=== PATIENT | female | born 1955 | race Caucasian/White ===

== ENCOUNTER → 2016-10-31 | Outpatient (CLI) | payer MEDICAID ==
--- NOTE | 2016-10-31 09:35 | FL ---
EXAMINATION TYPE: FL barium swallow DATE OF EXAM: 10/31/2016 9:25 AM COMPARISON: NONE HISTORY: Heartburn TECHNIQUE: Double contrast GI is performed. 8 seconds of fluoroscopic time utilized. FINDINGS: Barium and air was swallowed without difficulty and passed and the esophagus without delay. Esophageal peristalsis and motility was normal. There was no evidence of a hiatal hernia. There was mild gastroesophageal reflux. Incidental note made of surgical clips near the gallbladder fossa. IMPRESSION: 1. Mild gastroesophageal reflux.
== END | disposition home or self-care (01) ==
LOC: RADFLWHC 08:50
PROVIDERS: ATTEND Family Medicine
DX: K21.9 Gastro-esophageal reflux disease without esophagitis (principal)
CPT/HCPCS: 74220

== ENCOUNTER 2017-04-16 22:35 | Observation (INO) | payer MEDICAID ==
[2017-04-16] MEDS ORDERED: NITROGLYCERIN OINT 1 INCH/GM PACKET TOPICAL STA (23:03)
[2017-04-16] MEDS ORDERED: ASPIRIN 81 MG PO STA (23:03)
[2017-04-16 23:19] LABS: Basophils # (A) 0.1 k/uL (0-0.2); Basophils % (A) 1 %; CHCM 34.6; Eosinophils # (A) 0.1 k/uL (0-0.7); Eosinophils % (A) 2 %; HDW 2.41; HGB 14.1 gm/dL (11.4-16.0); Luc # (Auto) 0.15; Luc % (Auto) 2; Lymphocytes # (A) 2.2 k/uL (1.0-4.8); Lymphocytes % (A) 24 %; MCH 31.1 pg (25.0-35.0); MCHC 33.5 g/dL (31.0-37.0); MCV 92.8 fL (80.0-100.0); Mean Platelet Volume 8.2; Monocytes # (A) 0.5 k/uL (0-1.0); Monocytes % (A) 5 %; Neutrophils # (A) 5.9 k/uL (1.3-7.7); Neutrophils % (A) 67 %; RBC 4.53 m/uL (3.80-5.40); RDW 13.4 % (11.5-15.5); WBC 8.9 k/uL (3.8-10.6); WBC (Perox) 8.57
[2017-04-16 23:26] LABS: ALT 45 U/L (9-52); AST 28 U/L (14-36); Alkaline Phosphatase 82 U/L (38-126); Anion Gap 12 mmol/L; Blood Urea Nitrogen 16 mg/dL (7-17); Calcium 9.9 mg/dL (8.4-10.2); Carbon Dioxide 25 mmol/L (22-30); Chloride 102 mmol/L (98-107); Glucose 132 mg/dL (74-99); Magnesium 1.5 mg/dL (1.6-2.3); Non-African American GFR(MDRD) >60 (>60 ml/min/1.73 sqM); Potassium 3.8 mmol/L (3.5-5.1); Sodium 139 mmol/L (137-145); Total Bilirubin 0.3 mg/dL (0.2-1.3); Total Protein 7.4 g/dL (6.3-8.2)
[2017-04-16 23:31] LABS: Partial Thromboplastin Time 22.7 sec (22.0-30.0); Prothrombin Time 10.3 sec (9.0-12.0)
[2017-04-16 23:37] LABS: Creatine Kinase 49 U/L (30-135)
--- NOTE | 2017-04-16 23:46 | XR ---
EXAM: XR Chest, 2 Views CLINICAL HISTORY: Reason: Chest Pain TECHNIQUE: Frontal and lateral views of the chest. COMPARISON: CXR 11/09/14 FINDINGS: Lungs: Unremarkable. No consolidation. Pleural space: Unremarkable. No pneumothorax. Heart: Unremarkable. No cardiomegaly. Mediastinum: Unremarkable. Bones/joints: Multilevel degenerative changes of the spine. IMPRESSION: No acute findings.
[2017-04-16 23:52] LABS: Creatine Kinase MB 0.5 ng/mL (0.0-2.4); Troponin I <0.012 ng/mL (0.000-0.034)
--- NOTE | 2017-04-17 00:39 | ED ---
Chest Pain HPI - General Chief Complaint: Chest Pain Stated Complaint: Chest pains Time Seen by Provider: 04/16/17 22:58 Source: patient Mode of arrival: wheelchair Limitations: no limitations - History of Present Illness Initial Comments: This 61-year-old white female presents with with a complaint of some chest pain and palpitations which started around 9:00 this evening. She states that it felt like her heart was beating very fast. She had some mild left- sided chest pain at that time as well. It is hard for described the exact sensation. She had some mild shortness of breath as well. She denies any previous similar incidents. She just had a stress test several months ago which was negative. She had a heart catheterization in the last year or so ago which was apparently negative. She denies any leg pain or swelling. She denies any history of DVT or PE. His been no cough or fever. She states that there is a family history of cardiac disease as well. No other complaints or modifying factors. - Related Data Home Medications Medication Instructions Recorded Confirmed Aspirin EC [Ecotrin] 81 mg PO DAILY 05/10/14 04/16/17 Metoprolol Tartrate [Lopressor] 50 mg PO BID 05/10/14 04/16/17 Omeprazole [PriLOSEC] 20 mg PO DAILY 05/10/14 04/16/17 metFORMIN HCL [Glucophage] 500 mg PO DAILY 05/10/14 04/16/17 Ibuprofen [Motrin] 600 mg PO ONCE PRN 04/16/17 04/16/17 glipiZIDE [Glucotrol] 5 mg PO DAILY 04/16/17 04/16/17 sitaGLIPtin PHOSPHATE [Januvia] 100 mg PO DAILY 04/16/17 04/16/17 Allergies Allergy/AdvReac Type Severity Reaction Status Date / Time Penicillins Allergy Unknown Rash/Hives Verified 04/16/17 23:08 Review of Systems ROS Statement: Those systems with pertinent positive or pertinent negative responses have been documented in the HPI. ROS Other: All systems not noted in ROS Statement are negative. 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 History of Any Multi-Drug Resistant Organisms: None Reported Past Surgical History: Appendectomy, Cholecystectomy, Hysterectomy Additional Past Surgical History / Comment(s): ISABELL CARPAL TUNNEL. Past Anesthesia/Blood Transfusion Reactions: No Reported Reaction Past Psychological History: No Psychological Hx Reported Smoking Status: Never smoker Past Alcohol Use History: None Reported Past Drug Use History: None Reported - Past Family History Mother Family Medical History: Hypertension Father Family Medical History: Diabetes Mellitus, Hypertension Additional Family Medical History / Comment(s): heart problems General Exam - General Exam Comments Initial Comments: GENERAL: The patient is well nourished and well hydrated. VITAL SIGNS: Heart rate, blood pressure, respiratory rate reviewed as recorded in nurse's notes. EYES: Pupils are round and reactive. Extraocular movements are intact. No conjunctival / lid redness or swelling. ENT: No external evidence of injury, swelling, or ecchymosis. Airway is patent. Throat is clear. NECK: Nontender. No swelling or evidence of injury. No subcutaneous emphysema. Trachea is midline. No thyroid mass. HEART: Regular rate and rhythm. Good peripheral pulses. LUNGS/CHEST: Breath sounds clear and equal bilaterally. No rales, rhonchi, or wheezes. No ecchymosis, subcutaneous emphysema, or tenderness. ABDOMEN: Abdomen soft without tenderness. No palpable masses or organomegaly. No peritoneal signs. No abdominal wall swelling or ecchymosis. EXTREMITIES: No extremity tenderness. Normal muscle tone and function. No thoracolumbar tenderness. NEUROLOGIC: Sensation is grossly intact. Cranial nerve exam reveals face is symmetrical, tongue is midline, speech is clear. SKIN: No abrasions or ecchymosis is noted. No induration or masses noted. PSYCHIATRIC: Alert and oriented. Appropriate behavior and judgment. Limitations: no limitations Course Vital Signs 04/16/17 04/16/17 04/17/17 22:37 23:07 00:06 Temperature 98.2 F Pulse Rate 78 77 64 Respiratory 20 18 18 Rate Blood Pressure 194/87 189/79 145/67 O2 Sat by Pulse 97 98 96 Oximetry Chest Pain MDM - MDM The patient was seen and examined. All diagnostics were reviewed. The EKG shows a normal sinus rhythm at a rate of 73. There is no acute ST-T wave changes identified. The SC interval is 170, the QRS duration is 84, and the QTc interval is 438. The patient's cardiac profile labs and d-dimer are all negative. The chest x-ray does not show any acute process. The exact cause of her symptoms is not definitively determined. The possibility of acute coronary syndrome is possible. The possibility of a cardiac arrhythmia is possible as well. It is felt as though she would benefit from admission to the hospital. The case will be discussed with internal medicine in the near future and she will be admitted with cardiology to consult. Disposition Clinical Impression: Dyspnea, Chest pain, Palpitations Disposition: ADMITTED IP TO THIS [facility] Condition: Good Time of Disposition: 00:39 Decision Date: 04/17/17 Decision Time: 00:39
[2017-04-17] MEDS ORDERED: NITROGLYCERIN SL TABS 0.4 MG TAB SUBLINGUAL PRN (00:40)
[2017-04-17] MEDS ORDERED: IBUPROFEN 200 MG TAB PO PRN (00:43)
[2017-04-17] MEDS ORDERED: ACETAMINOPHEN TAB 500 MG TAB PO STA (00:44)
[2017-04-17 01:27] VITALS: BMI 42.3
[2017-04-17] MEDS: ACETAMINOPHEN TAB 325 MG TAB PO PRN ×2 (03:48→12:46)
[2017-04-17 05:42] LABS: Creatine Kinase 39 U/L (30-135)
[2017-04-17 05:55] LABS: Creatine Kinase MB 0.5 ng/mL (0.0-2.4); Troponin I <0.012 ng/mL (0.000-0.034)
[2017-04-17] MEDS ORDERED: NITROGLYCERIN OINT 1 INCH/GM PACKET TOPICAL SCH (06:00)
[2017-04-17 06:50] LABS: Glucose,Whole Blood 121 mg/dL (75-99)
[2017-04-17 08:07] VITALS: RESP 18
[2017-04-17] MEDS ORDERED: LINAGLIPTIN 5 MG TABLET PO SCH (09:00)
[2017-04-17] MEDS ORDERED: glipiZIDE 5 MG TAB PO SCH (09:00)
[2017-04-17] MEDS ORDERED: METOPROLOL TARTRATE 50 MG TAB PO SCH (09:00)
[2017-04-17] MEDS ORDERED: PANTOPRAZOLE 40 MG TABLET PO SCH (09:00)
[2017-04-17] MEDS ORDERED: metFORMIN 500 MG TAB PO SCH (09:00)
[2017-04-17] MEDS ORDERED: ENOXAPARIN 40 MG/0.4 ML SYRINGE SQ SCH (09:00)
--- NOTE | 2017-04-17 09:44 | P.CRDCN ---
History of Present Illness Consult date: 04/17/17 History of present illness: This is a 61 year old female. She has past medical history significant for HTN, DM, dyslipidemia, morbid obesity and family history of CAD. She presented to the hospital with complaints of pounding in her chest lasting approximately one hour. She states over the previous week she has noticed some right shoulder and midsternal achiness that she did not correlate with her heart until these palpitations began. At that time she decided she should come to the emergency department for evaluation and see if the tumor possibly related. She complains of associated shortness of breath and dizziness as well. Palpitations subsided on their own after approximately one hour but the achiness in the right shoulder and midsternal region has remained. She states she's never felt these palpitation type symptoms before. She recently had a full cardiac workup as an outpatient with Dr. GODINEZ per week including stress test and echocardiogram. Her Barb scan was negative for any ischemia and her echocardiogram revealed normal LV function with an ejection fraction of 55%. EKG on admission indicates a normal sinus mechanism with no T-wave abnormality or ST changes. Chest x-ray is negative for any acute cardiopulmonary process. Troponins are negative 2. D-dimer is negative. Magnesium 1.5. Blood pressure this morning 155/65 with a heart rate of 54. Maintained on metoprolol 50 mg twice a day. Review of Systems REVIEW OF SYSTEMS: Patient denies any chest discomfort. No shortness of breath. No diaphoresis. Denies headache, dizziness, blurred vision, double vision. No dyspnea on exertion. Patient denies any stomach discomfort. No nausea, vomiting. No hematochezia. No hematemesis. Denies any black stools or blood in his stools. No syncope. No palpitations. No cough. No recent fever or chills. No muscle weakness or numbness. 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 History of Any Multi-Drug Resistant Organisms: None Reported Past Surgical History: Appendectomy, Cholecystectomy, Heart Catheterization, Hysterectomy Additional Past Surgical History / Comment(s): ISABELL CARPAL TUNNEL. Past Anesthesia/Blood Transfusion Reactions: No Reported Reaction Past Psychological History: No Psychological Hx Reported Smoking Status: Never smoker Past Alcohol Use History: None Reported Past Drug Use History: None Reported - Past Family History Mother Family Medical History: Hypertension Father Family Medical History: Diabetes Mellitus, Hypertension Additional Family Medical History / Comment(s): heart problems Medications and Allergies Home Medications Medication Instructions Recorded Confirmed Type Aspirin EC [Ecotrin] 81 mg PO DAILY 05/10/14 04/16/17 History Metoprolol Tartrate [Lopressor] 50 mg PO BID 05/10/14 04/16/17 History Omeprazole [PriLOSEC] 20 mg PO DAILY 05/10/14 04/16/17 History metFORMIN HCL [Glucophage] 500 mg PO DAILY 05/10/14 04/16/17 History Ibuprofen [Motrin] 600 mg PO ONCE PRN 04/16/17 04/16/17 History glipiZIDE [Glucotrol] 5 mg PO DAILY 04/16/17 04/16/17 History sitaGLIPtin PHOSPHATE [Januvia] 100 mg PO DAILY 04/16/17 04/16/17 History Allergies Allergy/AdvReac Type Severity Reaction Status Date / Time Penicillins Allergy Unknown Rash/Hives Verified 04/16/17 23:08 Physical Exam Vitals: Vital Signs Temp Pulse Pulse Resp BP BP Pulse Ox 04/17/17 04:00 52 L 16 04/17/17 03:55 98.0 F 54 L 16 155/65 97 04/17/17 01:19 97.8 F 62 16 151/66 96 04/17/17 01:05 97.5 F L 63 18 133/60 98 04/17/17 00:06 64 18 145/67 96 04/16/17 23:07 77 18 189/79 98 04/16/17 22:37 98.2 F 78 20 194/87 97 Intake and Output 04/16/17 04/17/17 04/17/17 22:59 06:59 14:59 Other: Voiding Method Toilet # Voids 3 Weight 99.79 kg 105 kg GENERAL: This is a 61-year-old female in no apparent distress at the time of my examination. Obese. HEENT: Head is atraumatic, normocephalic. Pupils are equal, round. Sclerae anicteric. Conjunctivae are clear. Mucous membranes of the mouth are moist. Neck is supple. There is no jugular venous distention. No carotid bruit is heard. LUNGS: Clear to auscultation no wheezes, rales or rhonchi. No chest wall tenderness is noted on palpation or with deep breathing. HEART: Regular rate and rhythm without murmurs, rubs or gallops. S1 and S2 heard. ABDOMEN: Soft, nontender. Bowel sounds are heard. No organomegaly noted. EXTREMITIES: 2+ peripheral pulses with no evidence of peripheral edema and no calf tenderness noted. NEUROLOGIC: Patient is awake, alert and oriented x3. Results 04/16/17 23:00 04/16/17 23:00 Cardiac Enzymes 04/16/17 04/16/17 04/17/17 Range/Units 23:00 23:00 04:52 AST 28 (14-36) U/L CK-MB (CK-2) 0.5 0.5 (0.0-2.4) ng/mL Troponin I <0.012 <0.012 (0.000-0.034) ng/mL Coagulation 04/16/17 Range/Units 23:00 PT 10.3 (9.0-12.0) sec APTT 22.7 (22.0-30.0) sec CBC 04/16/17 Range/Units 23:00 WBC 8.9 (3.8-10.6) k/uL RBC 4.53 (3.80-5.40) m/uL Hgb 14.1 (11.4-16.0) gm/dL Hct 42.0 (34.0-46.0) % Plt Count 216 (150-450) k/uL Comprehensive Metabolic Panel 04/16/17 Range/Units 23:00 Sodium 139 (137-145) mmol/L Potassium 3.8 (3.5-5.1) mmol/L Chloride 102 (98-107) mmol/L Carbon Dioxide 25 (22-30) mmol/L BUN 16 (7-17) mg/dL Creatinine 0.90 (0.52-1.04) mg/dL Glucose 132 H (74-99) mg/dL Calcium 9.9 (8.4-10.2) mg/dL AST 28 (14-36) U/L ALT 45 (9-52) U/L Alkaline Phosphatase 82 (38-126) U/L Total Protein 7.4 (6.3-8.2) g/dL Albumin 4.1 (3.5-5.0) g/dL Current Medications Generic Name Dose Route Start Last Admin Trade Name Freq PRN Reason Stop Dose Admin Acetaminophen 650 mg 04/17/17 00:44 04/17/17 03:48 Tylenol Tab PO 650 mg Q6H PRN Administration Headache Aspirin 325 mg 04/18/17 09:00 Aspirin PO DAILY [facility] Enoxaparin Sodium 40 mg 04/17/17 09:00 Lovenox SQ DAILY AKIN Glipizide 5 mg 04/17/17 09:00 Glucotrol PO DAILY AKIN Ibuprofen 600 mg 04/17/17 00:43 Advil PO ONCE PRN Pain Linagliptin 5 mg 04/17/17 09:00 Tradjenta PO DAILY [facility] Metformin HCl 500 mg 04/17/17 09:00 Glucophage PO DAILY [facility] Metoprolol Tartrate 50 mg 04/17/17 09:00 Lopressor PO BID [facility] Nitroglycerin 1 inch 04/17/17 06:00 04/17/17 05:49 Nitro-Bid Oint TOPICAL Not Given Q6HR [facility] Nitroglycerin 0.4 mg 04/17/17 00:40 Nitrostat SUBLINGUAL Q5M PRN Chest Pain Pantoprazole Sodium 40 mg 04/17/17 09:00 Protonix PO DAILY AKIN Intake and Output 04/16/17 04/17/17 04/17/17 22:59 06:59 14:59 Other: Voiding Method Toilet # Voids 3 Weight 99.79 kg 105 kg 04/16/17 23:00 04/16/17 23:00 EKG Interpretations (text) EKG indicates a normal sinus mechanism with no ST or T wave abnormalities noted. Assessment and Plan Plan: ASSESSMENT 1. Palpitations 2. Chest pain, atypical 3. Essential hypertension 4. Diabetes mellitus type 2 5. Hypomagnesemia PLAN Replace magnesium per protocol. Apply 30 day event monitor. Results to go to Dr. VC Srivastava. The patient is stable for discharge home from a cardiac standpoint. She can follow-up with Dr. Srivastava in 2 weeks. Nurse Practitioner note has been reviewed, I agree with a documented findings and plan of care. Patient was seen and examined.
[2017-04-17] MEDS ORDERED: Magnesium Replacement Protocol 1 EACH MISC MISCELLANE PRN ×2 (09:45→11:45)
[2017-04-17] MEDS: MAGNESIUM SULFATE-D5W PMX 1 GM in DEXTROSE/WATER 1 100ML.BAG IVPB SCH ×2 (10:25→11:29)
[2017-04-17 11:39] LABS: Creatine Kinase 42 U/L (30-135)
[2017-04-17 11:52] LABS: Creatine Kinase MB 0.4 ng/mL (0.0-2.4); Troponin I <0.012 ng/mL (0.000-0.034)
[2017-04-17 12:04] VITALS: BP 161/67; PULSE 60; TEMP 97.5
[2017-04-17 13:23] LABS: Cholesterol 194 mg/dL (<200); HDL Cholesterol 46 mg/dL (40-60)
[2017-04-17 14:07] LABS: Glucose,Whole Blood 200 mg/dL (75-99)
[2017-04-17 14:40] LABS: Glucose,Whole Blood 157 mg/dL (75-99)
--- NOTE | 2017-04-17 15:13 | P.HPIM ---
History of Present Illness This is a 61 year old female. She has past medical history significant for HTN, DM, dyslipidemia, morbid obesity and family history of CAD. She presented to the hospital with complaints of pounding in her chest lasting approximately one hour. She states over the previous week she has noticed some right shoulder and midsternal achiness that she did not correlate with her heart until these palpitations began. She complains of associated shortness of breath and dizziness as well. Palpitations subsided on their own after approximately one hour but the achiness in the right shoulder and midsternal region has remained. She states she's never felt these palpitation type symptoms before. She recently had a full cardiac workup as an outpatient including stress test and echocardiogram. Her Barb scan was negative for any ischemia and her echocardiogram revealed normal LV function with an ejection fraction of 55%. Patient was ruled out acute coronary syndromes here and all the workup is negative and patient is being discharged on event monitor. EKG on admission indicates a normal sinus mechanism with no T-wave abnormality or ST changes. Review of Systems REVIEW OF SYSTEMS: CONSTITUTIONAL: No fever, no malaise, no fatigue. HEENT: No recent visual problems or hearing problems. Denied any sore throat. CARDIOVASCULAR: As mentioned in HPI PULMONARY: No shortness of breath, no cough, no hemoptysis. GASTROINTESTINAL: No diarrhea, no nausea, no vomiting, no abdominal pain. Normoactive bowel sounds. NEUROLOGICAL: No headaches, no weakness, no numbness. HEMATOLOGICAL: Denies any bleeding or petechiae. GENITOURINARY: Denies any burning micturition, frequency, or urgency. MUSCULOSKELETAL/RHEUMATOLOGICAL: Denies any joint pain, swelling, or any muscle pain. ENDOCRINE: Denies any polyuria or polydipsia. The rest of the 14-point review of systems is negative. 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 History of Any Multi-Drug Resistant Organisms: None Reported Past Surgical History: Appendectomy, Cholecystectomy, Heart Catheterization, Hysterectomy Additional Past Surgical History / Comment(s): ISABELL CARPAL TUNNEL. Past Anesthesia/Blood Transfusion Reactions: No Reported Reaction Past Psychological History: No Psychological Hx Reported Smoking Status: Never smoker Past Alcohol Use History: None Reported Past Drug Use History: None Reported - Past Family History Mother Family Medical History: Hypertension Father Family Medical History: Diabetes Mellitus, Hypertension Additional Family Medical History / Comment(s): heart problems Medications and Allergies Home Medications Medication Instructions Recorded Confirmed Type Aspirin EC [Ecotrin Low Dose] 81 mg PO DAILY 05/10/14 04/16/17 History Metoprolol Tartrate [Lopressor] 50 mg PO BID 05/10/14 04/16/17 History Omeprazole [PriLOSEC] 20 mg PO DAILY 05/10/14 04/16/17 History metFORMIN HCL [Glucophage] 500 mg PO DAILY 05/10/14 04/16/17 History glipiZIDE [Glucotrol] 5 mg PO DAILY 04/16/17 04/16/17 History sitaGLIPtin PHOSPHATE [Januvia] 100 mg PO DAILY 04/16/17 04/16/17 History Allergies Allergy/AdvReac Type Severity Reaction Status Date / Time Penicillins Allergy Unknown Rash/Hives Verified 04/16/17 23:08 Physical Exam Vitals: Vital Signs Temp Pulse Pulse Resp BP BP Pulse Ox 04/17/17 12:00 97.5 F L 60 18 161/67 94 L 04/17/17 08:00 98.1 F 63 18 150/69 97 04/17/17 04:00 52 L 16 04/17/17 03:55 98.0 F 54 L 16 155/65 97 04/17/17 01:19 97.8 F 62 16 151/66 96 04/17/17 01:05 97.5 F L 63 18 133/60 98 04/17/17 00:06 64 18 145/67 96 04/16/17 23:07 77 18 189/79 98 04/16/17 22:37 98.2 F 78 20 194/87 97 Intake and Output 04/17/17 04/17/17 04/17/17 06:59 14:59 22:59 Intake Total 240 Balance 240 Intake: Oral 240 Other: Voiding Method Toilet Toilet # Voids 3 Weight 105 kg PHYSICAL EXAMINATION: GENERAL: The patient is alert and oriented x3, not in any acute distress. Well developed, well nourished. HEENT: Pupils are round and equally reacting to light. EOMI. No scleral icterus. No conjunctival pallor. Normocephalic, atraumatic. No pharyngeal erythema. No thyromegaly. CARDIOVASCULAR: S1 and S2 present. No murmurs, rubs, or gallops. PULMONARY: Chest is clear to auscultation, no wheezing or crackles. ABDOMEN: Soft, nontender, nondistended, normoactive bowel sounds. No palpable organomegaly. MUSCULOSKELETAL: No joint swelling or deformity. EXTREMITIES: No cyanosis, clubbing, or pedal edema. NEUROLOGICAL: Gross neurological examination did not reveal any focal deficits. SKIN: No rashes. Results CBC & Chem 7: 04/16/17 23:00 04/16/17 23:00 Labs: Abnormal Lab Results - Last 24 Hours (Table) 04/16/17 04/17/17 04/17/17 Range/Units 23:00 06:48 10:45 Glucose 132 H (74-99) mg/dL POC Glucose (mg/dL) 121 H (75-99) mg/dL Magnesium 1.5 L (1.6-2.3) mg/dL LDL Cholesterol, Calc 119 H (0-99) mg/dL 04/17/17 04/17/17 Range/Units 11:55 14:36 Glucose (74-99) mg/dL POC Glucose (mg/dL) 200 H 157 H (75-99) mg/dL Magnesium (1.6-2.3) mg/dL LDL Cholesterol, Calc (0-99) mg/dL Thrombosis Risk Factor Assmnt - Choose All That Apply Each Factor Represents 1 point: Acute CA, Obesity (BMI >25) Thrombosis Risk Factor Assessment Total Risk Factor Score: 2 Thrombosis Risk Factor Assessment Level: Low Risk Assessment and Plan Plan: #1 chest pain: Rule out acute coronary syndromes and patient is a recent stress test which was negative patient chest pain is atypical in nature probably related to palpitations. Patient is cleared for discharge. #2 palpitations: Rhythm is unknown at this point of time patient is being discharged on event monitor. #3 essential hypertension next and #4 type 2 diabetes mellitus #5 hypomagnesemia which was corrected. #6 gastroesophageal infectious disease
--- NOTE | 2017-04-17 15:13 | P.DS ---
Providers Date of admission: 04/17/17 00:40 Attending physician: Rahul White Consults: 04/17/17 00:40 Consult Physician Urgent Consulting Provider: Michelle Velasco Consult Reason/Comments: cp, palpitations Do you want consulting provider notified?: Yes [facility] Course: Please refer to HPI Patient Condition at Discharge: Good Plan - Discharge Summary New Discharge Prescriptions: Continue Omeprazole [PriLOSEC] 20 mg PO DAILY metFORMIN HCL [Glucophage] 500 mg PO DAILY Metoprolol Tartrate [Lopressor] 50 mg PO BID Aspirin EC [Ecotrin Low Dose] 81 mg PO DAILY sitaGLIPtin PHOSPHATE [Januvia] 100 mg PO DAILY glipiZIDE [Glucotrol] 5 mg PO DAILY Discontinued Ibuprofen [Motrin] 600 mg PO ONCE PRN PRN Reason: Pain Discharge Medication List Aspirin EC [Ecotrin Low Dose] 81 mg PO DAILY 05/10/14 [History] Metoprolol Tartrate [Lopressor] 50 mg PO BID 05/10/14 [History] Omeprazole [PriLOSEC] 20 mg PO DAILY 05/10/14 [History] metFORMIN HCL [Glucophage] 500 mg PO DAILY 05/10/14 [History] glipiZIDE [Glucotrol] 5 mg PO DAILY 04/16/17 [History] sitaGLIPtin PHOSPHATE [Januvia] 100 mg PO DAILY 04/16/17 [History] Follow up Appointment(s)/Referral(s): Theo Fairbanks DO [Primary Care Provider] - 3 Days Dalton Srivastava MD [STAFF PHYSICIAN] - 2 Weeks Ambulatory/Diagnostic Orders: Complete Blood Count w/diff [LAB.AMB] Time Frame: 3 Days, Location: Determined By Patient Patient Instructions/Handouts: Chest Pain (GEN), Palpitations (GEN) Activity/Diet/Wound Care/Special Instructions: Diet: Cardiac, low cholesterol; states unable to take statins, event monitor Activity: Limited until follow up Discharge Disposition: HOME SELF-CARE
[2017-04-17] MEDS ORDERED: INSULIN LISPRO (humaLOG) 300 UNIT/3 ML VIAL SQ SCH (17:30)
[2017-04-17 20:45] LABS: Hemoglobin A1C 7.2 % (4.2-6.1)
[2017-04-18] MEDS ORDERED: ASPIRIN 325 MG TAB PO SCH (09:00)
== END 2017-04-17 15:04 | disposition home or self-care (01) ==
LOC: EC 22:35 → 3OBS 04-17 00:40
PROVIDERS: ADMIT Internal Medicine; ATTEND Internal Medicine
DX: R07.89 Other chest pain (principal); R42 Dizziness and giddiness; R06.02 Shortness of breath; R00.2 Palpitations; E83.42 Hypomagnesemia; E66.01 Morbid (severe) obesity due to excess calories; Z68.41 Body mass index [BMI] 40.0-44.9, adult; E11.9 Type 2 diabetes mellitus without complications; K21.9 Gastro-esophageal reflux disease without esophagitis; I10 Essential (primary) hypertension; E78.5 Hyperlipidemia, unspecified; Z79.82 Long term (current) use of aspirin; Z79.899 Other long term (current) drug therapy; Z79.84 Long term (current) use of oral hypoglycemic drugs; Z88.0 Allergy status to penicillin; Z82.49 Family history of ischemic heart disease and other diseases of the circulatory system; Z83.3 Family history of diabetes mellitus
CPT/HCPCS: 99285 ×2; 96365; 96366; 36415; 93005; 93270; 93271; 85379; 83880; 80061; 80053; 83036; 82550 ×2; 82553 ×2; 83735 ×2; 84484 ×2; 85025; 85610; 85730; 71020; G0378; J3475

== ENCOUNTER → 2017-07-09 | Outpatient (CLI) | payer MEDICAID ==
--- NOTE | 2017-07-09 20:40 | CONS ---
CONSULTATION REASON FOR CONSULTATION: Sleep apnea PRIMARY CARE PHYSICIAN: Dr. 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 The patient is coming in due to concerns of sleep apnea as the patient has been feeling more tired and sleepy and fatigued during the day. She snores. At times she has been told to quit breathing at nighttime by family members. She goes to bed around 9 p.m., wakes up 4:30 am in the morning. Average around 5-6 hours of sleep. She has occasional nighttime heartburn. No restlessness in lower extremities. She wakes up tired during the day. She is feeling sleepy. She is obese and she has gained considerable amount of weight in the order of 80 pounds over the past 10 years. Webster score is 11. Does not fall asleep while driving in the car. No history of any motor vehicle accidents because of feeling sleepy or tired. No history of sleep paralysis, cataplexy, hallucinations or nightmares. PAST MEDICAL HISTORY: Obesity, diabetes mellitus, hypertension, acid reflux. SURGICAL HISTORY: Includes appendectomy, hysterectomy, carpal tunnel release. ALLERGIES: PENICILLIN. OUTPATIENT MEDICATION LIST: Includes omeprazole 20 daily, metoprolol 50 daily, losartan 25 daily, Erik aspirin 1 tablet a day, metformin 5 mg p.o. daily, magnesium 4 mg p.o. daily. SOCIAL HISTORY: The patient is a nonsmoker. No history of alcohol. No history of IV drugs. FAMILY HISTORY: Sister and father with obstructive sleep apnea. REVIEW OF SYSTEMS: 12-point review of system was done. Positive findings are mentioned above in history of present illness. No history of insomnia. No history of gasping sensation. No history of nocturia. No sleepwalking or sleep talking. No nightmares. No anxiety. No panic attacks. No palpitations. No sleepwalking. No claustrophobia. No depression. PHYSICAL EXAMINATION: BP is 165/72, pulse 61, respirations 16, temperature 97.2, saturation 98% on room air. Neck size 15-1/2 inches, weight is 239. Height is 5 feet 3 inches, BMI is 42.3. GENERAL APPEARANCE: Calm, comfortable. HEAD: Atraumatic, normocephalic. NECK: No JVD. No goiter or neck masses. LUNGS: Clear to auscultation. HEART: Sounds regular rhythm. Normal S1, S2. No S3. No murmurs. ABDOMEN: Soft, nontender. No organomegaly. EXTREMITIES: No edema. No cyanosis or clubbing. NEUROLOGIC: A and O x3. There is no focal neurological deficit. PSYCH: Negative for anxiety or depression. SKIN: Negative for any wounds or ulceration. IMPRESSION: 1. Obstructive sleep apnea clinically suspected currently under investigation. 2. Obesity with a BMI of 42.3. 3. Hypersomnia. Webster score of 11. 4. Diabetes. 5. Hypertension. 6. Acid reflux. PLAN: 1. Weight loss. 2. Implement good sleep hygiene measures. 3. Proceed with a screening polysomnogram looking for any significant obstructive sleep apnea and treat accordingly. MMSPIKEL / IJN: [id number] /
== END | disposition home or self-care (01) ==
LOC: SLEEP 15:35
PROVIDERS: ATTEND Internal Medicine Critical Care Medicine
DX: G47.10 Hypersomnia, unspecified (principal); E11.9 Type 2 diabetes mellitus without complications; I10 Essential (primary) hypertension; K21.9 Gastro-esophageal reflux disease without esophagitis; E66.9 Obesity, unspecified; Z68.41 Body mass index [BMI] 40.0-44.9, adult; Z88.0 Allergy status to penicillin; Z79.82 Long term (current) use of aspirin; Z79.899 Other long term (current) drug therapy
CPT/HCPCS: 99211

== ENCOUNTER → 2017-10-24 | Outpatient (CLI) | payer MEDICAID ==
--- NOTE | 2017-10-24 09:14 | XR ---
EXAMINATION TYPE: XR knee complete bilateral DATE OF EXAM: 10/24/2017 COMPARISON: NONE HISTORY: Pain TECHNIQUE: 3 views of each knee are submitted. FINDINGS: There is minimal hypertrophic change along the medial compartment of the knee bilaterally. Joint spac es appear to be fairly well preserved with minimal narrowing noted along the medial compartment. No e rosive changes. Mild diffuse osteopenia. Osseous structures are intact. No acute fracture seen. IMPRESSION: 1. No acute fracture or dislocation. 2. Minimal arthritic changes bilaterally. If symptoms persist consider MRI.
== END | disposition home or self-care (01) ==
LOC: RADXRYALE 08:39
PROVIDERS: ATTEND Physician Assistant Medical
DX: M17.0 Bilateral primary osteoarthritis of knee (principal)

== ENCOUNTER → 2018-06-18 | Outpatient (CLI) | payer MEDICAID ==
--- NOTE | 2018-06-19 11:29 | MM ---
Reason for exam: screening (asymptomatic). Last mammogram was performed 1 year ago. History: Patient is postmenopausal. Physical Findings: A clinical breast exam by your physician is recommended on an annual basis and results should be correlated with mammographic findings. MG 3D Screening Mammo W/Cad Bilateral CC and MLO view(s) were taken. Prior study comparison: June 17, 2017, bilateral MG 3d screening mammo w/cad. December 12, 2015, bilateral MG screening mammo w CAD. There are scattered fibroglandular densities. There is no discrete abnormality. No significant changes when compared with prior studies. ASSESSMENT: Negative, BI-RAD 1 RECOMMENDATION: Routine screening mammogram of both breasts in 1 year.
== END | disposition home or self-care (01) ==
LOC: RADMAMWWP 06:58
PROVIDERS: ATTEND Family Medicine
DX: Z12.31 Encounter for screening mammogram for malignant neoplasm of breast (principal)
CPT/HCPCS: 77063; 77067

== ENCOUNTER → 2018-06-24 | Outpatient (CLI) | payer MEDICAID ==
--- NOTE | 2018-06-24 19:54 | PN ---
PROGRESS NOTE 62-year-old female patient, who is coming in for a compliancy check regarding her obstructive sleep apnea treatment. She was diagnosed having symptomatic obstructive sleep apnea with an AHI of 8 and the patient was given CPAP therapy at a pressure of 6 cm of water. She reports improvement in sleep quality and she is waking up much more refreshed and alert and her chronic fatigue is also improved. On today's evaluation, her Cherryville score is down to 2. Nevertheless on this compliancy data, as the patient is still having obstructive respiratory events and AHI while on treatment is still elevated at 12.6. Based on the compliance data the patient has been averaging around 5.9 hours of CPAP use per night. Her CPAP use for more than 4 hours which is above 90%. No central apneas noted. Leak factor is only 5 L/minute nasal cannula. She is using the air touch small size full-face mask. I noted that the temperature of the heated tubing that she has is at 84 degrees Fahrenheit. REVIEW OF SYSTEMS: 12-point review of system was done. Positive findings are mentioned above history of present illness. In general she is improving. She is less fatigued and tired and sleepy. No nausea or vomiting. No diarrhea. No chest pain. No palpitation. No heartburn, no reflux. PHYSICAL EXAMINATION: BP is 155/83, pulse 68, respirations 16. Cherryville score is at 2, saturation 98% on room air. Temperature 97.6, weight is 244. GENERAL APPEARANCE: Calm, comfortable. Head is atraumatic, normocephalic. NECK: Supple. There is no JVD. No goiter or neck masses. LUNGS: Diminished otherwise clear. HEART: Sounds regular rhythm. Normal S1, S2. No S3. No murmurs. ABDOMEN: Soft, nontender. No organomegaly. EXTREMITIES: No edema. No cyanosis or clubbing. IMPRESSION: 1. Symptomatic obstructive sleep apnea with an AHI of 8. Despite her clinical response, the patient still having residual obstructive respiratory events on a CPAP pressure of 6 cm of water. I would like to make further adjustments to fix this problem. 2. Chronic fatigue improved. 3. Hypersomnia improved, Cherryville score is down from 11 down to 2. 4. Diabetes. 5. Hypertension. 6. Acid reflux. PLAN: 1. Change the patient to an APAP mode with a minimum pressure of 4, maximum pressure of 10. 2. Encourage weight loss. 3. Switch this patient to an AirFit F20 medium-sized full-face mask. 4. Drop the temperature of the heated tubing down to 72 degrees Fahrenheit. 5. See me back in 3 months' time for re-evaluation. I am hoping to bring her AHI less than 5 with these measures and interventions. MMSPIKEL / IJN: [id number] /
== END | disposition home or self-care (01) ==
LOC: SLEEP 15:23
PROVIDERS: ATTEND Internal Medicine Critical Care Medicine
DX: G47.33 Obstructive sleep apnea (adult) (pediatric) (principal); E11.9 Type 2 diabetes mellitus without complications; I10 Essential (primary) hypertension; K21.9 Gastro-esophageal reflux disease without esophagitis; Z99.89 Dependence on other enabling machines and devices

== ENCOUNTER → 2018-09-09 | Outpatient (CLI) | payer MEDICAID ==
--- NOTE | 2018-09-09 17:30 | PN ---
PROGRESS NOTE This is a 62-year-old female patient with known history of obstructive sleep apnea. The patient's disease is mild with an AHI of 8. During her last visit, the patient reported poor sleep quality, increased tiredness and sleepiness while being on a CPAP pressure of 6 cm of water. On her compliance data, the patient had no significant central apneas. However, the patient was still having elevated AHI of 12.6 while being on treatment. Based on all this, I switched this patient to an APAP mode with a minimum pressure of 4, maximum pressure of 10 and asked the patient to come back for a followup in 3 months' time. On today's evaluation, the patient is feeling better. The patient is less sleepy and tired and sleep quality is improved. She is not waking up at all in the middle of the night. She is feeling much more refreshed and alert during the day. Based on the compliancy data over the past 1 month, the patient has been averaging around 5.7 hours of CPAP use at night. Her average pressure utilized at 9.9 cm which tells me that the patient is using maximum pressure of 10 cm of water most of the time. Her AHI while on treatment is down to 3.3, her leak factor is 6 L per minute. The patient has no specific complaints. She is trying to lose weight and her temperature tubing has been dropped down to 71 degrees Fahrenheit. REVIEW OF SYSTEMS: 12-point review of system was done. Weight has been stable. She is trying to lose weight. No heartburn shortness of breath chest pain, or altered mentation. No sleep apnea. No cessation of cataplexy. No nightmares. No hypersomnia or sleepiness during the day and her symptoms have improved. Combes score is down to 2 from baseline of 16. PHYSICAL EXAMINATION: Temperature is 97.8, a pulse 63, respirations 16, temp 98.1, saturation 98% on room air. GENERAL APPEARANCE: Weight is 235, height is 5 feet 3 inches, BMI 40.9, Combes score at 2. General appearance: Calm, comfortable. Head is atraumatic, normocephalic. NECK: Supple. No JVD. No goiter. No neck mass. LUNGS: Clear to auscultation. HEART: Sounds regular rate and rhythm. Normal S1, S2. No S3. No murmurs. ABDOMEN: Soft, nontender. No organomegaly. EXTREMITIES: No edema. No cyanosis or clubbing. NEUROLOGIC: The patient is alert and oriented x3. No focal neurological deficits. PSYCHIATRIC: Negative for anxiety or depression. SKIN: Negative for any wounds or ulcerations or skin lesions. IMPRESSION: 1. Symptomatic obstructive sleep apnea, AHI of 8. The patient is currently on APAP, minimum pressure of 4, maximum pressure of 10. Compliance data was checked. Clinical response is improved with his current APAP setting. 2. Hypersomnia, improved. 3. Diabetes mellitus. 4. Hypertension. 5. Acid reflux. 6. Chronic fatigue, improved. PLAN: I am going to make further adjustments. My recommendation is to change APAP settings to a minimum of 6 and a maximum of 12 cm of water. This will allow the patient to utilize higher pressure if needed. I noted that the average pressure is at 9.9 on her CPAP unit and as such, I think that at times the patient may require higher pressure and I allowed the CPAP machine to offer the higher pressure if needed. Keep the same mask interface and the patient is on an AirFit small size full-face mask and the the mask will be renewed. Encourage weight loss. Continue CPAP unit treatment and see me back in a year's time in followup. This is a satisfactory response on this patient's behalf. MMODL / IJN: [id number] /
== END | disposition home or self-care (01) ==
LOC: SLEEP 15:20
PROVIDERS: ATTEND Internal Medicine Critical Care Medicine
DX: G47.33 Obstructive sleep apnea (adult) (pediatric) (principal); E11.9 Type 2 diabetes mellitus without complications; I10 Essential (primary) hypertension; K21.9 Gastro-esophageal reflux disease without esophagitis; Z99.89 Dependence on other enabling machines and devices

== ENCOUNTER → 2018-12-04 | Outpatient (CLI) | payer MEDICAID ==
--- NOTE | 2018-12-04 14:50 | XR ---
EXAMINATION TYPE: XR wrist complete LT DATE OF EXAM: 12/04/2018 COMPARISON: NONE HISTORY: Pain TECHNIQUE: Four views submitted. FINDINGS: The osseous structures are intact. The joint spaces are preserved and there is no acute fracture or dislocation. IMPRESSION: 1. No definite acute fracture or dislocation if symptoms persist, follow-up study in 7 to 10 days wo uld be suggested
== END ==
LOC: RADXRYALE 13:45
PROVIDERS: ATTEND Physician Assistant Medical
DX: M25.532 Pain in left wrist (principal)

== ENCOUNTER → 2019-05-25 | Outpatient (CLI) | payer MEDICAID ==
--- NOTE | 2019-05-25 12:37 | XR ---
Left knee HISTORY: Left knee pain 3 views the left knee correlated to previous exam 10/24/2017 Bone mineralization, joint spaces and alignment are maintained. No fracture or dislocation. IMPRESSION: No significant abnormality. Consider knee MRI.
== END ==
LOC: RADXRYALE 09:59
PROVIDERS: ATTEND Physician Assistant Medical
DX: M25.562 Pain in left knee (principal)

== ENCOUNTER → 2019-07-06 | Outpatient (CLI) | payer MEDICAID ==
--- NOTE | 2019-07-06 12:47 | MR ---
EXAMINATION TYPE: MR knee LT wo con DATE OF EXAM: 07/06/2019 COMPARISON: Plain film 06/16/2019 HISTORY: Left knee pain TECHNIQUE: Multiplanar, multisequence imaging of the left knee is performed without IV contrast. FINDINGS: MEDIAL MENISCUS: Anterior and posterior horns are intact without tear. LATERAL MENISCUS: At the inferior margin of the posterior horn of the lateral meniscus there is abnor mal linear increased signal suspicious for tear extending into the root. CRUCIATE LIGAMENTS: The anterior and posterior cruciate ligaments are intact and unremarkable. COLLATERAL LIGAMENTS: The medial collateral ligament and lateral collateral ligament complex are inta ct and unremarkable. EXTENSOR MECHANISM: Visualized quadriceps and patellar tendons are intact. EFFUSION: Minimal joint effusion. POPLITEAL CYST: Minimal semimembranosus gastrocnemius cyst. TRICOMPARTMENT SPACES: Maintained CARTILAGE: Grade 2 to grade III chondromalacia posterior patella. BONE MARROW SIGNAL: No focal abnormal marrow signal is appreciated. OTHER: The origin of the gastrocnemius tendon medial belly shows abnormal increased signal at its or igin. IMPRESSION: Tear of the posterior horn of the lateral meniscus. Suspect tear or strain of the origin of the media l belly gastrocnemius tendon.
== END | disposition home or self-care (01) ==
LOC: RADMRIMAIN 09:54
PROVIDERS: ATTEND Orthopaedic Surgery
DX: S83.282A Other tear of lateral meniscus, current injury, left knee, initial encounter (principal)

== ENCOUNTER → 2019-08-27 | Outpatient (CLI) | payer MEDICAID ==
[2019-08-27 10:34] LABS: Potassium 4.6 mmol/L (3.5-5.1)
[2019-08-27 10:42] LABS: Basophils # (A) 0.1 k/uL (0-0.2); Basophils % (A) 1 %; Eosinophils # (A) 0.1 k/uL (0-0.7); Eosinophils % (A) 1 %; HCT 46.4 % (34.0-46.0); HGB 15.1 gm/dL (11.4-16.0); Hypochromasia Slight; Lymphocytes # (A) 2.5 k/uL (1.0-4.8); Lymphocytes % (A) 21 %; MCH 31.2 pg (25.0-35.0); MCHC 32.5 g/dL (31.0-37.0); MCV 95.9 fL (80.0-100.0); Monocytes # (A) 0.9 k/uL (0-1.0); Monocytes % (A) 7 %; Neutrophils # (A) 8.3 k/uL (1.3-7.7); Neutrophils % (A) 68 %; Platelet Count 303 k/uL (150-450); RBC 4.83 m/uL (3.80-5.40); RDW 12.7 % (11.5-15.5); WBC 12.2 k/uL (3.8-10.6)
== END | disposition home or self-care (01) ==
LOC: LABPAT 09:13
PROVIDERS: ATTEND Orthopaedic Surgery
DX: Z01.812 Encounter for preprocedural laboratory examination (principal); M23.92 Unspecified internal derangement of left knee
CPT/HCPCS: 80051; 85025; 93005

== ENCOUNTER 2019-09-02 17:19 | Inpatient (IN) | payer MEDICAID ==
[2019-09-02] MEDS ORDERED: NITROGLYCERIN OINT 1 INCH/GM PACKET TOPICAL STA (17:31)
[2019-09-02] MEDS ORDERED: ASPIRIN 81 MG PO STA (17:31)
--- NOTE | 2019-09-02 17:34 | ED ---
General Adult HPI - General Stated complaint: Chest Pain Time Seen by Provider: 09/02/19 17:25 Source: patient, RN notes reviewed Mode of arrival: EMS Limitations: no limitations - History of Present Illness Initial comments: Patient is a pleasant 63-year-old female presenting to the emergency Department with complaints of chest discomfort. Onset of symptoms was less than 2 hours ago. Patient did witness an accident and following that her some pressure in her chest. Discomfort started to become severe rated 10/10. Discomfort described as pressure. Patient did have associated dyspnea and diaphoresis. No nausea. EMS provided 2 nitroglycerin with improvement of symptoms. Discomfort is currently rated 2/10. No radiation of discomfort. Patient does have history of similar symptoms 4-5 years ago and had a heart catheterization but no stenting. - Related Data Home Medications Medication Instructions Recorded Confirmed Aspirin EC [Ecotrin Low Dose] 81 mg PO DAILY 05/10/14 08/28/19 Metoprolol Tartrate [Lopressor] 50 mg PO BID 05/10/14 08/28/19 Omeprazole [PriLOSEC] 20 mg PO DAILY 05/10/14 08/28/19 metFORMIN HCL [Glucophage] 500 mg PO DAILY 05/10/14 08/28/19 glipiZIDE [Glucotrol] 5 mg PO DAILY 04/16/17 08/28/19 Dulaglutide [Trulicity] 0.5 mg SQ Q7D 08/28/19 08/28/19 Ergocalciferol [Vitamin D2] 50,000 unit PO Q14D 08/28/19 08/28/19 Allergies Allergy/AdvReac Type Severity Reaction Status Date / Time Penicillins Allergy Unknown Rash/Hives Verified 09/02/19 17:33 Review of Systems ROS Statement: Those systems with pertinent positive or pertinent negative responses have been documented in the HPI. ROS Other: All systems not noted in ROS Statement are negative. Constitutional: Denies: fever Eyes: Denies: eye pain ENT: Denies: ear pain Respiratory: Reports: as per HPI. 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 History of Any Multi-Drug Resistant Organisms: None Reported Past Surgical History: Appendectomy, Cholecystectomy, Heart Catheterization, Hysterectomy Additional Past Surgical History / Comment(s): ISABELL CARPAL TUNNEL. Past Anesthesia/Blood Transfusion Reactions: No Reported Reaction Smoking Status: Never smoker - Past Family History Mother Family Medical History: Hypertension Additional Family Medical History / Comment(s): HEART PROBLEMS Father Family Medical History: Diabetes Mellitus, Hypertension Additional Family Medical History / Comment(s): heart problems General Exam Limitations: no limitations General appearance: alert, in no apparent distress Head exam: Present: normocephalic Eye exam: Present: normal appearance Neck exam: Present: normal inspection Respiratory exam: Present: normal lung sounds bilaterally. Absent: chest wall tenderness Cardiovascular Exam: Present: regular rate, normal rhythm Expanded Peripheral pulses: 2+: Radial (R), Radial (L), Posterior Tibialis (R), Posterior Tibialis (L), Dorsalis Pedis (R), Dorsalis Pedis (L) GI/Abdominal exam: Present: soft. Absent: tenderness Extremities exam: Present: normal inspection. Absent: pedal edema, calf tenderness Neurological exam: Present: alert Psychiatric exam: Present: normal affect, normal mood Skin exam: Present: normal color Course Vital Signs 09/02/19 09/02/19 17:26 18:53 Temperature 97.6 F Pulse Rate 61 64 Respiratory 18 18 Rate Blood Pressure 185/89 162/69 O2 Sat by Pulse 99 98 Oximetry EKG Findings - EKG Comments: EKG Findings:: Normal sinus rhythm, rate of 62. VT 150. QRS 90. QT 412. QTC 418. Normal axis. Septal Q waves. No acute ST change. Medical Decision Making - Medical Decision Making Patient reevaluated and resting comfortably in bed. Patient remains symptom f ree at this time. Patient and family updated on results and plan. Case was discussed in detail with Dr. cramer, who will admit covering for Dr. Myra Stratton. - Lab Data Result diagrams: 09/02/19 17:50 09/02/19 17:50 Lab Results 09/02/19 09/02/19 09/02/19 Range/Units 17:50 17:50 17:50 WBC 10.8 H (3.8-10.6) k/uL RBC 4.77 (3.80-5.40) m/uL Hgb 14.3 (11.4-16.0) gm/dL Hct 43.2 (34.0-46.0) % MCV 90.7 D (80.0-100.0) fL MCH 30.1 (25.0-35.0) pg MCHC 33.2 (31.0-37.0) g/dL RDW 12.7 (11.5-15.5) % Plt Count 255 (150-450) k/uL Neutrophils % 79 % Lymphocytes % 15 % Monocytes % 4 % Eosinophils % 1 % Basophils % 1 % Neutrophils # 8.4 H (1.3-7.7) k/uL Lymphocytes # 1.6 (1.0-4.8) k/uL Monocytes # 0.4 (0-1.0) k/uL Eosinophils # 0.1 (0-0.7) k/uL Basophils # 0.1 (0-0.2) k/uL PT (9.0-12.0) sec INR (<1.2) APTT (22.0-30.0) sec D-Dimer (<0.60) mg/L FEU Sodium 135 L (137-145) mmol/L Potassium 5.0 (3.5-5.1) mmol/L Chloride 104 (98-107) mmol/L Carbon Dioxide 23 (22-30) mmol/L Anion Gap 8 mmol/L BUN 14 (7-17) mg/dL Creatinine 0.73 (0.52-1.04) mg/dL Est GFR (CKD-EPI)AfAm >90 (>60 ml/min/1.73 sqM) Est GFR (CKD-EPI)NonAf 89 (>60 ml/min/1.73 sqM) Glucose 200 H (74-99) mg/dL Calcium 9.5 (8.4-10.2) mg/dL Magnesium 1.6 (1.6-2.3) mg/dL Total Bilirubin 1.5 H (0.2-1.3) mg/dL AST 62 H (14-36) U/L ALT 32 (4-34) U/L Alkaline Phosphatase 61 (38-126) U/L Troponin I 2.550 H* (0.000-0.034) ng/mL Total Protein 8.0 (6.3-8.2) g/dL Albumin 4.2 (3.5-5.0) g/dL 09/02/19 Range/Units 17:50 WBC (3.8-10.6) k/uL RBC (3.80-5.40) m/uL Hgb (11.4-16.0) gm/dL Hct (34.0-46.0) % MCV (80.0-100.0) fL MCH (25.0-35.0) pg MCHC (31.0-37.0) g/dL RDW (11.5-15.5) % Plt Count (150-450) k/uL Neutrophils % % Lymphocytes % % Monocytes % % Eosinophils % % Basophils % % Neutrophils # (1.3-7.7) k/uL Lymphocytes # (1.0-4.8) k/uL Monocytes # (0-1.0) k/uL Eosinophils # (0-0.7) k/uL Basophils # (0-0.2) k/uL PT 9.8 (9.0-12.0) sec INR 0.9 (<1.2) APTT 22.3 (22.0-30.0) sec D-Dimer 0.44 (<0.60) mg/L FEU Sodium (137-145) mmol/L Potassium (3.5-5.1) mmol/L Chloride (98-107) mmol/L Carbon Dioxide (22-30) mmol/L Anion Gap mmol/L BUN (7-17) mg/dL Creatinine (0.52-1.04) mg/dL Est GFR (CKD-EPI)AfAm (>60 ml/min/1.73 sqM) Est GFR (CKD-EPI)NonAf (>60 ml/min/1.73 sqM) Glucose (74-99) mg/dL Calcium (8.4-10.2) mg/dL Magnesium (1.6-2.3) mg/dL Total Bilirubin (0.2-1.3) mg/dL AST (14-36) U/L ALT (4-34) U/L Alkaline Phosphatase (38-126) U/L Troponin I (0.000-0.034) ng/mL Total Protein (6.3-8.2) g/dL Albumin (3.5-5.0) g/dL - Radiology Data Radiology results: image reviewed ( x-ray shows no acute process) Critical Care Time Critical Care Time: Yes Total Critical Care Time: 33 Disposition Clinical Impression: Acute non-ST elevation myocardial infarction (NSTEMI) Disposition: ADMITTED IP TO THIS HOSP Is patient prescribed a controlled substance at d/c from ED?: No Referrals: Theo Fairbanks DO [Primary Care Provider] - 1-2 days Decision Time: 19:08
[2019-09-02 18:13] LABS: Basophils # (A) 0.1 k/uL (0-0.2); Basophils % (A) 1 %; Eosinophils # (A) 0.1 k/uL (0-0.7); Eosinophils % (A) 1 %; HCT 43.2 % (34.0-46.0); HGB 14.3 gm/dL (11.4-16.0); Lymphocytes # (A) 1.6 k/uL (1.0-4.8); Lymphocytes % (A) 15 %; MCH 30.1 pg (25.0-35.0); MCHC 33.2 g/dL (31.0-37.0); Monocytes # (A) 0.4 k/uL (0-1.0); Monocytes % (A) 4 %; Neutrophils # (A) 8.4 k/uL (1.3-7.7); Neutrophils % (A) 79 %; Platelet Count 255 k/uL (150-450); RBC 4.77 m/uL (3.80-5.40); RDW 12.7 % (11.5-15.5); WBC 10.8 k/uL (3.8-10.6)
[2019-09-02 18:23] LABS: ALT 32 U/L (4-34); AST 62 U/L (14-36); African American GFR (CKD) >90 (>60 ml/min/1.73 sqM); Albumin 4.2 g/dL (3.5-5.0); Alkaline Phosphatase 61 U/L (38-126); Anion Gap 8 mmol/L; Blood Urea Nitrogen 14 mg/dL (7-17); Calcium 9.5 mg/dL (8.4-10.2); Carbon Dioxide 23 mmol/L (22-30); Chloride 104 mmol/L (98-107); Glucose 200 mg/dL (74-99); Magnesium 1.6 mg/dL (1.6-2.3); Non-African American GFR(CKD) 89 (>60 ml/min/1.73 sqM); Sodium 135 mmol/L (137-145); Total Bilirubin 1.5 mg/dL (0.2-1.3)
[2019-09-02 18:24] LABS: D-Dimer 0.44 mg/L FEU (<0.60); INR 0.9 (<1.2); Partial Thromboplastin Time 22.3 sec (22.0-30.0); Prothrombin Time 9.8 sec (9.0-12.0)
[2019-09-02 18:36] LABS: MCV 90.7 fL (80.0-100.0)
--- NOTE | 2019-09-02 18:47 | XR ---
EXAMINATION TYPE: XR chest 2V DATE OF EXAM: 09/02/2019 COMPARISON: 04/16/2017 HISTORY: Short of breath TECHNIQUE: 2 views FINDINGS: Heart and mediastinum are normal. Lungs are clear. Diaphragm is normal. Bony thorax is inta ct. There are chest leads. IMPRESSION: Normal chest. No change.
[2019-09-02] MEDS ORDERED: NITROGLYCERIN SL TABS 0.4 MG TAB SUBLINGUAL PRN (19:10)
[2019-09-02] MEDS ORDERED: HEPARIN SODIUM,PORCINE 5,000 UNIT/ML 1 ML VIAL IV PRN (19:10)
[2019-09-02] MEDS ORDERED: HEPARIN SODIUM,PORCINE 5,000 UNIT/ML 1 ML VIAL IV ONE (19:10)
[2019-09-02] MEDS ORDERED: HEPARIN SOD,PORK IN 0.45% NACL 25,000 UNIT in 0.45% NACL 1 250ML.BAG IV SCH (19:15)
[2019-09-02] MEDS ORDERED: HYDROcodone/APAP 5-325MG 1 EACH TAB PO PRN (21:40)
[2019-09-02] MEDS: METOPROLOL TARTRATE 50 MG TAB PO SCH (22:05)
[2019-09-02] MEDS: ACETAMINOPHEN TAB 325 MG TAB PO PRN (22:06)
[2019-09-02 22:11] LABS: Glucose,Whole Blood 111 mg/dL (75-99)
[2019-09-02] MEDS: NITROGLYCERIN OINT 1 INCH/GM PACKET TOPICAL SCH (23:03)
[2019-09-02] MEDS ORDERED: hydrALAZINE HCL 25 MG TAB PO PRN (23:22)
[2019-09-02] MEDS: amLODIPine 5 MG TAB PO SCH (23:29)
[2019-09-03 06:25] LABS: Glucose,Whole Blood 135 mg/dL (75-99)
[2019-09-03] MEDS: ACETAMINOPHEN TAB 325 MG TAB PO PRN ×2 (06:25→15:26)
[2019-09-03] MEDS: NITROGLYCERIN OINT 1 INCH/GM PACKET TOPICAL SCH (06:25)
[2019-09-03] MEDS: INSULIN ASPART (NovoLOG) 100 UNIT/ML VIAL SQ SCH ×4 (06:26→22:16)
[2019-09-03 06:48] LABS: Mean Platelet Volume 8.1; Platelet Count 268 k/uL (150-450)
[2019-09-03 07:18] LABS: Cholesterol 204 mg/dL (<200); HDL Cholesterol 50 mg/dL (40-60); LDL Cholesterol,Calculated 116 mg/dL (0-99); Triglycerides 189 mg/dL (<150)
[2019-09-03] MEDS: METOPROLOL TARTRATE 50 MG TAB PO SCH ×2 (08:43→20:06)
[2019-09-03] MEDS: ASPIRIN 81 MG PO SCH (08:43)
[2019-09-03] MEDS: amLODIPine 5 MG TAB PO SCH (08:44)
[2019-09-03] MEDS ORDERED: ATORVASTATIN 80 MG TAB PO STA (08:46)
[2019-09-03] MEDS ORDERED: ALPRAZolam 0.5 MG TAB PO PRN (08:46)
[2019-09-03] MEDS ORDERED: ASPIRIN 325 MG TAB PO STA (08:46)
[2019-09-03] MEDS ORDERED: NITROGLYCERIN SL TABS 0.4 MG TAB SUBLINGUAL PRN ×2 (08:46→11:23)
[2019-09-03] MEDS ORDERED: ALPRAZolam 0.25 MG TAB PO PRN (08:46)
[2019-09-03] MEDS ORDERED: SODIUM CHLORIDE 0.9% 1,000 ML in EMPTY BAG 1 BAG IV ONE (08:46)
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
[2019-09-03] MEDS ORDERED: ASPIRIN 325 MG TAB PO SCH (09:00)
[2019-09-03] MEDS ORDERED: MIDAZOLAM 2 MG/2 ML VIAL IV ONE (10:22)
[2019-09-03] MEDS ORDERED: LIDOCAINE 1% INJ 10MG/ML (20 ML MDV) SQ ONE (10:26)
[2019-09-03] MEDS ORDERED: IV FLUID CONTINUATION 1,000 ML IV ONE (10:27)
[2019-09-03] MEDS: VERAPAMIL SYRINGE (5 MG/10 ML) INTRAARTER ONE ×2 (10:29→11:14)
[2019-09-03] MEDS ORDERED: IOPAMIDOL-370 100ML BTL INJ ONE (11:01)
[2019-09-03] MEDS ORDERED: HYDROmorphone 1 MG/ML 1 ML SYRINGE IVP ONE (11:06)
[2019-09-03] MEDS ORDERED: NITROGLYCERIN 1000MCG/10ML SYRINGE INTRACORON ONE (11:08)
[2019-09-03] MEDS ORDERED: TICAGRELOR 90 MG TAB PO ONE (11:14)
[2019-09-03] MEDS ORDERED: IOPAMIDOL-300 100ML BTL INJ ONE (11:14)
[2019-09-03] MEDS ORDERED: ATROPINE SULFATE 0.1 MG/ML 10ML SYRINGE IV PRN (11:23)
[2019-09-03] MEDS ORDERED: RX INFO: IV CONTRAST WAS GIVEN 1 EACH MISC MISCELLANE PRN (11:23)
[2019-09-03] MEDS ORDERED: MAG HYDROX/AL HYDROX/SIMETH 30 ML CUP PO PRN (11:23)
[2019-09-03] MEDS ORDERED: ZOLPIDEM 5 MG TAB PO PRN (11:23)
[2019-09-03 11:44] LABS: Glucose,Whole Blood 122 mg/dL (75-99)
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
--- NOTE | 2019-09-03 12:24 | ECHOF ---
Referral Reason:nstemi MEASUREMENTS -------- HEIGHT: 157.5 cm WEIGHT: 94.3 kg BP: RVIDd: 2.8 cm (< 3.3) IVSd: 1.3 cm (0.6 - 1.1) LVIDd: 3.6 cm (3.9 - 5.3) LVPWd: 1.5 cm (0.6 - 1.1) IVSs: 1.6 cm LVIDs: 2.7 cm LVPWs: 1.7 cm LAESV Index (A-L): 24.08 ml/m Ao Diam: 2.9 cm (2.0 - 3.7) AV Cusp: 1.9 cm (1.5 - 2.6) LA Diam: 3.6 cm (2.7 - 3.8) MV EXCURSION: 20.130 mm (> 18.000) MV EF SLOPE: 62 mm/s (70 - 150) EPSS: 0.3 cm MV E Radhames: 0.49 m/s MV DecT: 172 ms MV A Radhames: 0.87 m/s MV E/A Ratio: 0.57 RAP: 5.00 mmHg RVSP: 13.09 mmHg FINDINGS -------- Sinus rhythm. This was a technically good study. The left ventricular size is normal. There is moderate concentric left ventricular hypertrophy. O verall left ventricular systolic function is normal with, an EF between 55 - 60 %. The diastolic fi lling pattern is normal for the age of the patient 10.82. The right ventricle is normal in size. The left atrial size is normal. Normal LA size by volume 22+/-6 ml/m2. The right atrial size is normal. The aortic valve is trileaflet and appears structurally normal. The mitral valve is normal. The mitral valve leaflets are mildly thickened. There is trace mitral regurgitation. The tricuspid valve appears structurally normal. Trace tricuspid regurgitation present. The right ventricular systolic pressure, as measured by Doppler, is 13.09mmHg. There is no pulmonic regurgitation present. The aortic root size is normal. Normal inferior vena cava with normal inspiratory collapse consistent with estimated right atrial pre ssure of 5 mmHg. There is no pericardial effusion. CONCLUSIONS -------- 1. Sinus rhythm. 2. This was a technically good study. 3. The left ventricular size is normal. 4. There is moderate concentric left ventricular hypertrophy. 5. Overall left ventricular systolic function is normal with, an EF between 55 - 60 %. 6. The diastolic filling pattern is normal for the age of the patient 10.82 7. The right ventricle is normal in size. 8. The left atrial size is normal. 9. Normal LA size by volume 22+/-6 ml/m2. 10. The right atrial size is normal. 11. The aortic valve is trileaflet and appears structurally normal. 12. The mitral valve is normal. 13. The mitral valve leaflets are mildly thickened. 14. There is trace mitral regurgitation. 15. The tricuspid valve appears structurally normal. 16. Trace tricuspid regurgitation present. 17. The right ventricular systolic pressure, as measured by Doppler, is 13.09mmHg. 18. There is no pulmonic regurgitation present. 19. The aortic root size is normal. 20. Normal inferior vena cava with normal inspiratory collapse consistent with estimated right atrial pressure of 5 mmHg. 21. There is no pericardial effusion. MANAGER INSTRUMENTATION: Eloisa Renteria RDCS
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
[2019-09-03 14:00] VITALS: BMI 37.6
[2019-09-03 16:07] LABS: Hemoglobin A1C 6.4 % (4.0-6.0)
[2019-09-03 16:49] LABS: Glucose,Whole Blood 121 mg/dL (75-99)
[2019-09-03] MEDS: LOSARTAN 50 MG TAB PO SCH (20:05)
[2019-09-03 20:58] LABS: Glucose,Whole Blood 142 mg/dL (75-99)
[2019-09-03] MEDS: SODIUM CHLORIDE 0.9% 1,000 ML IV SCH (21:22)
[2019-09-04] MEDS: SODIUM CHLORIDE 0.9% 1,000 ML IV SCH (03:33)
[2019-09-04] MEDS: ACETAMINOPHEN TAB 325 MG TAB PO PRN (06:26)
[2019-09-04 06:28] LABS: Basophils % (A) 0 %; Eosinophils # (A) 0.1 k/uL (0-0.7); Eosinophils % (A) 1 %; HCT 44.3 % (34.0-46.0); HGB 14.8 gm/dL (11.4-16.0); Lymphocytes # (A) 2.2 k/uL (1.0-4.8); Lymphocytes % (A) 21 %; MCH 30.3 pg (25.0-35.0); MCHC 33.4 g/dL (31.0-37.0); MCV 90.9 fL (80.0-100.0); Mean Platelet Volume 7.9; Monocytes # (A) 0.5 k/uL (0-1.0); Monocytes % (A) 5 %; Neutrophils # (A) 7.4 k/uL (1.3-7.7); Neutrophils % (A) 71 %; Platelet Count 281 k/uL (150-450); RBC 4.88 m/uL (3.80-5.40); RDW 12.9 % (11.5-15.5); WBC 10.3 k/uL (3.8-10.6)
[2019-09-04 06:40] LABS: African American GFR (CKD) >90 (>60 ml/min/1.73 sqM); Anion Gap 11 mmol/L; Blood Urea Nitrogen 10 mg/dL (7-17); Calcium 9.9 mg/dL (8.4-10.2); Carbon Dioxide 23 mmol/L (22-30); Chloride 104 mmol/L (98-107); Glucose 129 mg/dL (74-99); Non-African American GFR(CKD) >90 (>60 ml/min/1.73 sqM); Potassium 4.4 mmol/L (3.5-5.1); Sodium 138 mmol/L (137-145)
[2019-09-04 06:55] LABS: Glucose,Whole Blood 136 mg/dL (75-99)
[2019-09-04] MEDS: INSULIN ASPART (NovoLOG) 100 UNIT/ML VIAL SQ SCH ×2 (07:02→11:51)
[2019-09-04 07:10] VITALS: RESP 18
[2019-09-04] MEDS: LOSARTAN 50 MG TAB PO SCH (08:09)
[2019-09-04] MEDS: ASPIRIN 81 MG PO SCH (08:09)
[2019-09-04] MEDS: METOPROLOL TARTRATE 50 MG TAB PO SCH (08:09)
[2019-09-04] MEDS ORDERED: TICAGRELOR 90 MG TAB PO SCH (09:00)
[2019-09-04 11:41] LABS: Glucose,Whole Blood 123 mg/dL (75-99)
[2019-09-04 12:21] VITALS: BP 158/78; PULSE 70; TEMP 97.3
--- NOTE | 2019-09-04 12:53 | PN ---
PROGRESS NOTE Mrs. Rodriguez is status post non-ST elevation ME involving the LAD distribution. She underwent stenting of mid LAD with a drug-eluting stent. This was performed from right radial approach. She is doing very well. Vitals are stable. No JVD. S1, S2 heard normally. Lungs are clear. Abdomen and lower extremity exam unchanged. Right radial cath site is clean and dry with a good pulse. I am going to increase activity and discharge her this afternoon. Advised not to do any strenuous activity. We will see her in the office next week. I gave her discharge instructions regarding activity, diet, medications, and spoke to the patient and . She can be discharged today. MMODL / IJN: [id number] /
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
[2019-09-04] MEDS ORDERED: ATORVASTATIN 80 MG TAB PO SCH (21:00)
[2019-09-05] MEDS ORDERED: metFORMIN 500 MG TAB PO SCH (12:30)
[2019-09-07] MEDS ORDERED: ERGOCALCIFEROL 50,000 UNIT CAP PO SCH (09:00)
[2019-09-07] MEDS ORDERED: NON FORMULARY DRUG (Dulaglutide [Trulicity] 0.75 MG) SQ SCH (09:00)
== END 2019-09-04 14:00 | disposition home or self-care (01) | DRG 247 ==
LOC: EC 17:19 → 3SCARD 19:10
PROVIDERS: ADMIT Internal Medicine; ATTEND Internal Medicine
PROC: 027034Z Dilation of Coronary Artery, One Artery with Drug-eluting Intraluminal Device, Percutaneous Approach (ICD-10-PCS; principal; 2019-09-03 09:20)
PROC: B2111ZZ Fluoroscopy of Multiple Coronary Arteries using Low Osmolar Contrast (ICD-10-PCS; principal; 2019-09-03 09:20)
PROC: 4A023N7 Measurement of Cardiac Sampling and Pressure, Left Heart, Percutaneous Approach (ICD-10-PCS; principal; 2019-09-03 09:20)
DX: I21.4 Non-ST elevation (NSTEMI) myocardial infarction (principal); E11.9 Type 2 diabetes mellitus without complications; E78.5 Hyperlipidemia, unspecified; F41.9 Anxiety disorder, unspecified; I10 Essential (primary) hypertension; K21.9 Gastro-esophageal reflux disease without esophagitis; Z79.4 Long term (current) use of insulin; Z79.82 Long term (current) use of aspirin; Z79.899 Other long term (current) drug therapy; Z82.49 Family history of ischemic heart disease and other diseases of the circulatory system; Z83.3 Family history of diabetes mellitus; Z90.710 Acquired absence of both cervix and uterus
CPT/HCPCS: 36415; 71046; 80048; 80053; 80061; 83036; 83735; 84484; 85025; 85049; 85347; 85379; 85610; 85730; 93005; 93306; 93458; 93571; 96365; 96376; 99291; C1874

== ENCOUNTER 2019-11-06 09:34 | Day surgery (SDC) | payer MEDICAID ==
[2019-11-06] MEDS ORDERED: LIDOCAINE 1% INJ 10MG/ML (20 ML MDV) ONE (09:40)
[2019-11-06] MEDS ORDERED: VERAPAMIL 2.5 MG/ML 2 ML AMP ONE (09:40)
[2019-11-06] MEDS ORDERED: SODIUM CHLORIDE 0.9% 1,000 ML IV ONE (09:45)
[2019-11-06] MEDS ORDERED: ASPIRIN 81 MG ONE (09:47)
[2019-11-06 09:49] LABS: Glucose,Whole Blood 127 mg/dL (75-99)
[2019-11-06] MEDS ORDERED: NITROGLYCERIN SL TABS 0.4 MG TAB SUBLINGUAL PRN (09:57)
[2019-11-06] MEDS ORDERED: ALPRAZolam 0.25 MG TAB PO PRN (09:57)
[2019-11-06] MEDS ORDERED: ASPIRIN 325 MG TAB PO STA (09:57)
[2019-11-06] MEDS ORDERED: SODIUM CHLORIDE 0.9% 1,000 ML in EMPTY BAG 1 BAG IV ONE (09:57)
[2019-11-06] MEDS ORDERED: ALPRAZolam 0.5 MG TAB PO PRN (09:57)
[2019-11-06 10:05] LABS: Basophils # (A) 0.1 k/uL (0-0.2); Basophils % (A) 1 %; Eosinophils # (A) 0.1 k/uL (0-0.7); Eosinophils % (A) 1 %; HCT 46.1 % (34.0-46.0); HGB 15.2 gm/dL (11.4-16.0); Lymphocytes # (A) 2.5 k/uL (1.0-4.8); Lymphocytes % (A) 26 %; MCH 30.4 pg (25.0-35.0); MCHC 33.1 g/dL (31.0-37.0); MCV 91.8 fL (80.0-100.0); Mean Platelet Volume 8.3; Monocytes # (A) 0.6 k/uL (0-1.0); Monocytes % (A) 6 %; Neutrophils # (A) 6.2 k/uL (1.3-7.7); Neutrophils % (A) 65 %; Platelet Count 324 k/uL (150-450); RBC 5.02 m/uL (3.80-5.40); RDW 13.2 % (11.5-15.5); WBC 9.6 k/uL (3.8-10.6)
[2019-11-06] MEDS ORDERED: LIDOCAINE 1% INJ 10MG/ML (20 ML MDV) SQ ONE (10:21)
[2019-11-06] MEDS: MIDAZOLAM 2 MG/2 ML VIAL IV ONE ×2 (10:21→10:26)
[2019-11-06 10:23] LABS: African American GFR (CKD) >90 (>60 ml/min/1.73 sqM); Anion Gap 8 mmol/L; Blood Urea Nitrogen 16 mg/dL (7-17); Calcium 10.1 mg/dL (8.4-10.2); Carbon Dioxide 27 mmol/L (22-30); Chloride 102 mmol/L (98-107); Glucose 131 mg/dL (74-99); Non-African American GFR(CKD) >90 (>60 ml/min/1.73 sqM); Potassium 4.5 mmol/L (3.5-5.1); Sodium 137 mmol/L (137-145)
[2019-11-06] MEDS ORDERED: HEPARIN SODIUM 1,000 UN/ML (10ML VL) ONE (10:24)
[2019-11-06] MEDS: VERAPAMIL SYRINGE (5 MG/10 ML) INTRAARTER ONE ×2 (10:26→10:35)
[2019-11-06] MEDS ORDERED: HEPARIN SODIUM 1,000 UN/ML (10ML VL) IV ONE (10:26)
[2019-11-06] MEDS ORDERED: SODIUM CHLORIDE 0.9% 1,000 ML IV SCH (10:45)
[2019-11-06] MEDS ORDERED: IOPAMIDOL-370 100ML BTL INJ ONE (10:50)
--- NOTE | 2019-11-06 11:33 | CC ---
CARDIAC CATHETERIZATION REPORT DATE OF SERVICE: 11/06/2019 PROCEDURE: Left heart catheterization and coronary angiography. PERFORMED BY: Dr. Moraima Yoo. Moderate conscious sedation time was 17 minutes. CLINICAL INFORMATION: Mr. 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 On September 03 because of non-ST elevation IA, she underwent a cardiac cath and PCI of mid LAD with a drug-eluting stent. She came into the office after making an appointment yesterday because of symptoms strongly suggestive of unstable angina with exertional chest pressure radiating to the left upper extremity. Her EKG did not reveal acute changes. She was advised coronary angiography after due discussion regarding risks, benefits, and options. PROCEDURE NOTE: Under local anesthesia and strict aseptic precautions, a 6-Tamazight introducer was placed in the right radial artery. Using a JL3.5 and JR4 catheters I performed coronary angiography and the same right [place] catheter was used to check LV pressures. LV gram was not performed. The sheath was taken out and TR band applied as per protocol. Saturation in the fingers of the right hand was 95%. Patient tolerated the procedure well without complication. Results were discussed with her. She has no significant disease. We will continue medical therapy and she will be discharged later on today. There was no family members available. She will talk to her and advise that I did not need to call him. CARDIAC CATHETERIZATION FINDINGS: Left ventricular end-diastolic pressure was 3 to 4 mmHg without any gradient across aortic valve. CORONARY ANGIOGRAPHY FINDINGS: RIGHT CORONARY ARTERY: Large dominant disease-free vessel that bifurcates into a large PDA and PLV. This vessel has minor irregularities. No significant disease. LEFT MAIN CORONARY ARTERY: This is a short patent disease-free vessel that bifurcates into LAD and circumflex. No significant disease in the left main. LEFT ANTERIOR DESCENDING CORONARY ARTERY: This is a good caliber vessel, which was stented in the midportion about 2 months ago. The LAD is widely patent and the stented segment looks widely patent without any significant disease. The vessel runs all the way to the apex, supplies a sizable amount of myocardium. No significant disease in LAD and the mid segment that was stented is widely patent. LEFT POSTERIOR CIRCUMFLEX CORONARY ARTERY: Nondominant vessel gives off a single obtuse marginal that runs laterally and then in the AV groove has minor irregularities. No significant disease. FINAL IMPRESSION: This patient has widely patent mid left anterior descending artery at the site of stenting. She has a right dominant system. No significant disease in the RCA or circumflex. Left ventricular filling pressures are low. No gradient across the aortic valve. RECOMMENDATIONS: Findings were discussed with the patient. She will be discharged later on today. We will continue medical therapy and she will follow up with me on Saturday. Advised not to return to work until I see her in the office. MMODL / IJN: [id number] /
[2019-11-06 12:50] VITALS: RESP 16
[2019-11-06 15:30] VITALS: BP 141/73; PULSE 61
== END 2019-11-06 17:05 | disposition home or self-care (01) ==
LOC: CATHCVL 09:34
PROVIDERS: ATTEND Internal Medicine Interventional Cardiology
DX: I25.110 Atherosclerotic heart disease of native coronary artery with unstable angina pectoris (principal); I25.2 Old myocardial infarction; I10 Essential (primary) hypertension; E11.9 Type 2 diabetes mellitus without complications; E78.2 Mixed hyperlipidemia; Z95.5 Presence of coronary angioplasty implant and graft; Z79.82 Long term (current) use of aspirin; Z79.84 Long term (current) use of oral hypoglycemic drugs; Z79.02 Long term (current) use of antithrombotics/antiplatelets; Z79.899 Other long term (current) drug therapy; Z88.0 Allergy status to penicillin; Z82.49 Family history of ischemic heart disease and other diseases of the circulatory system
CPT/HCPCS: 93458; 80048; 85025; C1769; C1894; J2250; J2001; J1644; Q9967

== ENCOUNTER → 2019-12-14 | Outpatient (CLI) | payer MEDICAID ==
[2019-12-14 15:45] LABS: African American GFR (CKD) 91.6 (60.0-200.0); Albumin 4.4 g/dL (3.80-4.90); Albumin/Globulin Ratio 1.63 (1.60-3.17); Anion Gap 11.7 mmol/L (4.00-12.00); Carbon Dioxide 28.3 mmol/L (21.6-31.8); Globulin 2.7 g/dL (1.6-3.3); Magnesium 1.8 mg/dL (1.5-2.4); Potassium 4.2 mmol/L (3.5-5.5); Total Bilirubin 0.6 mg/dL (0.3-1.2); Total Protein 7.1 g/dL (6.2-8.2)
== END | disposition home or self-care (01) ==
LOC: LABWHC1 09:55
PROVIDERS: ATTEND Nurse Practitioner
DX: I10 Essential (primary) hypertension (principal)
CPT/HCPCS: 36415; 80053; 83735

== ENCOUNTER → 2020-02-05 | Outpatient (CLI) | payer MEDICAID ==
[~2020-02-05] MED LIST: REGADENOSON 0.4 MG/5 ML SYRINGE IV ONE
--- NOTE | 2020-02-05 12:17 | NM ---
"EXAMINATION TYPE: NM stress lexiscan cardiolite DATE OF EXAM: 02/05/2020 COMPARISON: NONE HISTORY: Chest pain TECHNIQUE: After the intravenous administration of 9.9 mCi Tc 99m Sestamibi - Cardiolite resting SPE CT images acquired 75 minutes post injection. The patient received 0.4mg Lexiscan, 25.7 mCi Tc 99m Sestamibi - Stress images obtained [address] injection FINDINGS: Review of stress and rest SPECT images demonstrates decreased radio pharmaceutical uptake along the a nterior wall left ventricle towards the apex extending to the septum on stress as compared to rest im ages. Gated analysis shows normal wall motion with an estimated left ventricular ejection fraction o f 56 %. IMPRESSION: Pharmacologically induced left ventricular myocardial ischemia. A Yellow level critical message alert has been initiated for Kendrick Higgins MD via the [employer] 0 | Critical Results System on 02/05/2020 12:14 PM. This message alert has been sent to Kendrick Higgins MD via the preferences provided by the clinician for the receipt of Radiology Critical Findings. Dc ssage ID [id number]. A Yellow level critical message alert has been initiated for Michelle Velasco MD via the [employer] 360 | Critical Results System on 02/05/2020 12:14 PM. This message alert has been sent to Michelle dodson MD via the preferences provided by the clinician for the receipt of Radiology Critical Fi ndings. Message ID [id number]."
--- NOTE | 2020-02-05 13:23 | P.STRESS ---
- Stress Test Note Stress Test Results/Findings: Exam Performed: NM stress lexiscan cardiolite Exam Date: 02/05/20 Reason for Exam: CP Height: 5 ft 2 in Weight: 95 kg Protocol: LEXISCAN CARDIOLITE Stage: NA Duration of Exercise: NA Resting Heart Rate: 58 Resting Blood Pressure: 148/80 Maximum Achieved Heart Rate: 80 Maximum Achieved Blood Pressure: 148/80 85% PMHR: 133 100% PMHR: 157 METS: NA Technologist Comment: Stress Test Results/Findings: This is a 64-year-old female with history of hypertension, diabetes, family history of ischemic heart disease being evaluated for symptoms of chest pain and shortness of breath. Stress data: Baseline EKG showed sinus bradycardia. Blood pressure at rest is 148/80. Pulse rate of 58. A standard dose of Lexiscan was infused EKGs taken during the infusion did not reveal any changes of ischemia. Final impression: #1. Negative Lexiscan stress test #2. Report on the nuclear images to be given by the radiologist.
--- NOTE | 2020-02-12 12:15 | ECHOF ---
Referral Reason:i25.10 Chest pain MEASUREMENTS -------- HEIGHT: 157.5 cm WEIGHT: 94.8 kg BP: RVIDd: 3.0 cm (< 3.3) IVSd: 1.2 cm (0.6 - 1.1) LVIDd: 3.6 cm (3.9 - 5.3) LVPWd: 1.5 cm (0.6 - 1.1) IVSs: 1.8 cm LVIDs: 2.3 cm LVPWs: 2.4 cm LAESV Index (A-L): 25.78 ml/m IVSd: 0.9 cm (0.6 - 1.1) LVIDd: 5.1 cm (3.9 - 5.3) LVPWd: 1.1 cm (0.6 - 1.1) IVSs: 1.4 cm LVIDs: 2.9 cm LVPWs: 1.9 cm EDV(Teich): 126 ml ESV(Teich): 32 ml EF(Teich): 75 % %FS: 44 % SV(Teich): 94 ml Ao Diam: 2.6 cm (2.0 - 3.7) AV Cusp: 1.7 cm (1.5 - 2.6) LA Diam: 2.8 cm (2.7 - 3.8) MV EXCURSION: 11.800 mm (> 18.000) MV EF SLOPE: 103 mm/s (70 - 150) EPSS: 1.1 cm MV E Radhames: 0.78 m/s MV DecT: 337 ms MV A Radhames: 0.71 m/s MV E/A Ratio: 1.11 RAP: 5.00 mmHg RVSP: 15.10 mmHg FINDINGS -------- Sinus rhythm. This was a technically good study. The left ventricular size is normal. There is mild concentric left ventricular hypertrophy. Overa ll left ventricular systolic function is low-normal with, an EF between 50 - 55 %. The diastolic fi lling pattern is normal for the age of the patient 13.27. The right ventricle is normal in size. The left atrial size is normal. Normal LA size by volume 22+/-6 ml/m2. The right atrial size is normal. The aortic valve is trileaflet and appears structurally normal. The mitral valve is normal. Moderate mitral regurgitation is present. The tricuspid valve appears structurally normal. Mild tricuspid regurgitation present. Right vent ricular systolic pressure is normal at < 35 mmHg. There is no pulmonic regurgitation present. The aortic root size is normal. Normal inferior vena cava with normal inspiratory collapse consistent with estimated right atrial pre ssure of 5 mmHg. There is no pericardial effusion. CONCLUSIONS -------- 1. Sinus rhythm. 2. This was a technically good study. 3. The left ventricular size is normal. 4. There is mild concentric left ventricular hypertrophy. 5. Overall left ventricular systolic function is low-normal with, an EF between 50 - 55 %. 6. The diastolic filling pattern is normal for the age of the patient 13.27 7. The right ventricle is normal in size. 8. The left atrial size is normal. 9. Normal LA size by volume 22+/-6 ml/m2. 10. The right atrial size is normal. 11. The aortic valve is trileaflet and appears structurally normal. 12. The mitral valve is normal. 13. Moderate mitral regurgitation is present. 14. The tricuspid valve appears structurally normal. 15. Mild tricuspid regurgitation present. 16. Right ventricular systolic pressure is normal at < 35 mmHg. 17. There is no pulmonic regurgitation present. 18. The aortic root size is normal. 19. Normal inferior vena cava with normal inspiratory collapse consistent with estimated right atrial pressure of 5 mmHg. 20. There is no pericardial effusion. RN VASCULAR: Eloisa Renteria RDCS
== END | disposition home or self-care (01) ==
LOC: RADNMMAIN 07:39
PROVIDERS: ATTEND Internal Medicine Interventional Cardiology
DX: I25.9 Chronic ischemic heart disease, unspecified (principal); I25.10 Atherosclerotic heart disease of native coronary artery without angina pectoris
CPT/HCPCS: 93017; 93306; 78452; A9500; J2785

== ENCOUNTER → 2020-02-09 | Outpatient (CLI) | payer MEDICAID ==
[2020-02-09 11:49] LABS: HGB 13.5 gm/dL (11.4-16.0); MCH 32.3 pg (25.0-35.0); MCHC 33.8 g/dL (31.0-37.0); MCV 95.5 fL (80.0-100.0); Mean Platelet Volume 8.3; Platelet Count 239 k/uL (150-450); RBC 4.19 m/uL (3.80-5.40); RDW 12.4 % (11.5-15.5)
[2020-02-09 11:59] LABS: African American GFR (CKD) >90 (>60 ml/min/1.73 sqM); Anion Gap 10 mmol/L; Blood Urea Nitrogen 16 mg/dL (7-17); Carbon Dioxide 25 mmol/L (22-30); Chloride 101 mmol/L (98-107); Glucose 185 mg/dL (74-99); Non-African American GFR(CKD) >90 (>60 ml/min/1.73 sqM); Sodium 136 mmol/L (137-145)
== END | disposition home or self-care (01) ==
LOC: LABPAT 10:48
PROVIDERS: ATTEND Internal Medicine Interventional Cardiology
DX: Z01.818 Encounter for other preprocedural examination (principal); R07.9 Chest pain, unspecified; R06.02 Shortness of breath
CPT/HCPCS: 36415; 80051; 82565; 82947; 84520; 85027

== ENCOUNTER 2020-02-12 08:32 | Day surgery (SDC) | payer MEDICAID ==
[2020-02-10 15:56] VITALS: BMI 37.8
[~2020-02-12 08:32] MED LIST changes: +ALPRAZolam 0.25 MG TAB PO PRN; +ALPRAZolam 0.5 MG TAB PO PRN; +ASPIRIN 325 MG TAB PO ONE; +ATORVASTATIN 80 MG TAB PO ONE; +NITROGLYCERIN SL TABS 0.4 MG TAB SUBLINGUAL PRN; -REGADENOSON 0.4 MG/5 ML SYRINGE IV ONE; +SODIUM CHLORIDE 0.9% 1,000 ML in EMPTY BAG 1 BAG IV ONE
[2020-02-12 09:39] LABS: Glucose,Whole Blood 126 mg/dL (75-99)
[2020-02-12 09:43] VITALS: RESP 16; TEMP 97.8
[2020-02-12] MEDS ORDERED: SODIUM CHLORIDE 0.9% 1,000 ML IV ONE (09:51)
[2020-02-12] MEDS ORDERED: HEPARIN SODIUM 1,000 UN/ML (10ML VL) ONE (10:46)
[2020-02-12] MEDS ORDERED: VERAPAMIL 2.5 MG/ML 2 ML AMP ONE (10:46)
[2020-02-12] MEDS: MIDAZOLAM 2 MG/2 ML VIAL IVP ONE ×2 (11:03→11:12)
[2020-02-12] MEDS ORDERED: LIDOCAINE 1% INJ 10MG/ML (20 ML MDV) SQ ONE (11:08)
[2020-02-12] MEDS: VERAPAMIL SYRINGE (5 MG/10 ML) INTRAARTER ONE ×2 (11:10→11:41)
[2020-02-12] MEDS ORDERED: HEPARIN SODIUM 1,000 UN/ML (10ML VL) IV ONE (11:12)
[2020-02-12] MEDS ORDERED: BIVALIRUDIN BOLUS 250 MG/50 ML IV ONE (11:25)
[2020-02-12] MEDS ORDERED: BIVALIRUDIN 250 MG in SODIUM CHLORIDE 0.9% 50 ML IV ONE (11:26)
[2020-02-12] MEDS ORDERED: NITROGLYCERIN 1000MCG/10ML SYRINGE INTRACORON ONE (11:37)
[2020-02-12] MEDS ORDERED: CLOPIDOGREL 75 MG TAB ONE (11:38)
[2020-02-12] MEDS ORDERED: CLOPIDOGREL 75 MG TAB PO ONE (11:41)
[2020-02-12] MEDS ORDERED: IOPAMIDOL-370 100ML BTL INJ ONE (11:42)
[2020-02-12] MEDS ORDERED: SODIUM CHLORIDE 0.9% 1,000 ML IV SCH (11:56)
--- NOTE | 2020-02-12 17:22 | CC ---
CARDIAC CATHETERIZATION REPORT CARDIAC CATHETERIZATION AND PCI OF A RESTENOTIC LESION IN MID LAD: PERFORMED BY: Dr. Moraima Yoo. Moderate conscious sedation time was 34 minutes. Patient was administered Versed. Oxygen saturation, hemodynamics and EKG were monitored closely. CLINICAL INFORMATION: Mrs. Katie Rodriguez is a 64-year-old lady with a history of type 2 diabetes, obesity, hypertension, hyperlipidemia and CAD. In August of this year she had a plaque rupture in mid LAD and underwent stenting of this vessel with a 3.25 caliber 12 mm drug- eluting Xience stent. She did very well, but in October she had chest pain. A repeat cardiac cath revealed that the stent was widely patent. For the last 3 weeks she has been having symptoms of angina and a positive stress test. She was therefore advised coronary angiography after due discussion regarding the risks, benefits and options. Possibility of restenosis was discussed. PROCEDURE NOTE: Under local anesthesia and strict aseptic precautions, a 6-Pashto introducer was placed in the right radial artery. Using JL3.5 and JR4 diagnostic catheters, I performed coronary angiography and I used the same right catheter to check LV pressures. LV gram was not performed. Subsequently I noted that there was a significant stenosis involving the mid LAD just proximal to the previous stent of about 95% and also some of the narrowing involved the proximal one third of the previously placed stent. She was advised restenosis and need for PCI that was performed expeditiously in the same setting. Following the procedure, the sheath was taken out, TR band applied as per protocol. The saturation in the fingers of the right hand was 98%. CARDIAC CATHETERIZATION FINDINGS: The left ventricular end-diastolic pressure was about 6 mmHg without any gradient across the aortic valve. CORONARY ANGIOGRAPHY FINDINGS: RIGHT CORONARY ARTERY: The right coronary artery is a large dominant vessel. No significant disease. Distally it bifurcates into PDA and PLV, both of which supply a sizable amount of myocardium. No significant disease in the dominant RCA. LEFT MAIN CORONARY ARTERY: Short, patent, disease-free vessel that bifurcates into LAD and circumflex. LEFT ANTERIOR DESCENDING CORONARY ARTERY: This is a good-caliber vessel that gives off a high diagonal branch proximally. After the diagonal branch there is a 95% stenosis just before the previously placed stent and the stenosis also involves the proximal one third of the stent. From the stented segment comes off a septal branch. Beyond this the caliber is good. Vessel runs all the way to the apex, supplying a sizable amount of myocardium. There is therefore a de Truong stenosis of about 95% before the stent and also involves the proximal portion of the stent. This is probably the culprit lesion. The first diagonal before the stent is widely patent and the septal branch has brisk flow and rest of LAD has minor irregularities. LEFT POSTERIOR CIRCUMFLEX CORONARY ARTERY: Technically a nondominant vessel, gives off a single obtuse marginal that runs laterally, has 2 branches, and also an AV groove branch. No significant disease. LEFT VENTRICULOGRAM: Not performed. FINAL IMPRESSION: This patient has a restenotic lesion in the mid LAD of about 95%. The dominant RCA and circumflex are free of significant disease. Filling pressures are normal. No gradient across the aortic valve. RECOMMENDATIONS: I recommended PCI of restenotic LAD lesion and proceeded to perform this in the same setting. PCI PROCEDURE DETAILS: The patient was already on Plavix. I gave her an Angiomax bolus and drip as per protocol. She received additional 300 mg of Plavix. I used a run-through wire to cross the lesion. A 2.5, 12 NC Trek balloon was used to pre-dilate the lesion. I then deployed a 3.25 caliber 12 mm long Xience stent and telescoped one third of this stent into the previous stent and the rest was kept proximally. The patient had chest pain and anterior ST elevation. Excellent angiographic result was achieved without complication. The sheath was then taken out and TR band applied as per protocol. Excellent angiographic result without complication was achieved. Results were discussed with the patient as well as her . I expect she will be discharged later on today if she remains stable. I will see her in the office on Saturday at 3:30 p.m. She will be on the same medications. Advised to call if she has a question, concern or problem. MMODL / IJN: [id number] / STACY
[2020-02-12 18:13] VITALS: BP 130/62; PULSE 58
== END 2020-02-12 18:27 | disposition home or self-care (01) ==
LOC: CATHCVL 08:32
PROVIDERS: ATTEND Internal Medicine Interventional Cardiology
DX: I25.110 Atherosclerotic heart disease of native coronary artery with unstable angina pectoris (principal); T82.855A Stenosis of coronary artery stent, initial encounter; I10 Essential (primary) hypertension; E11.9 Type 2 diabetes mellitus without complications; E78.2 Mixed hyperlipidemia; E66.9 Obesity, unspecified; Z95.5 Presence of coronary angioplasty implant and graft; Z88.0 Allergy status to penicillin; Z82.49 Family history of ischemic heart disease and other diseases of the circulatory system; Z79.82 Long term (current) use of aspirin; Z79.899 Other long term (current) drug therapy; Z79.02 Long term (current) use of antithrombotics/antiplatelets; Z68.38 Body mass index [BMI] 38.0-38.9, adult
CPT/HCPCS: 93458; C9600; C1887; C1725; C1769 ×2; C1874; C1894; J2250; J2001; J1644; J0583; Q9967

== ENCOUNTER → 2020-05-13 | Outpatient (CLI) | payer OTHER ==
--- NOTE | 2020-05-13 14:47 | XR ---
EXAMINATION TYPE: XR chest 2V, XR ribs LT DATE OF EXAM: 05/13/2020 CLINICAL HISTORY: Pain from fall 2 weeks ago TECHNIQUE: Frontal and lateral views of the chest are obtained. 4 views of the left ribs are obtaine d. COMPARISON: None FINDINGS: The cardiomediastinal silhouette is within normal limits for size. Pulmonary vasculature i s normal. There is no focal air space opacity, pleural effusion, or pneumothorax seen. Degenerative c hanges of the spine. No displaced rib fractures seen. IMPRESSION: No acute cardiopulmonary process. No displaced rib fractures seen.
== END | disposition home or self-care (01) ==
LOC: RADXRMAIN 13:27
PROVIDERS: ATTEND Emergency Medicine
DX: S22.32XA Fracture of one rib, left side, initial encounter for closed fracture (principal)
CPT/HCPCS: 71046

== ENCOUNTER → 2020-09-07 | Outpatient (CLI) | payer MEDICAID ==
[~2020-09-07] MED LIST changes: -ALPRAZolam 0.25 MG TAB PO PRN; -ALPRAZolam 0.5 MG TAB PO PRN; -ASPIRIN 325 MG TAB PO ONE; -ATORVASTATIN 80 MG TAB PO ONE; -NITROGLYCERIN SL TABS 0.4 MG TAB SUBLINGUAL PRN; +REGADENOSON 0.4 MG/5 ML SYRINGE IV PRN; -SODIUM CHLORIDE 0.9% 1,000 ML in EMPTY BAG 1 BAG IV ONE
--- NOTE | 2020-09-07 10:46 | EST ---
EXERCISE STRESS AGE: 64 SEX: Female HT: 62" WT: 213 pounds PROTOCOL: Lexiscan Cardiolite STAGE: DURATION OF EXERCISE: HEART RATE REST: 60 BLOOD PRESSURE REST: 144/75 MAXIMUM HEART RATE ACHIEVED: 81 MAXIMUM BLOOD PRESSURE: 149/70 85% MPHR: 133 100% MPHR: 157 METS: INDICATIONS: CLINICAL INFORMATION: Baseline rhythm is a sinus mechanism, rate of 60, normal axis and intervals, normal electrocardiogram. Baseline blood pressure 144/75 mmHg. Patient received injection of Lexiscan. Electrocardiograph monitoring revealed no evidence of diagnostic ischemic ST deviation. Cardiolite was injected per protocol. CONCLUSION: 1. Nondiagnostic electrocardiograph stress testing. 2. Nuclear images will be reported separately. MMODL / IJN: [id number] /
--- NOTE | 2020-09-07 13:36 | NM ---
EXAMINATION TYPE: NM stress lexiscan cardiolite DATE OF EXAM: 09/07/2020 COMPARISON: Prior myocardial SPECT 02/05/2020 HISTORY: I 25.10, coronary artery disease TECHNIQUE: After the intravenous administration of 9.79 mCi Tc 99m Sestamibi - Cardiolite resting SP ECT images acquired 45 minutes post injection. The patient received 0.4mg Lexiscan, 25.3 mCi Tc 99m Sestamibi - Stress images obtained [address] injection FINDINGS: Review of stress and rest SPECT images demonstrates no distinct perfusion abnormality. Gated analysi s shows normal wall motion with an estimated left ventricular ejection fraction of 61 %. IMPRESSION: No scintigraphic evidence for reversible ischemia.
== END | disposition home or self-care (01) ==
LOC: RADNMMAIN 07:18
PROVIDERS: ATTEND Internal Medicine Interventional Cardiology
DX: I25.10 Atherosclerotic heart disease of native coronary artery without angina pectoris (principal)
CPT/HCPCS: 93017; 78452; A9500; J2785

== ENCOUNTER → 2021-09-15 | Outpatient (CLI) | payer MEDICAID ==
--- NOTE | 2021-09-18 11:01 | MM ---
Reason for exam: screening (asymptomatic). Last mammogram was performed 3 years and 3 months ago. History: Patient is postmenopausal. Physical Findings: A clinical breast exam by your physician is recommended on an annual basis and results should be correlated with mammographic findings. MG 3D Screening Mammo W/Cad Bilateral CC and MLO view(s) were taken. Prior study comparison: June 18, 2018, bilateral MG 3d screening mammo w/cad. June 17, 2017, bilateral MG 3d screening mammo w/cad. There are scattered fibroglandular densities. There is chronic nodularity in the left breast. No significant changes when compared with prior studies. ASSESSMENT: Benign, BI-RAD 2 RECOMMENDATION: Routine screening mammogram of both breasts in 1 year.
== END | disposition home or self-care (01) ==
LOC: RADMAMWWP 15:35
PROVIDERS: ATTEND Family Medicine
DX: Z12.31 Encounter for screening mammogram for malignant neoplasm of breast (principal); Z78.0 Asymptomatic menopausal state
CPT/HCPCS: 77063; 77067

== ENCOUNTER → 2021-10-18 | Outpatient (CLI) | payer MEDICAID ==
[~2021-10-18] MED LIST changes: +DOBUTamine DRIP for NUC MED 500 MG in DEXTROSE/WATER 1 250ML.BAG IV PRN; -REGADENOSON 0.4 MG/5 ML SYRINGE IV PRN
--- NOTE | 2021-10-18 10:45 | P.STRESS ---
- Stress Test Note Stress Test Results/Findings: Exam Performed: dobutamine stress echo with con Exam Date: 10/18/21 Reason for Exam: CP Height: 5 ft 2 in Weight: 215 kg Protocol: Stage: 40 MCG Duration of Exercise: Resting Heart Rate: 69 Resting Blood Pressure: 157/82 Maximum Achieved Heart Rate: 136 Maximum Achieved Blood Pressure: 135/62 85% PMHR: 133 100% PMHR: 157 METS: Technologist Comment: Stress Test Results/Findings: This is a 65-year-old female with history of hypertension, diabetes, hypercholesterolemia and previous stent placement being evaluated for cardiac status. Because of symptoms of chest pain and shortness of breath. Stress data Baseline EKG showed sinus rhythm . Blood pressure at rest is 157/82 with a pulse rate of 69. A standard dose of dobutamine was initiated at 10 mics and was increased to 40 mics, achieving a maximum heart rate of 136 with a blood pressure 129/79. EKGs during and after the dobutamine infusion did not reveal any significant changes to suggest ischemia. Occasional PVCs with couplets and a few triplets were noted during the infusion which gradually subsided in the post excess.. Echo data: Baseline echo images show normal wall motion and thickening. The images taken at low-dose and high-dose dobutamine showed augmentation of wall motion and thickening in all segments. Final impression: #1. Negative dobutamine stress test. #2. Negative dobutamine stress echo. #3. Occasional PVCs and triplets during dobutamine infusion.
== END | disposition home or self-care (01) ==
LOC: RADNMMAIN 08:39
PROVIDERS: ATTEND Internal Medicine Interventional Cardiology
DX: I49.3 Ventricular premature depolarization (principal)
CPT/HCPCS: 93351; Q9950

== ENCOUNTER → 2022-02-21 | Outpatient (CLI) | payer MEDICAID ==
--- NOTE | 2022-02-22 04:01 | MR ---
EXAMINATION TYPE: MR knee RT wo con DATE OF EXAM: 02/21/2022 COMPARISON: None HISTORY: Knee pain Multiplanar multi echo imaging of the right knee with no contrast. There is a small knee joint effusion. The anterior and posterior cruciate ligaments are intact. There is some mild increased signal in the posterior horn of the medial meniscus consistent with a partial tear. This is seen near the free margin. This is best seen on proton density sagittal image 12. Ther e is 4 x 1 cm popliteal cyst. There is subcutaneous edema anterior to the patella. The patella is int act. No fracture seen. The collateral ligaments appear intact. There is some mild osteoarthritic narr owing of the medial joint space. IMPRESSION: There is small tears of the posterior horn of the medial meniscus. No evidence of ligamentous tear. M ild osteoarthritis in the medial joint space. There is some cartilage loss on the articular surface o f the medial femoral condyle. Knee joint effusion and popliteal cyst.
== END | disposition home or self-care (01) ==
LOC: RADMRIMAIN 18:27
PROVIDERS: ATTEND Orthopaedic Surgery
DX: M23.321 Other meniscus derangements, posterior horn of medial meniscus, right knee (principal); M25.461 Effusion, right knee; M71.21 Synovial cyst of popliteal space [Baker], right knee

== ENCOUNTER → 2022-03-01 | Outpatient (CLI) | payer MEDICAID ==
[2022-03-01 18:20] LABS: Basophils # (A) 0.04 X 10*3/uL (0.00-0.10); Basophils % (A) 0.7 %; Eosinophils % (A) 1.9 %; HCT 38.2 % (37.2-46.3); HGB 12.9 g/dL (12.0-15.0); Immature Grans, Automated 0.4 %; Lymphocytes # (A) 1.76 X 10*3/uL (0.90-5.00); MCH 30.4 pg (27.0-32.0); MCHC 33.8 g/dL (32.0-37.0); MCV 90.1 fL (80.0-97.0); Mean Platelet Volume 11.5 fL (9.5-12.2); Monocytes # (A) 0.47 X 10*3/uL (0.20-1.00); Monocytes % (A) 8.8 %; NRBC Per 100 WBC 0 /100 WBCS (0.0-0.0); Neutrophils # (A) 2.95 X 10*3/uL (1.80-7.70); Neutrophils % (A) 55.2 %; Platelet Count 251 X 10*3/uL (140-440); RBC 4.24 X 10*6/uL (4.10-5.20); RDW 12.8 % (11.5-14.5); WBC 5.34 X 10*3/uL (4.50-10.00)
== END | disposition home or self-care (01) ==
LOC: LABPAT 10:07
PROVIDERS: ATTEND Orthopaedic Surgery
DX: Z01.812 Encounter for preprocedural laboratory examination (principal); M23.91 Unspecified internal derangement of right knee
CPT/HCPCS: 36415; 85025

== ENCOUNTER 2022-03-29 10:44 | Day surgery (SDC) | payer MEDICAID ==
[2022-03-26 11:27] VITALS: BMI 39.3
--- NOTE | 2022-03-29 08:40 | HP ---
HISTORY AND PHYSICAL DATE OF SURGERY: 03/29/2022. HISTORY OF PRESENT ILLNESS: Katie Rodriguez is a 66-year-old patient seen with progressive right knee pain. We discussed options for treatment. She elected to proceed with right knee arthroscopy. Consent was obtained. PAST MEDICAL HISTORY: Rui-aawkwqt-dtaitilvc diabetes, hypertension, gastroesophageal reflux disease. PAST SURGICAL HISTORY: Appendectomy, carpal tunnel surgery, hysterectomy, cholecystectomy. MEDICATIONS: Omeprazole, Trulicity, Plavix, hydrochlorothiazide, losartan, metoprolol. ALLERGIES: Penicillin. SOCIAL HISTORY: She denies tobacco use. PHYSICAL EVALUATION OF THE RIGHT KNEE: Range of motion 0 to 130. Mild effusion. Tenderness, medial and lateral joint line. Positive medial Zainab's. Ligaments stable. Hip rotation without pain. Distal neurovascular exam is intact. RADIOGRAPHS: Right knee radiographs revealed moderate osteoarthritic changes. MRI of right knee revealed medial meniscal tear and popliteal cyst. IMPRESSION: 1. Internal derangement of right knee with medial meniscal tear. 2. Hypertension. 3. Hyperlipidemia. PLAN: Right knee arthroscopy with partial medial meniscectomy and debridement. MMODL / IJN: [id number] /
[~2022-03-29 10:44] MED LIST changes: +DEXAMETHASONE SOD PHOSPHATE 4 MG/ML 1 ML VIAL IV ONE; -DOBUTamine DRIP for NUC MED 500 MG in DEXTROSE/WATER 1 250ML.BAG IV PRN; +HYDROmorphone 0.5 MG/0.5 ML SYRINGE IVP PRN; +LACTATED RINGERS 1,000 ML IV SCH; +LIDOCAINE 1% (10MG/ML) FOR IV START INTRADERMA PRN; +ONDANSETRON 4 MG/2 ML VIAL IVP PRN
[2022-03-29 12:24] LABS: Glucose,Whole Blood 117 mg/dL (70-110)
[2022-03-29] MEDS ORDERED: LIDOCAINE 2% INJ 20 MG/ML (2 ML VIAL) ONE (13:08)
[2022-03-29] MEDS ORDERED: PROPOFOL 10 MG/ML 20 ML VIAL IV ONE (13:08)
[2022-03-29] MEDS ORDERED: MIDAZOLAM 2 MG/2 ML VIAL ONE (13:08)
[2022-03-29] MEDS ORDERED: fentaNYL (PF) 50 MCG/ML 2 ML AMP ONE (13:08)
[2022-03-29] MEDS ORDERED: KETOROLAC 15 MG/ML 1 ML VIAL ONE (13:08)
[2022-03-29] MEDS ORDERED: BUPIVACAIN-EPI 0.25%-1:200,000 30 ML VIAL INTRAARTIC ONE (13:13)
--- NOTE | 2022-03-29 13:58 | P.OP ---
Date of Procedure: 03/29/22 Preoperative Diagnosis: Internal derangement right knee Postoperative Diagnosis: 1. Tear medial and lateral meniscus right knee 2. Grade 2 chondromalacia medial femoral condyle right knee 3. Reactive synovitis medial, lateral and suprapatellar compartments right knee Procedure(s) Performed: 1. Arthroscopic partial medial and lateral meniscectomy right knee 2. Arthroscopic chondroplasty medial femoral condyle right knee 3. Arthroscopic partial synovectomy medial, lateral and suprapatellar compartments right knee Anesthesia: MASOUDA, local Surgeon: Melquiades Williamson Estimated Blood Loss (ml): 7 Pathology: none sent Condition: stable Disposition: PACU Indications for Procedure: 66-year-old patient seen with progressive right knee pain. After treatment options were discussed, she elected to proceed with arthroscopy. Operative Findings: see description of procedure Description of Procedure: Patient was taken to the operative suite. Patient underwent a general anesthetic by the department of anesthesia. Patient was given preoperative antibiotics. The right lower extremity was placed in a well-padded arthroscopic leg pike. The right leg was prepped and draped in the normal sterile orthopedic fashion. A lateral parapatellar and suprapatellar incision was made. Trochars were inserted. Arthroscopy was initiated. Suprapatellar pouch revealed diffuse thick reactive synovitis. The patellofemoral joint appeared to articulate congruently. There was grade 1 chondromalacia of the patella with no significant osteochondral tears present. The scope was guided into the medial gutter. No loose bodies or plica was identified. The scope was then guided into the medial compartment. A medial parapatellar incision was made. Trocar inserted followed by probe. There was a complex tear involving the posterior horn of the medial meniscus. There were grade 2 chondromalacia changes of the medial femoral condyle with some osteochondral flap tears present. There was some thick reactive synovitis anteriorly. I performed a partial medial meniscectomy getting down to stable meniscal tissue. I performed a chondroplasty of the medial femoral condyle getting down to stable osteochondral tissue. I performed a partial synovectomy decompressing the thick reactive synovitis anteriorly. The residual meniscus was probed and was found to be stable. The residual osteochondral surface of the medial femoral condyle was stable. There was good decompression of the synovitis. Scope and probe were then guided into the intercondylar notch. Cruciates were identified, probed and found to be stable. The scope and probe were then guided into lateral compartment. There was a radial tear mid body lateral meniscus. There were grade 1 chondromalacia changes of lateral compartment. There was some reactive synovitis anteriorly. I performed a partial lateral meniscectomy getting down to stable meniscal tissue. I performed a partial synovectomy decompressing that reactive synovitis. The residual meniscus was probed and was found to be stable. There was good decompression of the synovitis. The scope was in guided back into the suprapatellar compartment. I introduced a motorized shaver into the suprapatellar compartment. I debrided some piecemeal fragments of meniscus that I encountered. I performed a partial synovectomy. The shaver was now removed. There was good decompression of the synovitis. I now took one more look around the entire knee, no residual debris. Instruments were now removed from the joint. The joint was infiltrated with .25% Marcaine. Steri-Strips were applied to the portal sites. Sterile dressings were applied. The patient was placed into a AB hose. No tourniquet was utilized. The patient was awakened, transferred to a bed and taken to recovery stable satisfactory condition.
[2022-03-29] MEDS ORDERED: HYDROcodone/APAP 5-325MG 1 EACH TAB ONE (14:39)
[2022-03-29] MEDS ORDERED: HYDROcodone/APAP 5-325MG 1 EACH TAB PO ONE (14:41)
[2022-03-29 15:08] VITALS: BP 144/72; PULSE 66; RESP 15
== END 2022-03-29 15:15 | disposition home or self-care (01) ==
LOC: OR 10:44
PROVIDERS: ATTEND Orthopaedic Surgery
DX: S83.231A Complex tear of medial meniscus, current injury, right knee, initial encounter (principal); S83.281A Other tear of lateral meniscus, current injury, right knee, initial encounter; M94.261 Chondromalacia, right knee; M65.861 Other synovitis and tenosynovitis, right lower leg; E11.69 Type 2 diabetes mellitus with other specified complication; E78.5 Hyperlipidemia, unspecified; K21.9 Gastro-esophageal reflux disease without esophagitis; I10 Essential (primary) hypertension; I25.2 Old myocardial infarction; Z95.5 Presence of coronary angioplasty implant and graft; Z88.0 Allergy status to penicillin; Z79.82 Long term (current) use of aspirin; Z79.899 Other long term (current) drug therapy; Z79.84 Long term (current) use of oral hypoglycemic drugs; Z79.01 Long term (current) use of anticoagulants; Z80.9 Family history of malignant neoplasm, unspecified; Z82.49 Family history of ischemic heart disease and other diseases of the circulatory system; X58.XXXA Exposure to other specified factors, initial encounter
CPT/HCPCS: 29880; 29876; J2250; J1100; J0690; J2405; J3010; J1885; J2704; J2001

== ENCOUNTER → 2022-07-07 | Outpatient (CLI) | payer MEDICAID ==
[2022-07-07 12:44] LABS: Basophils # (A) 0.05 X 10*3/uL (0.00-0.10); Basophils % (A) 0.6 %; Eosinophils # (A) 0.12 X 10*3/uL (0.04-0.35); Eosinophils % (A) 1.5 %; HCT 40.5 % (37.2-46.3); HGB 13.3 g/dL (12.0-15.0); Immature Grans, Automated 0.4 %; Lymphocytes # (A) 2.37 X 10*3/uL (0.90-5.00); Lymphocytes % (A) 28.8 %; MCH 29.6 pg (27.0-32.0); MCHC 32.8 g/dL (32.0-37.0); Mean Platelet Volume 11.2 fL (9.5-12.2); Monocytes # (A) 0.77 X 10*3/uL (0.20-1.00); Monocytes % (A) 9.4 %; NRBC Per 100 WBC 0 /100 WBCS (0.0-0.0); Neutrophils # (A) 4.88 X 10*3/uL (1.80-7.70); Neutrophils % (A) 59.3 %; Platelet Count 261 X 10*3/uL (140-440); RDW 12.9 % (11.5-14.5); WBC 8.22 X 10*3/uL (4.50-10.00)
== END | disposition home or self-care (01) ==
LOC: LABPAT 08:11
PROVIDERS: ATTEND Orthopaedic Surgery
DX: Z01.812 Encounter for preprocedural laboratory examination (principal); M23.92 Unspecified internal derangement of left knee
CPT/HCPCS: 80051; 85025

== ENCOUNTER 2022-07-26 10:06 | Day surgery (SDC) | payer MEDICAID ==
[2022-07-24 16:41] VITALS: BMI 38.4
--- NOTE | 2022-07-25 19:48 | HP ---
HISTORY AND PHYSICAL DATE OF SURGERY: 07/26/2022. HISTORY OF PRESENT ILLNESS: Katie Rodriguez is a 66-year-old patient, seen with progressive left knee pain. We discussed options for treatment. She elected to proceed with left knee arthroscopy. Consent was obtained. PAST MEDICAL HISTORY: Gct-aolcyri-ztymesyqh diabetes, gastroesophageal reflux disease, and hypertension. PAST SURGICAL HISTORY: Appendectomy, cholecystectomy, carpal tunnel surgery, and hysterectomy. DAILY MEDICATIONS: 1. Omeprazole. 2. Trulicity. 3. Plavix. 4. Hydrochlorothiazide. 5. Losartan. ALLERGIES: Penicillin. SOCIAL HISTORY: She denies tobacco use. PHYSICAL EVALUATION OF THE LEFT KNEE: Her range of motion is +2 to 130 degrees. She has a mild effusion. She is tender along the medial joint line. She has a positive medial Zainab's. Ligaments are stable. Hip rotation is without pain. Distal neurovascular exam is intact. She is tender along the lateral joint line and has a positive lateral Zainab's. She does have an antalgic gait. IMAGING STUDIES: Radiographs of the left knee revealed mild osteoarthritic changes. MRI of the left knee revealed lateral meniscal tear. IMPRESSION: 1. Internal derangement of left knee with lateral meniscal tear. 2. Reh-dkccods-lcryewsxu diabetes. 3. Hypertension. PLAN: Left knee arthroscopy with partial lateral meniscectomy and debridement. MMODL / IJN: [id number] /
[~2022-07-26 10:06] MED LIST changes: -HYDROmorphone 0.5 MG/0.5 ML SYRINGE IVP PRN; -LIDOCAINE 1% (10MG/ML) FOR IV START INTRADERMA PRN; +ONDANSETRON 4 MG/2 ML VIAL IVP ONE; -ONDANSETRON 4 MG/2 ML VIAL IVP PRN
[2022-07-26 11:16] LABS: Glucose,Whole Blood 114 mg/dL (70-110)
[2022-07-26] MEDS ORDERED: LIDOCAINE 2% INJ 20 MG/ML (2 ML VIAL) ONE (11:59)
[2022-07-26] MEDS ORDERED: PROPOFOL 10 MG/ML 20 ML VIAL IV ONE (11:59)
[2022-07-26] MEDS ORDERED: SUCCINYLCHOLINE CHLORIDE 200 MG/10 ML VIAL IV ONE (11:59)
[2022-07-26] MEDS ORDERED: MIDAZOLAM 2 MG/2 ML VIAL ONE (11:59)
[2022-07-26] MEDS ORDERED: fentaNYL (PF) 50 MCG/ML 2 ML AMP ONE (11:59)
[2022-07-26] MEDS ORDERED: BUPIVACAINE (PF) 0.25% 30 ML VIAL INTRAARTIC ONE (12:24)
--- NOTE | 2022-07-26 12:48 | P.OP ---
Date of Procedure: 07/26/22 Preoperative Diagnosis: Internal derangement left knee Postoperative Diagnosis: 1. Tear medial and lateral meniscus left knee 2. Reactive synovitis medial, lateral and suprapatellar compartments left knee Procedure(s) Performed: 1. Arthroscopic partial medial and lateral meniscectomy left knee 2. Arthroscopic partial synovectomy medial, lateral and suprapatellar compartments left knee Anesthesia: GETA, local Surgeon: Melquiades Williamson Estimated Blood Loss (ml): 5 Pathology: none sent Condition: stable Disposition: PACU Indications for Procedure: 66-year-old patient seen with progressive left knee pain. After treatment options were discussed, she elected to proceed with arthroscopy. Operative Findings: See description of procedure Description of Procedure: Patient was taken to the operative suite. Patient underwent a general anesthetic by the department of anesthesia. Patient was given preoperative antibiotics. The left lower extremity was placed in a well-padded arthroscopic leg pike. The left leg was prepped and draped in the normal sterile orthopedic fashion. A lateral parapatellar and suprapatellar incision was made. Trochars were inserted. Arthroscopy was initiated. Suprapatellar pouch re vealed diffuse thick reactive synovitis. The patellofemoral joint appeared articulate congruently. There was grade 1 chondromalacia of the patella with no significant osteochondral tears present.. The scope was guided into the medial gutter. No loose bodies or plica were identified. The scope was then guided into the medial compartment. A medial parapatellar incision was made. Trocar inserted followed by probe. There was a radial tear posterior horn medial meniscus. There were some grade 1 chondromalacia changes of the medial femoral condyle. There was some thick reactive synovitis anteriorly. I performed a partial medial meniscectomy. I performed a partial synovectomy. The residual meniscus was probed and was found to be stable. There was good decompression of synovitis. Scope and probe were then guided into the intercondylar notch. Cruciates were identified, probed and found to be stable. The scope and probe were then guided into lateral compartment. There was a radial tear posterior horn lateral meniscus. There were grade 1, changes lateral compartment with no tears present. There was some thick reactive synovitis anteriorly. I performed a partial lateral meniscectomy getting down to stable meniscal tissue. I performed a partial synovectomy decompressing the reactive synovitis. The residual meniscus was probed and was found to be stable. There was good decompression of the synovitis. The scope was in guided back into the suprapatellar compartment. I introduced a motorized shaver into the suprapatellar compartment. I performed a partial synovectomy. Shaver was now removed. There was good decompression of synovitis. I took one more look around the entire knee, no residual debris. Instruments were now removed from the joint. The joint was infiltrated with .25% Marcaine. Steri-Strips were applied to the portal sites. Sterile dressings were applied. The patient was placed into a AB hose. No tourniquet was utilized. The patient was awakened, transferred to a bed and taken to recovery stable satisfactory condition.
[2022-07-26 12:52] VITALS: RESP 16; TEMP 97
[2022-07-26] MEDS ORDERED: HYDROmorphone 0.5 MG/0.5 ML SYRINGE IVP ONE (13:07)
[2022-07-26] MEDS ORDERED: HYDROcodone/APAP 5-325MG 1 EACH TAB ONE (13:54)
[2022-07-26] MEDS ORDERED: HYDROcodone/APAP 5-325MG 1 EACH TAB PO ONE (13:55)
[2022-07-26 14:16] VITALS: BP 146/63; PULSE 62
== END 2022-07-26 14:33 | disposition home or self-care (01) ==
LOC: OR 10:06
PROVIDERS: ATTEND Orthopaedic Surgery
DX: S83.282A Other tear of lateral meniscus, current injury, left knee, initial encounter (principal); S83.242A Other tear of medial meniscus, current injury, left knee, initial encounter; M65.9 Synovitis and tenosynovitis, unspecified; E11.9 Type 2 diabetes mellitus without complications; I10 Essential (primary) hypertension; K21.9 Gastro-esophageal reflux disease without esophagitis; Z88.0 Allergy status to penicillin; Z90.49 Acquired absence of other specified parts of digestive tract; Z90.710 Acquired absence of both cervix and uterus; I25.10 Atherosclerotic heart disease of native coronary artery without angina pectoris; I25.2 Old myocardial infarction; Z95.5 Presence of coronary angioplasty implant and graft; Z79.82 Long term (current) use of aspirin; Z79.899 Other long term (current) drug therapy; X58.XXXA Exposure to other specified factors, initial encounter; Z79.84 Long term (current) use of oral hypoglycemic drugs
CPT/HCPCS: 29880; J2250; J0330; J1100; J0690; J2405; J3010; J2704; J1170; J2001

== ENCOUNTER 2022-10-27 11:28 | Observation (INO) | payer MEDICAID ==
[2022-10-27] MEDS ORDERED: IPRATROPIUM-ALBUTEROL 3 ML NEB INHALATION STA (11:43)
--- NOTE | 2022-10-27 11:43 | ED ---
General Adult HPI - General Chief complaint: Shortness of Breath Stated complaint: pneumonia-worsening symptoms Time Seen by Provider: 10/27/22 11:30 Source: patient, RN notes reviewed, old records reviewed Mode of arrival: ambulatory Limitations: no limitations - History of Present Illness Initial comments: This is a 66-year-old female presents emergency Department stating that she was diagnosed with pneumonia on Saturday and was given antibiotics. Patient states she takes Zithromax every day since. Patient states the coughing and shortness of breath are getting worse. Patient states she does have some anterior chest pain but that is only when she coughs. Patient states she has had history of heart attack in 2 stents placed a few years ago. Patient denies any fever chills. Patient denies any lightheadedness or dizziness. Patient denies any palpation. Patient denies any abdominal pain patient denies nausea vomiting diarrhea. - Related Data Home Medications Medication Instructions Recorded Confirmed Aspirin EC [Ecotrin Low Dose] 81 mg PO DAILY 05/10/14 07/26/22 Metoprolol Tartrate [Lopressor] 50 mg PO BID 05/10/14 07/26/22 Omeprazole [PriLOSEC] 20 mg PO DAILY 05/10/14 07/26/22 Ergocalciferol [Vitamin D2 50,000 unit PO Q14D 08/28/19 07/26/22 (DRISDOL)] Acetaminophen [Tylenol] 650 mg PO Q12HR PRN 11/06/19 07/26/22 Clopidogrel [Plavix] 75 mg PO DAILY 02/10/20 07/26/22 hydroCHLOROthiazide [Hydrodiuril] 25 mg PO DAILY 02/10/20 07/26/22 Atorvastatin [Lipitor] 40 mg PO HS 03/26/22 07/26/22 Dulaglutide [Trulicity] 1.5 mg SQ MO 03/26/22 07/26/22 Ibuprofen [Motrin] 800 mg PO Q8H PRN 07/24/22 07/26/22 Chester-3/Dha/Epa/Fish Oil [Fish Oil 1 each PO DAILY 07/24/22 07/26/22 1,000 mg Softgel] Previous Rx's Medication Instructions Recorded Losartan [Cozaar] 100 mg PO DAILY #30 tab 09/03/19 Nitroglycerin Sl Tabs [Nitrostat] 0.4 mg SUBLINGUAL Q5M PRN #25 tab 09/03/19 HYDROcodone/APAP 5-325MG [Latty 1 tab PO Q6HR PRN #12 tab 03/29/22 5-325] HYDROcodone/APAP 5-325MG [Latty 1 tab PO Q6HR PRN 7 Days #28 tab 07/26/22 5-325] Allergies Allergy/AdvReac Type Severity Reaction Status Date / Time Penicillins Allergy Unknown Swelling Verified 07/26/22 10:57 Review of Systems ROS Statement: Those systems with pertinent positive or pertinent negative responses have been documented in the HPI. ROS Other: All systems not noted in ROS Statement are negative. 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 pneumonia Past Anesthesia/Blood Transfusion Reactions: No Reported Reaction Past Psychological History: No Psychological Hx Reported Past Alcohol Use History: None Reported - Past Family History Mother Family Medical History: Hypertension Additional Family Medical History / Comment(s): HEART PROBLEMS Father Family Medical History: Cancer Additional Family Medical History / Comment(s): heart problems General Exam - General Exam Comments Initial Comments: GENERAL: Patient is well-developed and well-nourished. Patient is nontoxic and well- hydrated and is in mild distress. ENT: Neck is soft and supple. No significant lymphadenopathy is noted. Oropharynx is clear. Moist mucous membranes. Neck has full range of motion without eliciting any pain. EYES: The sclera were anicteric and conjunctiva were pink and moist. Extraocular movements were intact and pupils were equal round and reactive to light. Eyelids were unremarkable. PULMONARY: There is subtle crackles in the right base CARDIOVASCULAR: There is a regular rate and rhythm without any murmurs gallops or rubs. ABDOMEN: Soft and nontender with normal bowel sounds. SKIN: Skin is clear with no lesions or rashes and otherwise unremarkable. NEUROLOGIC: Patient is alert and oriented x3. Cranial nerves II through XII are grossly intact. Motor and sensory are also intact. Normal speech, volume and content. Symmetrical smile. MUSCULOSKELETAL: Normal extremities with adequate strength and full range of motion. No lower extremity swelling or edema. No calf tenderness. LYMPHATICS: No significant lymphadenopathy is noted PSYCHIATRIC: Normal psychiatric evaluation. Limitations: no limitations Course Vital Signs 10/27/22 10/27/22 10/27/22 11:29 13:21 13:29 Temperature 97.8 F Pulse Rate 68 60 72 Respiratory 16 Rate Blood Pressure 171/79 O2 Sat by Pulse 94 L Oximetry Medical Decision Making - Medical Decision Making EKG was interpreted by myself. EKG shows a sinus rhythm at 65 bpm MS interval 158 QRS is 93 QT interval is 470 QTC is 419. Patient's EKG shows no ST segment elevation or depression. Was pt. sent in by a medical professional or institution (, PA, BIBLIOGRAPHIC SERVICES SPECIALIST, urgent care, hospital, or usp...) When possible be specific @ -No Did you speak to anyone other than the patient for history (EMS, parent, family, police, friend...)? What history was obtained from this source @ -No Did you review nursing and triage notes (agree or disagree)? Why? @ -I reviewed and agree with nursing and triage notes Were old charts reviewed (outside hosp., previous admission, EMS record, old EKG, old radiological studies, urgent care reports/EKG's, usp records)? Report findings @ -I reviewed prior laboratory studies radiological studies on this patient. Differential Diagnosis (chest pain, altered mental status, abdominal pain women, abdominal pain men, vaginal bleeding, weakness, fever, dyspnea, syncope, headache, dizziness, GI bleed, back pain, seizure, CVA, palpatations, mental health, musculoskeletal)? @ -Differential Dyspnea: Coronary syndrome, arrhythmia, tamponade, asthma, COPD, pulmonary embolism, pneumonia, pneumothorax, pulmonary effusion, anaphylaxis, diabetic ketoacidosis, flailed chest, pulmonary contusion, diaphragmatic rupture, anemia, neuromuscular, this is not meant to be an all-inclusive list. EKG interpreted by me (3pts min.). @ -As above X-rays interpreted by me (1pt min.). @ -Chest x-ray is interpreted by myself. Shows a right lower lobe infiltrate CT interpreted by me (1pt min.). @ -Patient's d-dimer is elevated so I CAT scan the patient. CT of the chest was interpreted by myself that shows no pulmonary embolism however there is dried lobe infiltrate particularly on the right side most consistent with COVID U/S interpreted by me (1pt. min.). @ -None done What testing was considered but not performed or refused? (CT, X-rays, U/S, labs)? Why? @ -None What meds were considered but not given or refused? Why? @ -None Did you discuss the management of the patient with other professionals (professionals i.e. Dr., PA, BIBLIOGRAPHIC SERVICES SPECIALIST, lab, RT, psych nurse, social service agency director, returned goods repairer, teacher, seismology technical officer, bilingual case manager)? Give summary @ -[facility] physician's agreed to admit the patient to the patient wrote admitting orders. Was smoking cessation discussed for >3mins.? @ -No Was critical care preformed (if so, how long)? @ -No Were there social determinants of health that impacted care today? How? (Homelessness, low income, unemployed, alcoholism, drug addiction, transportation, low edu. Level, literacy, decrease access to med. care, usp, rehab)? @ -No Was there de-escalation of care discussed even if they declined (Discuss DNR or withdrawal of care, Hospice)? DNR status @ -No What co-morbidities impacted this encounter? (DM, HTN, Smoking, COPD, CAD, Cancer, CVA, ARF, Chemo, Hep., AIDS, mental health diagnosis, sleep apnea, morbid obesity)? @ -None Was patient admitted / discharged? Hospital course, mention meds given and route, prescriptions, significant lab abnormalities, going to OR and other pertinent info. @ -Patient was seen in the hospital and interviewed by myself. Patient was oxygenating at about 94% side gave her breathing treatment did make her feel better. Patient's x-ray showed infiltrate but a d-dimer was elevated so I CAT scan showed trilobar pneumonia. Patient had no white count patient had no shift even though her initial COVID test was negative I was suspicious for COVID/started on some steroids I did however continue to give antibiotics because of the pneumonia and negative COVID test. COVID test will be repeated. I spoke with some physician's agreed to admit the patient admitted the patient wrote admitting orders I consulted pulmonary Undiagnosed new problem with uncertain prognosis? @ -No Drug Therapy requiring intensive monitoring for toxicity (Heparin, Nitro, Insulin, Cardizem)? @ -No Were any procedures done? @ -No Diagnosis/symptom? @ -Bony a multilobar Acute, or Chronic, or Acute on Chronic? @ -Acute Uncomplicated (without systemic symptoms) or Complicated (systemic symptoms)? @ -Complicated Side effects of treatment? @ -No Exacerbation, Progression, or Severe Exacerbation? @ -No Poses a threat to life or bodily function? How? (Chest pain, [place], [place], pneumonia, PE, COPD, DKA, ARF, appy, cholecystitis, CVA, Diverticulitis, Homicidal, Suicidal, threat to staff... and all critical care pts) @ -Yes this could lead to hypoxia which lead to end organ dysfunction - Lab Data Result diagrams: 10/27/22 11:46 10/27/22 11:46 Lab Results 10/27/22 10/27/22 10/27/22 Range/Units 11:46 11:46 11:46 WBC 8.1 (3.8-10.6) k/uL RBC 4.45 (3.80-5.40) m/uL Hgb 13.6 (11.4-16.0) gm/dL Hct 40.5 (34.0-46.0) % MCV 90.9 (80.0-100.0) fL MCH 30.6 (25.0-35.0) pg MCHC 33.7 (31.0-37.0) g/dL RDW 13.0 (11.5-15.5) % Plt Count 202 (150-450) k/uL MPV 8.4 Neutrophils % 75 % Lymphocytes % 17 % Monocytes % 5 % Eosinophils % 2 % Basophils % 0 % Neutrophils # 6.1 (1.3-7.7) k/uL Lymphocytes # 1.4 (1.0-4.8) k/uL Monocytes # 0.4 (0-1.0) k/uL Eosinophils # 0.1 (0-0.7) k/uL Basophils # 0.0 (0-0.2) k/uL PT 10.3 (9.0-12.0) sec INR 1.0 (<1.2) APTT 22.9 (22.0-30.0) sec D-Dimer 1.13 H (<0.60) mg/L FEU Sodium 137 (137-145) mmol/L Potassium 3.7 (3.5-5.1) mmol/L Chloride 101 (98-107) mmol/L Carbon Dioxide 25 (22-30) mmol/L Anion Gap 11 mmol/L BUN 8 (7-17) mg/dL Creatinine 0.65 (0.52-1.04) mg/dL Est GFR (CKD-EPI)AfAm >90 (>60 ml/min/1.73 sqM) Est GFR (CKD-EPI)NonAf >90 (>60 ml/min/1.73 sqM) Glucose 157 H (74-99) mg/dL Plasma Lactic Acid Meño (0.7-2.0) mmol/L Calcium 8.9 (8.4-10.2) mg/dL Magnesium 1.8 (1.6-2.3) mg/dL Total Bilirubin 0.6 (0.2-1.3) mg/dL AST 30 (14-36) U/L ALT 24 (4-34) U/L Alkaline Phosphatase 64 (38-126) U/L Troponin I (0.000-0.034) ng/mL NT-Pro-B Natriuret Pep pg/mL Total Protein 7.3 (6.3-8.2) g/dL Albumin 3.9 (3.5-5.0) g/dL Influenza Type A (PCR) (Not Detectd) Influenza Type B (PCR) (Not Detectd) RSV (PCR) (Not Detectd) SARS-CoV-2 (PCR) (Not Detectd) 10/27/22 10/27/22 10/27/22 Range/Units 11:46 11:46 11:46 WBC (3.8-10.6) k/uL RBC (3.80-5.40) m/uL Hgb (11.4-16.0) gm/dL Hct (34.0-46.0) % MCV (80.0-100.0) fL MCH (25.0-35.0) pg MCHC (31.0-37.0) g/dL RDW (11.5-15.5) % Plt Count (150-450) k/uL MPV Neutrophils % % Lymphocytes % % Monocytes % % Eosinophils % % Basophils % % Neutrophils # (1.3-7.7) k/uL Lymphocytes # (1.0-4.8) k/uL Monocytes # (0-1.0) k/uL Eosinophils # (0-0.7) k/uL Basophils # (0-0.2) k/uL PT (9.0-12.0) sec INR (<1.2) APTT (22.0-30.0) sec D-Dimer (<0.60) mg/L FEU Sodium (137-145) mmol/L Potassium (3.5-5.1) mmol/L Chloride (98-107) mmol/L Carbon Dioxide (22-30) mmol/L Anion Gap mmol/L BUN (7-17) mg/dL Creatinine (0.52-1.04) mg/dL Est GFR (CKD-EPI)AfAm (>60 ml/min/1.73 sqM) Est GFR (CKD-EPI)NonAf (>60 ml/min/1.73 sqM) Glucose (74-99) mg/dL Plasma Lactic Acid Meño 2.2 H* (0.7-2.0) mmol/L Calcium (8.4-10.2) mg/dL Magnesium (1.6-2.3) mg/dL Total Bilirubin (0.2-1.3) mg/dL AST (14-36) U/L ALT (4-34) U/L Alkaline Phosphatase (38-126) U/L Troponin I <0.012 (0.000-0.034) ng/mL NT-Pro-B Natriuret Pep 72 pg/mL Total Protein (6.3-8.2) g/dL Albumin (3.5-5.0) g/dL Influenza Type A (PCR) (Not Detectd) Influenza Type B (PCR) (Not Detectd) RSV (PCR) (Not Detectd) SARS-CoV-2 (PCR) (Not Detectd) 10/27/22 Range/Units 11:46 WBC (3.8-10.6) k/uL RBC (3.80-5.40) m/uL Hgb (11.4-16.0) gm/dL Hct (34.0-46.0) % MCV (80.0-100.0) fL MCH (25.0-35.0) pg MCHC (31.0-37.0) g/dL RDW (11.5-15.5) % Plt Count (150-450) k/uL MPV Neutrophils % % Lymphocytes % % Monocytes % % Eosinophils % % Basophils % % Neutrophils # (1.3-7.7) k/uL Lymphocytes # (1.0-4.8) k/uL Monocytes # (0-1.0) k/uL Eosinophils # (0-0.7) k/uL Basophils # (0-0.2) k/uL PT (9.0-12.0) sec INR (<1.2) APTT (22.0-30.0) sec D-Dimer (<0.60) mg/L FEU Sodium (137-145) mmol/L Potassium (3.5-5.1) mmol/L Chloride (98-107) mmol/L Carbon Dioxide (22-30) mmol/L Anion Gap mmol/L BUN (7-17) mg/dL Creatinine (0.52-1.04) mg/dL Est GFR (CKD-EPI)AfAm (>60 ml/min/1.73 sqM) Est GFR (CKD-EPI)NonAf (>60 ml/min/1.73 sqM) Glucose (74-99) mg/dL Plasma Lactic Acid Meño (0.7-2.0) mmol/L Calcium (8.4-10.2) mg/dL Magnesium (1.6-2.3) mg/dL Total Bilirubin (0.2-1.3) mg/dL AST (14-36) U/L ALT (4-34) U/L Alkaline Phosphatase (38-126) U/L Troponin I (0.000-0.034) ng/mL NT-Pro-B Natriuret Pep pg/mL Total Protein (6.3-8.2) g/dL Albumin (3.5-5.0) g/dL Influenza Type A (PCR) Not Detected (Not Detectd) Influenza Type B (PCR) Not Detected (Not Detectd) RSV (PCR) Not Detected (Not Detectd) SARS-CoV-2 (PCR) Not Detected (Not Detectd) Disposition Clinical Impression: Multifocal pneumonia Disposition: ADMITTED IP TO THIS HOSP Referrals: Theo Fairbanks DO [Primary Care Provider] - 1-2 days Time of Disposition: 13:42
--- NOTE | 2022-10-27 12:02 | XR ---
EXAMINATION TYPE: XR chest 2V DATE OF EXAM: 10/27/2022 11:52 AM COMPARISON: Chest radiographs from 05/13/2020 TECHNIQUE: XR chest 2V Frontal and lateral views of the chest. CLINICAL INDICATION:Female, 66 years old with history of difficulty breathing; FINDINGS: Lungs/Pleura: There is no evidence of pleural effusion or pneumothorax. Right lower lung airspace op acities. Pulmonary vascularity: Unremarkable. Heart/mediastinum: Cardiomediastinal silhouette is unremarkable. Musculoskeletal: No acute osseous pathology. IMPRESSION: Right lower lung airspace opacities concerning for pneumonia
[2022-10-27 12:16] LABS: Basophils % (A) 0 %; Eosinophils # (A) 0.1 k/uL (0-0.7); Eosinophils % (A) 2 %; HCT 40.5 % (34.0-46.0); HGB 13.6 gm/dL (11.4-16.0); Lymphocytes # (A) 1.4 k/uL (1.0-4.8); Lymphocytes % (A) 17 %; MCH 30.6 pg (25.0-35.0); MCHC 33.7 g/dL (31.0-37.0); MCV 90.9 fL (80.0-100.0); Mean Platelet Volume 8.4; Monocytes # (A) 0.4 k/uL (0-1.0); Monocytes % (A) 5 %; Neutrophils # (A) 6.1 k/uL (1.3-7.7); Neutrophils % (A) 75 %; Platelet Count 202 k/uL (150-450); RBC 4.45 m/uL (3.80-5.40); WBC 8.1 k/uL (3.8-10.6)
[2022-10-27 12:30] LABS: ALT 24 U/L (4-34); AST 30 U/L (14-36); African American GFR (CKD) >90 (>60 ml/min/1.73 sqM); Albumin 3.9 g/dL (3.5-5.0); Alkaline Phosphatase 64 U/L (38-126); Anion Gap 11 mmol/L; Blood Urea Nitrogen 8 mg/dL (7-17); Calcium 8.9 mg/dL (8.4-10.2); Carbon Dioxide 25 mmol/L (22-30); Chloride 101 mmol/L (98-107); Glucose 157 mg/dL (74-99); Magnesium 1.8 mg/dL (1.6-2.3); Non-African American GFR(CKD) >90 (>60 ml/min/1.73 sqM); Potassium 3.7 mmol/L (3.5-5.1); Sodium 137 mmol/L (137-145); Total Bilirubin 0.6 mg/dL (0.2-1.3); Total Protein 7.3 g/dL (6.3-8.2)
[2022-10-27 12:38] LABS: Partial Thromboplastin Time 22.9 sec (22.0-30.0); Prothrombin Time 10.3 sec (9.0-12.0)
[2022-10-27] MEDS ORDERED: cefTRIAXone IN SWFI 1,000 MG/10 ML SYRINGE IVP STA (12:54)
--- NOTE | 2022-10-27 13:27 | CT ---
EXAMINATION TYPE: CT chest angio for PE CT DLP: 441 mGycm, Automated exposure control for dose reduction was used. DATE OF EXAM: 10/27/2022 1:17 PM COMPARISON: Chest radiograph from same day. CLINICAL INDICATION:Female, 66 years old with history of Difficulty breathing, chest pain, d-dimer; TECHNIQUE/CONTRAST: CTA scan of the thorax is performed with IV Contrast, patient injected with 100 mL of Isovue 370, pul monary embolism protocol. MIP images are created and reviewed [facility] FINDINGS: Pulmonary Artery: There is no evidence for a filling defect within the pulmonary vasculature to sugge st acute pulmonary embolism. The pulmonary artery is of normal size. Lungs/Pleura: Peripheral groundglass and airspace opacities are seen throughout the lungs. Airway: Large airways are patent. Heart: Heart is within normal limits for size. Vasculature: No evidence of aortic aneurysm. Mediastinum: No gross evidence of adenopathy. Musculoskeletal: No acute osseous abnormalities Soft Tissues: Unremarkable. Lower neck: No significant findings. Upper Abdomen: Diffuse low-attenuation to the liver parenchyma.. IMPRESSION: 1. No evidence of pulmonary embolism. 2. Peripheral groundglass and airspace opacities correlate for COVID-19 as seen on same day chest rad iograph 3. Hepatic steatosis
[2022-10-27] MEDS ORDERED: DEXAMETHASONE SOD PHOSPHATE 10 MG/ML 1 ML VIAL IVP STA (13:32)
[2022-10-27] MEDS ORDERED: PNEUMONIA PROTOCOL UTILIZED 1 EACH MISC PO PRN (13:43)
[2022-10-27] MEDS ORDERED: LEVOFLOXACIN 750MG-D5W PMX 750 MG in DEXTROSE/WATER 1 150ML.BAG IVPB STA (13:43)
[2022-10-27] MEDS ORDERED: BENZONATATE 100 MG CAP PO PRN (14:25)
[2022-10-27] MEDS ORDERED: DEXTROSE 50% SYRINGE 50 ML IVP PRN ×2 (14:29)
[2022-10-27] MEDS ORDERED: ACETAMINOPHEN TAB 325 MG TAB PO PRN (14:36)
--- NOTE | 2022-10-27 14:42 | P.HPIM ---
History of Present Illness H&P Date: 10/27/22 Chief Complaint: Cough Patient is a 66-year-old female with a past medical history of hypertension, diabetes, GERD who presents to the ED with worsening cough that started 5 days ago. Patient stated that she initially went to her PCP and was prescribed azithromycin. She stated that she still has 2 more days of azithromycin left to take. Patient states that her symptoms were not improving so she decided to come in. Patient denies any fevers. She denies productive cough. Patient states that yesterday she did have a runny nose which has now resolved. Patient also states that she has some chest pain when she coughs. In the ED patient was satting 100% on room air. Patient's COVID-19 was negative. Her labs were unremarkable. Patient had no fever or leukocytosis. In the ED CTA chest was negative for pulmonary embolism but did show peripheral groundglass and airspace opacities. Patient was given dexamethasone by ED physician. Patient is also given a dose of Rocephin.Patient admitted for further evaluation. 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 pneumonia Past Anesthesia/Blood Transfusion Reactions: No Reported Reaction Past Psychological History: No Psychological Hx Reported Past Alcohol Use History: None Reported - Past Family History Mother Family Medical History: Hypertension Additional Family Medical History / Comment(s): HEART PROBLEMS Father Family Medical History: Cancer Additional Family Medical History / Comment(s): heart problems Medications and Allergies Home Medications Medication Instructions Recorded Confirmed Type Aspirin EC [Ecotrin Low Dose] 81 mg PO DAILY 05/10/14 10/27/22 History Metoprolol Tartrate [Lopressor] 50 mg PO BID 05/10/14 10/27/22 History Omeprazole [PriLOSEC] 20 mg PO DAILY 05/10/14 10/27/22 History Nitroglycerin Sl Tabs [Nitrostat] 0.4 mg SUBLINGUAL Q5M PRN #25 tab 09/03/19 10/27/22 Rx Acetaminophen [Tylenol] 650 mg PO Q6H PRN 11/06/19 10/27/22 History Clopidogrel [Plavix] 75 mg PO DAILY 02/10/20 10/27/22 History hydroCHLOROthiazide [Hydrodiuril] 25 mg PO DAILY 02/10/20 10/27/22 History Dulaglutide [Trulicity] 1.5 mg SQ BAPTISTE 03/26/22 10/27/22 History Ibuprofen [Motrin] 800 mg PO Q8H PRN 07/24/22 10/27/22 History Azithromycin [Zithromax] 500 mg PO DAILY 10/27/22 10/27/22 History Losartan Potassium 100 mg PO DAILY 10/27/22 10/27/22 History Rosuvastatin [Crestor] 10 mg PO HS 10/27/22 10/27/22 History Allergies Allergy/AdvReac Type Severity Reaction Status Date / Time Penicillins Allergy Unknown Swelling, Verified 10/27/22 14:31 Rash/hives Physical Exam Osteopathic Statement: *. No significant issues noted on an osteopathic structural exam other than those noted in the History and Physical/Consult. Vitals: Vital Signs Temp Pulse Resp BP Pulse Ox 10/27/22 14:00 68 17 150/61 99 10/27/22 13:29 72 10/27/22 13:21 60 10/27/22 13:00 61 15 127/70 97 10/27/22 12:16 65 19 98 10/27/22 11:29 97.8 F 68 16 171/79 94 L Intake and Output 10/26/22 10/27/22 10/27/22 22:59 06:59 14:59 Other: Weight 98.43 kg General: [Alert and oriented, well nourished, no acute distress]. Eye: [PERRL, EOMI, normal conjunctiva]. HENT: [Normocephalic, clear tympanic membranes, normal hearing, moist oral mucosa, no scleral icterus, no sinus tenderness]. Neck: [Supple, non-tender, no carotid bruits, no JVD, no lymphadenopathy]. Lungs: [Clear to auscultation and percussion, non-labored respiration]. Heart: [Normal rate, regular rhythm, no murmur, gallop or edema]. Abdomen: [Soft, non-tender, non-distended, normal bowel sounds, no masses]. Musculoskeletal: [Normal range of motion and strength, no tenderness or swelling]. Skin: [Skin is warm, dry and pink, no rashes or lesions]. Neurologic: [Awake, alert, and oriented X3, CN II-XII intact]. Psychiatric: [Cooperative, appropriate mood and affect]. Results CBC & Chem 7: 10/27/22 11:46 03 11:46 Labs: Abnormal Lab Results - Last 24 Hours (Table) 10/27/22 10/27/22 10/27/22 Range/Units 11:46 11:46 11:46 D-Dimer 1.13 H (<0.60) mg/L FEU Glucose 157 H (74-99) mg/dL Plasma Lactic Acid Meño 2.2 H* (0.7-2.0) mmol/L Assessment and Plan Assessment: Patient presented to the ED with cough despite being on antibiotics In the ED patient was satting 100% on room air. Patient's COVID-19 was negative. Patient was given dexamethasone by ED physician. Patient is also given a dose of Rocephin. In the ED CTA chest was negative for pulmonary embolism but did show peripheral groundglass and airspace opacities. Patient admitted for further evaluation. Pneumonia likely viral Nonproductive cough Computed tomography scan shows bilateral groundglass opacities concerning for viral pneumonia. Patient also reported URI symptoms. Patient reported no improvement in her symptoms with azithromycin. Influenza RSV and COVID-19 tests were negative in the ED Doubt bacterial pneumonia. We'll empirically start the patient on antibiotics with IV Rocephin 1 g every 24 hours and oral azithromycin 500 mg daily (patient started azithromycin regimen outpatient and only has 2 more days left). We'll check pro-calcitonin and if negative we'll discontinue the antibiotics. Follow up on blood cultures Obtain sputum culture if able to Check urine Legionella antigen Patient was given 10 mg of dexamethasone in the ED. Will hold off on further steroids as patient was negative for COVID-19 and also satting 100% on room air. We'll start the patient on Tessalon Perles when necessary and Robitussin standing Consult pulmonology to rule out other etiologies of the bilateral groundglass opacities Diabetes mellitus Sliding-scale insulin Hypertension Resume home meds Coronary artery disease Resume Plavix and statin and aspirin and beta argenis Patient had a stress test done last month that was unremarkable GERD Resume PPI CODE STATUS:full code DVT prophylaxis: SC heaprin Discussed with: Patient, ER, rn Anticipated length of stay < than [address]: home
[2022-10-27] MEDS: guaiFENesin SYRUP 100MG/5ML 200 MG/10 ML CUP PO SCH ×3 (15:02→23:55)
[2022-10-27] MEDS: ALBUTEROL HFA INHALER INHALATION SCH ×2 (15:45→21:09)
[2022-10-27 15:59] LABS: Glucose,Whole Blood 139 mg/dL (70-110)
[2022-10-27] MEDS: INSULIN ASPART (NovoLOG) 100 UNIT/ML VIAL SQ SCH ×2 (16:29→21:23)
[2022-10-27] MEDS: HEPARIN SODIUM,PORCINE/PF 5,000 UNIT/0.5 ML SYRINGE SQ SCH ×2 (16:32→23:55)
[2022-10-27 21:14] LABS: Glucose,Whole Blood 236 mg/dL (70-110)
[2022-10-27] MEDS: ATORVASTATIN 20 MG TAB PO SCH (21:23)
[2022-10-27] MEDS: METOPROLOL TARTRATE 50 MG TAB PO SCH (21:23)
[2022-10-28 06:33] LABS: Glucose,Whole Blood 177 mg/dL (70-110)
[2022-10-28] MEDS: INSULIN ASPART (NovoLOG) 100 UNIT/ML VIAL SQ SCH ×4 (06:37→21:05)
[2022-10-28] MEDS: guaiFENesin SYRUP 100MG/5ML 200 MG/10 ML CUP PO SCH ×3 (06:37→17:52)
[2022-10-28] MEDS: ALBUTEROL HFA INHALER INHALATION SCH ×4 (08:09→19:50)
[2022-10-28] MEDS: HEPARIN SODIUM,PORCINE/PF 5,000 UNIT/0.5 ML SYRINGE SQ SCH ×2 (08:56→15:48)
[2022-10-28] MEDS: ASPIRIN 81 MG PO SCH (08:57)
[2022-10-28] MEDS: LOSARTAN 50 MG TAB PO SCH (08:57)
[2022-10-28] MEDS: PANTOPRAZOLE 40 MG TABLET PO SCH (08:57)
[2022-10-28] MEDS: CLOPIDOGREL 75 MG TAB PO SCH (08:57)
[2022-10-28] MEDS: hydroCHLOROthiazide 25 MG TAB PO SCH (08:57)
[2022-10-28] MEDS: METOPROLOL TARTRATE 50 MG TAB PO SCH ×2 (08:57→21:05)
[2022-10-28] MEDS: AZITHROMYCIN 500 MG TAB PO SCH (08:57)
[2022-10-28] MEDS ORDERED: TRULICITY 1.5 MG/0.5 ML SQ SCH (09:00)
[2022-10-28 11:02] LABS: Glucose,Whole Blood 184 mg/dL (70-110)
--- NOTE | 2022-10-28 12:43 | P.CNPUL ---
History of Present Illness Consult date: 10/28/22 Reason for consult: pneumonia History of present illness: 66-year-old female patient presenting with increased cough and dyspnea and chest pain and shortness of breath. The patient started getting sick around we can go her condition was progressively getting worse and for that reason she ended up running into the hospital. Initial chest x-ray showed right pulmonary infiltrates and the CAT scan of the chest was done that showed extensive bi lateral pulmonary patchy interstitial infiltrates bilaterally. Note the patient denies having any fever. She is expressing shortness of breath. No pleurisy. No hemoptysis. She has infected 5 [place]. She has obstructive sleep apnea. Not utilizing CPAP therapy. No travel history. No aspiration. She has been vaccinated for Covid 19. The vital screening including RSV Covid 19 and influenza came back negative. Legionella urine antigen was sent and is also still pending for now. As mentioned, despite extensive pulmonary infiltration, she has a pulse ox of 99% on room air oxygen. The patient has no significant leukocytosis. No other sick contacts. No recurrent pneumonias. She is di abetic and she has hypertension and coronary artery disease. Review of Systems Constitutional: Reports fatigue, Reports weakness Eyes: denies as per HPI, denies blurred vision, denies bulging eye, denies decreased vision, denies diplopia, denies discharge, denies dry eye, denies irritation, denies itching, denies pain, denies photophobia, denies loss of peripheral vision, denies loss of vision, denies tunnel vision/blind spots Ears: deny: decreased hearing, ear discharge, earache, tinnitus Ears, nose, mouth and throat: Reports as per HPI Breasts: absent: as per HPI, change in shape, gynecomastia, masses, nipple discharge, pain, skin changes, swelling Cardiovascular: Reports as per HPI, Reports chest pain Respiratory: Reports cough, Reports dyspnea Gastrointestinal: Reports as per HPI Genitourinary: Reports as per HPI Menstruation: Reports as per HPI Musculoskeletal: absent: ankle pain, ankle stiffness, ankle swelling Integumentary: Reports as per HPI Neurological: Reports as per HPI Psychiatric: Reports as per HPI Endocrine: Reports as per HPI Hematologic/Lymphatic: Reports as per HPI Allergic/Immunologic: Reports as per HPI Past Medical History Past Medical History: Coronary Artery Disease (CAD), Diabetes Mellitus, GERD/Reflux, Hypertension Additional Past Medical History / Comment(s): FACTOR V CARRIER Last Myocardial Infarction Date:: 09/03/2019 History of Any Multi-Drug Resistant Organisms: None Reported Past Surgical History: Appendectomy, Cholecystectomy, Heart Catheterization, Hysterectomy Additional Past Surgical History / Comment(s): ISABELL CARPAL TUNNEL. pneumonia Past Anesthesia/Blood Transfusion Reactions: No Reported Reaction Date of Last Stent Placement:: 09/03/2019 Past Psychological History: No Psychological Hx Reported Past Alcohol Use History: None Reported - Past Family History Mother Family Medical History: Hypertension Additional Family Medical History / Comment(s): HEART PROBLEMS Father Family Medical History: Cancer Additional Family Medical History / Comment(s): heart problems Medications and Allergies Home Medications Medication Instructions Recorded Confirmed Type Aspirin EC [Ecotrin Low Dose] 81 mg PO DAILY 05/10/14 10/27/22 History Metoprolol Tartrate [Lopressor] 50 mg PO BID 05/10/14 10/27/22 History Omeprazole [PriLOSEC] 20 mg PO DAILY 05/10/14 10/27/22 History Nitroglycerin Sl Tabs [Nitrostat] 0.4 mg SUBLINGUAL Q5M PRN #25 tab 09/03/19 10/27/22 Rx Acetaminophen [Tylenol] 650 mg PO Q6H PRN 11/06/19 10/27/22 History Clopidogrel [Plavix] 75 mg PO DAILY 02/10/20 10/27/22 History hydroCHLOROthiazide [Hydrodiuril] 25 mg PO DAILY 02/10/20 10/27/22 History Dulaglutide [Trulicity] 1.5 mg SQ BAPTISTE 03/26/22 10/27/22 History Ibuprofen [Motrin] 800 mg PO Q8H PRN 07/24/22 10/27/22 History Azithromycin [Zithromax] 500 mg PO DAILY 10/27/22 10/27/22 History Losartan Potassium 100 mg PO DAILY 10/27/22 10/27/22 History Rosuvastatin [Crestor] 10 mg PO HS 10/27/22 10/27/22 History Allergies Allergy/AdvReac Type Severity Reaction Status Date / Time Penicillins Allergy Unknown Swelling, Verified 10/27/22 14:31 Rash/hives Physical Exam Vitals: Vital Signs Temp Pulse Pulse Resp BP BP Pulse Ox 10/28/22 08:11 98 10/28/22 06:40 97.9 F 65 18 147/71 97 10/28/22 01:54 98.0 F 61 17 139/63 97 10/27/22 20:00 98.2 F 78 17 142/70 96 10/27/22 15:43 154/72 10/27/22 14:55 97.9 F 69 18 183/95 94 L 10/27/22 14:38 69 18 159/64 98 10/27/22 14:00 68 17 150/61 99 10/27/22 13:29 72 10/27/22 13:21 60 10/27/22 13:00 61 15 127/70 97 10/27/22 12:16 65 19 98 Intake and Output 10/27/22 10/28/22 10/28/22 21:59 06:59 14:59 Other: Voiding Method # Voids Weight Calm and comfortable currently on room air oxygen The patient appeared well nourished and normally developed. Vital signs as documented. Head exam is unremarkable. No scleral icterus or corneal arcus noted. Neck is without jugular venous distension, thyromegaly, or carotid bruits. Carotid upstrokes are brisk bilaterally. Lungs are diminished breath sounds bilaterally along with some few scattered expiratory rhonchi and wheezes.. Cardiac exam reveals the PMI to be normally sized and situated. Rhythm is regular. First and second heart sounds normal. No murmurs, rubs or gallops. Abdominal exam reveals normal bowel sounds, no masses, no organomegaly and no aortic enlargement. Extremities are nonedematous and both femoral and pedal pulses are normal.Examination of the skin revealed no evidence of significant rashes, suspicious appearing nevi or other concerning lesions.Neurologically, the patient is awake and alert and the patient does not have any focal neurological deficit. Cranial nerves are essentially intact. Results - Laboratory Findings CBC and BMP: 10/27/22 11:46 10/27/22 11:46 PT/INR, D-dimer PT 10.3 sec (9.0-12.0) 10/27/22 11:46 INR 1.0 (<1.2) 10/27/22 11:46 D-Dimer 1.13 mg/L FEU (<0.60) H 10/27/22 11:46 Abnormal lab findings: Abnormal Labs 10/27/22 10/27/22 10/27/22 11:46 11:46 11:46 D-Dimer 1.13 H Glucose 157 H POC Glucose (mg/dL) Hemoglobin A1c Plasma Lactic Acid Meño 2.2 H* 10/27/22 10/27/22 10/27/22 11:46 15:57 21:13 D-Dimer Glucose POC Glucose (mg/dL) 139 H 236 H Hemoglobin A1c 6.6 H Plasma Lactic Acid Meño 10/28/22 10/28/22 06:31 11:00 D-Dimer Glucose POC Glucose (mg/dL) 177 H 184 H Hemoglobin A1c Plasma Lactic Acid Meño - Diagnostic Findings Chest x-ray: image reviewed CT scan - chest: image reviewed Assessment and Plan Plan: Bilateral pneumonia, acute/subacute, exact cause is not clear. Could be routine bacterial, atypical/viral. The patient is improving on accommodation of Roce phin and Zithromax. Despite extensive infiltration, there is no evidence of any significant leukocytosis or oxygen desaturation. As such, other noninfectious causes of bilateral pulmonary infiltration need to be considered. Nevertheless, the acute nature of this problem and speaks more for an infectious etiology. Also, the patient reports improvement with a combination of Rocephin and Zithromax. Obstructive sleep apnea, not tolerant to CPAP therapy Coronary artery disease Hypertension Diabetes mellitus Plan Continue Rocephin and Zithromax Legionella urine antigen Unable to bring up much sputum, as such his sputum collections it would not be possible Blood cultures Resume all medications May need a bronchoscopy in the lavage and/or biopsies if no improvement of the above-mentioned pulmonary infiltration.
--- NOTE | 2022-10-28 14:33 | P.PN ---
Subjective Progress Note Date: 10/28/22 Hospital Course: 66-year-old female with a past medical history of hypertension, diabetes, GERD who presents to the ED with worsening cough that started 5 days ago. In the ED patient was satting 100% on room air. Patient's COVID-19 was negative. Her labs were unremarkable. Patient had no fever or leukocytosis. In the ED CTA chest was negative for pulmonary embolism but did show peripheral groundglass and airspace opacities. Patient admitted for multifocal pneumonia. Subjective: Patient seen and examined at bedside. No acute events overnight. She claims that her shortness of breath has slightly improved. She continues to have nonproductive cough. She denies any chest pain, abdominal pain, nausea, vomiting, diarrhea, constipation, or urinary complaints. Pertinent positives and negatives as discussed above, a complete review of systems was performed and all other systems are negative. Vitals Signs Reviewed. General: nontoxic, no distress, appears at stated age Derm: warm, dry Head: atraumatic, normocephalic, symmetric Eyes: EOMI, no lid lag, anicteric sclera Mouth: no lip lesion, mucus membranes moist Cardiovascular: S1S2 reg, no murmur Lungs: Bilateral scattered rhonchi, no accessory muscle use Abdominal: soft, nontender to palpation, no guarding, no appreciable organomegaly Ext: no gross muscle atrophy, no edema, no contractures Neuro: CN II-XI grossly intact, no focal neuro deficits Psych: Alert, oriented, appropriate affect Data Reviewed Today: Pertinent Labs: Blood sugars 139-236 Blood cultures negative growth to date Sputum culture, pending Assessment and Plan: Active: Multifocal pneumonia, likely viral Nonproductive cough Elevated d dimer Diabetes mellitus -Pulmonology note reviewed: Continue Rocephin and Zithromax, Legionella urine antigen pending -Sputum cultures pending -If improving, consider discharge tomorrow as patient not requiring any oxygen -Pulmonology however we'll consider bronchoscopy if no improvement -Procalcitonin ordered -CT negative for PE -On sliding scale insulin, no changes Chronic: Hypertension Coronary artery disease GERD Asuncion DVT ppx: Subcu heparin Code status: Full code Anticipated discharge place: Home Anticipated discharge time: Likely tomorrow Objective - Vital Signs Vital signs: Vital Signs Temp 98.3 F 10/28/22 13:05 Pulse 74 10/28/22 13:05 Resp 18 10/28/22 13:05 BP 149/78 10/28/22 13:05 Pulse Ox 96 10/28/22 13:05 FiO2 Intake & Output 10/27/22 10/28/22 10/28/22 17:59 06:59 18:59 Weight Other: Voiding Method # Voids - Labs CBC & Chem 7: 10/27/22 11:46 10/27/22 11:46 Labs: Abnormal Lab Results - Last 24 Hours (Table) 10/27/22 10/27/22 10/27/22 Range/Units 11:46 15:57 21:13 POC Glucose (mg/dL) 139 H 236 H (70-110) mg/dL Hemoglobin A1c 6.6 H (0.0-6.0) % 10/28/22 10/28/22 Range/Units 06:31 11:00 POC Glucose (mg/dL) 177 H 184 H (70-110) mg/dL Hemoglobin A1c (0.0-6.0) % Microbiology - Last 24 Hours (Table) 10/27/22 11:45 Blood Culture - Preliminary Blood No Growth after 24 hours 10/27/22 12:00 Blood Culture - Preliminary Blood No Growth after 24 hours 10/28/22 08:16 Sputum Culture - Preliminary Sputum
[2022-10-28 15:59] LABS: Glucose,Whole Blood 191 mg/dL (70-110)
[2022-10-28 20:18] LABS: Glucose,Whole Blood 213 mg/dL (70-110)
[2022-10-28] MEDS: ATORVASTATIN 20 MG TAB PO SCH (21:05)
[2022-10-29] MEDS: guaiFENesin SYRUP 100MG/5ML 200 MG/10 ML CUP PO SCH ×5 (00:04→23:46)
[2022-10-29] MEDS: HEPARIN SODIUM,PORCINE/PF 5,000 UNIT/0.5 ML SYRINGE SQ SCH ×4 (00:04→23:46)
[2022-10-29 06:01] LABS: Glucose,Whole Blood 126 mg/dL (70-110)
[2022-10-29] MEDS: INSULIN ASPART (NovoLOG) 100 UNIT/ML VIAL SQ SCH ×4 (06:03→21:38)
[2022-10-29] MEDS: METOPROLOL TARTRATE 50 MG TAB PO SCH ×2 (07:51→21:38)
[2022-10-29] MEDS: AZITHROMYCIN 500 MG TAB PO SCH (07:51)
[2022-10-29] MEDS: LOSARTAN 50 MG TAB PO SCH (07:51)
[2022-10-29] MEDS: CLOPIDOGREL 75 MG TAB PO SCH (07:51)
[2022-10-29] MEDS: ASPIRIN 81 MG PO SCH (07:51)
[2022-10-29] MEDS: PANTOPRAZOLE 40 MG TABLET PO SCH (07:51)
[2022-10-29] MEDS: hydroCHLOROthiazide 25 MG TAB PO SCH (07:51)
[2022-10-29] MEDS: ALBUTEROL HFA INHALER INHALATION SCH ×4 (08:29→20:30)
[2022-10-29 09:07] LABS: Basophils # (A) 0.04 X 10*3/uL (0.00-0.10); Basophils % (A) 0.3 %; Eosinophils # (A) 0.07 X 10*3/uL (0.04-0.35); Eosinophils % (A) 0.6 %; HCT 40.8 % (37.2-46.3); HGB 13.4 g/dL (12.0-15.0); Immature Grans, Automated 0.3 %; Lymphocytes # (A) 3.58 X 10*3/uL (0.90-5.00); Lymphocytes % (A) 30.9 %; MCH 29.7 pg (27.0-32.0); MCHC 32.8 g/dL (32.0-37.0); MCV 90.5 fL (80.0-97.0); Mean Platelet Volume 11.2 fL (9.5-12.2); Monocytes # (A) 0.79 X 10*3/uL (0.20-1.00); Monocytes % (A) 6.8 %; NRBC Per 100 WBC 0 /100 WBCS (0.0-0.0); Neutrophils # (A) 7.07 X 10*3/uL (1.80-7.70); Neutrophils % (A) 61.1 %; Platelet Count 260 X 10*3/uL (140-440); RBC 4.51 X 10*6/uL (4.10-5.20); WBC 11.59 X 10*3/uL (4.50-10.00)
[2022-10-29 09:15] LABS: African American GFR (CKD) 77.8 (60.0-200.0); Anion Gap 10.3 mmol/L (10.00-18.00); BUN/Creat Ratio 19.56 Ratio (12.00-20.00); Blood Urea Nitrogen 17.6 mg/dL (9.0-27.0); Carbon Dioxide 26.7 mmol/L (20.0-27.5); Non-African American GFR(CKD) 67.1 (60.0-200.0); Potassium 4.9 mmol/L (3.5-5.5)
[2022-10-29 11:24] LABS: Glucose,Whole Blood 117 mg/dL (70-110)
--- NOTE | 2022-10-29 13:24 | P.PN ---
Subjective Progress Note Date: 10/29/22 66-year-old female patient presenting with increased cough and dyspnea and chest pain and shortness of breath. The patient started getting sick around we can go her condition was progressively getting worse and for that reason she ended up running into the hospital. Initial chest x-ray showed right pulmonary infiltrates and the CAT scan of the chest was done that showed extensive bilateral pulmonary patchy interstitial infiltrates bilaterally. Note the patient denies having any fever. She is expressing shortness of breath. No pleurisy. No hemoptysis. She has infected 5 [place]. She has obstructive sleep apnea. Not utilizing CPAP therapy. No travel history. No aspiration. She has been vaccinated for Covid 19. The vital screening including RSV Covid 19 and influenza came back negative. Legionella urine antigen was sent and is also still pending for now. As mentioned, despite extensive pulmonary infiltration, she has a pulse ox of 99% on room air oxygen. The patient has no significant leukocytosis. No other sick contacts. No recurrent pneumonias. She is diabetic and she has hypertension and coronary artery disease. The patient is seen today 10/29/2022 in follow-up on the regular medical floor. She is awake and alert in no acute distress. She is resting comfortably in bed. Maintaining good O2 saturations in the 90s on room air. Her pro-calcitonin was negative at 0.06. She states she is not sure if she ever had Covid 19 infection. She tested negative this admission. Sputum culture pending. Blood culture reveals no growth to date. White count 11.5. Hemoglobin 13.4. Sodium 139. Potassium 4.9. Bicarb 27. BUN 17.6. Creatinine 0.9. Glucose 123. She is currently on ceftriaxone and azithromycin along with bronchodilators. Heparin for DVT prophylaxis. Objective - Vital Signs Vital signs: Vital Signs Temp 98.1 F 10/29/22 07:10 Pulse 65 10/29/22 07:51 Resp 18 10/29/22 07:51 BP 135/80 10/29/22 07:10 Pulse Ox 97 10/29/22 08:30 FiO2 Intake & Output 10/28/22 10/29/22 10/29/22 18:59 06:59 18:59 Other: Voiding Method Toilet Toilet # Voids 3 2 - Exam GENERAL EXAM: Alert, active, pleasant 66-year-old female, on room air, comfortable in no apparent distress. HEAD: Normocephalic. EYES: Normal reaction of pupils, equal size. NOSE: Clear with pink turbinates. THROAT: No erythema or exudates. NECK: No masses, no JVD. CHEST: No chest wall deformity. LUNGS: Equal air entry with few scattered crackles. CVS: S1 and S2 normal with no audible murmur, regular rhythm. ABDOMEN: No hepatosplenomegaly, normal bowel sounds, no guarding or rigidity. SPINE: No scoliosis or deformity SKIN: No rashes CENTRAL NERVOUS SYSTEM: No focal deficits, tone is normal in all 4 extremities. EXTREMITIES: There is no peripheral edema. No clubbing, no cyanosis. Peripheral pulses are intact. - Labs CBC & Chem 7: 10/29/22 05:34 10/29/22 05:34 Labs: Abnormal Lab Results - Last 24 Hours (Table) 10/28/22 10/28/22 10/29/22 Range/Units 15:57 20:17 05:34 WBC 11.59 H (4.50-10.00) X 10*3/uL Glucose (70-110) mg/dL POC Glucose (mg/dL) 191 H 213 H (70-110) mg/dL 10/29/22 10/29/22 10/29/22 Range/Units 05:34 05:57 11:22 WBC (4.50-10.00) X 10*3/uL Glucose 123 H (70-110) mg/dL POC Glucose (mg/dL) 126 H 117 H (70-110) mg/dL Microbiology - Last 24 Hours (Table) 10/28/22 08:16 Gram Stain - Preliminary Sputum Sputum Culture - Preliminary 10/27/22 11:45 Blood Culture - Preliminary Blood No Growth after 24 hours 10/27/22 12:00 Blood Culture - Preliminary Blood No Growth after 24 hours Assessment and Plan Assessment: Bilateral pneumonia, acute/subacute, exact cause is not clear. Could be atypical/viral. Pro-calcitonin 0.06. Not likely bacterial. Despite extensive infiltration, there is no evidence of any significant leukocytosis or oxygen desaturation. As such, other noninfectious causes of bilateral pulmonary infiltration need to be considered. Obstructive sleep apnea, not tolerant to CPAP therapy Coronary artery disease Hypertension Diabetes mellitus Plan: The patient was seen and evaluated Labs and medications reviewed Follow up chest x-ray in a.m. Legionella antigen pending Depending on the findings we'll most likely discontinue antibiotics We will continue to follow I have personally seen and examined the patient, performed the documentation and the assessment and plan as written. Number of minutes spent on the visit: 10.
--- NOTE | 2022-10-29 14:56 | P.PN ---
Subjective Progress Note Date: 10/29/22 Patient seen and examined at bedside. Patient is a nonproductive cough that is improving. Shortness of breath is also improving. Patient denies chest pain, nausea, vomiting, fever, or chills. Objective - Vital Signs Vital signs: Vital Signs Temp 98.1 F 10/29/22 07:10 Pulse 65 10/29/22 07:51 Resp 18 10/29/22 07:51 BP 135/80 10/29/22 07:10 Pulse Ox 97 10/29/22 08:30 FiO2 Intake & Output 10/28/22 10/29/22 10/29/22 18:59 06:59 18:59 Other: Voiding Method Toilet Toilet # Voids 3 2 - Exam General: [non toxic], [no distress], [appears at stated age] Derm: [warm], [dry] Head: [atraumatic], [normocephalic], [symmetric] Eyes: [EOMI], [no lid lag], [anicteric sclera] Mouth: [no lip lesion], [mucus membranes moist] Cardiovascular: [S1S2 reg], [no murmur], [positive posterior tibial pulse bilateral], Lungs: [CTA bilateral], [no rhonchi, no rales] , [no accessory muscle use] Abdominal: [soft], [ nontender to palpation], [no guarding], [no appreciable organomegaly] Ext: [no gross muscle atrophy], [no edema], [no contractures] Neuro: [ CN II-XI grossly intact], [no focal neuro deficits] Psych: [Alert], [oriented], [appropriate affect] - Labs CBC & Chem 7: 10/29/22 05:34 10/29/22 05:34 Labs: Abnormal Lab Results - Last 24 Hours (Table) 10/28/22 10/28/22 10/29/22 Range/Units 15:57 20:17 05:34 WBC 11.59 H (4.50-10.00) X 10*3/uL Glucose (70-110) mg/dL POC Glucose (mg/dL) 191 H 213 H (70-110) mg/dL 10/29/22 10/29/22 10/29/22 Range/Units 05:34 05:57 11:22 WBC (4.50-10.00) X 10*3/uL Glucose 123 H (70-110) mg/dL POC Glucose (mg/dL) 126 H 117 H (70-110) mg/dL Microbiology - Last 24 Hours (Table) 10/27/22 11:45 Blood Culture - Preliminary Blood No Growth after 48 hours 10/27/22 12:00 Blood Culture - Preliminary Blood No Growth after 48 hours 10/28/22 08:16 Gram Stain - Preliminary Sputum Sputum Culture - Preliminary Assessment and Plan Plan: Assessment and Plan: Active: Multifocal pneumonia, likely viral Nonproductive cough Elevated d dimer Diabetes mellitus -Pulmonology note reviewed: Continue Rocephin and Zithromax, Legionella urine antigen pending cultures if cultures are negative will discontinue antibiotics DC home tomorrow -Sputum cultures pending -If improving, consider discharge tomorrow as patient not requiring any oxygen -CT negative for PE -On sliding scale insulin, no changes Chronic: Hypertension Coronary artery disease GERD Asuncion DVT ppx: Subcu heparin Code status: Full code Anticipated discharge place: Home Anticipated discharge time: Likely tomorrow
[2022-10-29 16:21] LABS: Glucose,Whole Blood 119 mg/dL (70-110)
[2022-10-29 21:14] LABS: Glucose,Whole Blood 135 mg/dL (70-110)
[2022-10-29] MEDS: ATORVASTATIN 20 MG TAB PO SCH (21:38)
[2022-10-30] MEDS: guaiFENesin SYRUP 100MG/5ML 200 MG/10 ML CUP PO SCH (05:27)
[2022-10-30 06:11] LABS: Glucose,Whole Blood 120 mg/dL (70-110)
--- NOTE | 2022-10-30 07:49 | XR ---
EXAMINATION TYPE: XR chest 1V portable DATE OF EXAM: 10/30/2022 6:39 AM COMPARISON: Chest radiographs from 10/27/2022, CTA chest 10/27/2022 TECHNIQUE: XR chest 1V portable Portable AP radiograph of the chest. CLINICAL INDICATION:Female, 66 years old with history of ? viral pneumonia; FINDINGS: Lungs/Pleura: No pneumothorax pleural effusion. Improved aeration of the right lower lung. Pulmonary vascularity: Unremarkable. Heart/mediastinum: Cardiomediastinal silhouette is unremarkable. Musculoskeletal: No acute osseous pathology. IMPRESSION: Improved aeration of the right lower lung when compared to prior examination.
[2022-10-30] MEDS: INSULIN ASPART (NovoLOG) 100 UNIT/ML VIAL SQ SCH ×2 (08:00→12:53)
[2022-10-30 08:37] VITALS: BP 148/78; PULSE 72; RESP 18; TEMP 97.4
[2022-10-30] MEDS: HEPARIN SODIUM,PORCINE/PF 5,000 UNIT/0.5 ML SYRINGE SQ SCH (09:02)
[2022-10-30] MEDS: LOSARTAN 50 MG TAB PO SCH (09:02)
[2022-10-30] MEDS: hydroCHLOROthiazide 25 MG TAB PO SCH (09:03)
[2022-10-30] MEDS: CLOPIDOGREL 75 MG TAB PO SCH (09:03)
[2022-10-30] MEDS: AZITHROMYCIN 500 MG TAB PO SCH (09:03)
[2022-10-30] MEDS: METOPROLOL TARTRATE 50 MG TAB PO SCH (09:03)
[2022-10-30] MEDS: PANTOPRAZOLE 40 MG TABLET PO SCH (09:03)
[2022-10-30] MEDS: ASPIRIN 81 MG PO SCH (09:03)
[2022-10-30] MEDS: ALBUTEROL HFA INHALER INHALATION SCH ×2 (09:09→12:06)
[2022-10-30 09:12] LABS: Basophils # (A) 0.08 X 10*3/uL (0.00-0.10); Basophils % (A) 0.8 %; Eosinophils # (A) 0.21 X 10*3/uL (0.04-0.35); Eosinophils % (A) 2.1 %; HGB 14.2 g/dL (12.0-15.0); Immature Grans, Automated 1.1 %; Lymphocytes # (A) 3.54 X 10*3/uL (0.90-5.00); Lymphocytes % (A) 34.9 %; MCH 30.3 pg (27.0-32.0); MCV 91.7 fL (80.0-97.0); Mean Platelet Volume 11.1 fL (9.5-12.2); Monocytes # (A) 0.69 X 10*3/uL (0.20-1.00); Monocytes % (A) 6.8 %; NRBC Per 100 WBC 0 /100 WBCS (0.0-0.0); Neutrophils % (A) 54.3 %; Platelet Count 285 X 10*3/uL (140-440); RBC 4.69 X 10*6/uL (4.10-5.20); RDW 13.2 % (11.5-14.5); WBC 10.13 X 10*3/uL (4.50-10.00)
[2022-10-30 09:31] LABS: African American GFR (CKD) 77.8 (60.0-200.0); Albumin 3.9 g/dL (3.8-4.9); Albumin/Globulin Ratio 1.11 (1.60-3.17); Anion Gap 11.3 mmol/L (10.00-18.00); BUN/Creat Ratio 19.11 Ratio (12.00-20.00); Blood Urea Nitrogen 17.2 mg/dL (9.0-27.0); Calcium 9.9 mg/dL (8.7-10.3); Carbon Dioxide 24.7 mmol/L (20.0-27.5); Globulin 3.5 g/dL (1.6-3.3); Non-African American GFR(CKD) 67.1 (60.0-200.0); Potassium 4.6 mmol/L (3.5-5.5); Total Bilirubin 0.3 mg/dL (0.30-1.20); Total Protein 7.4 g/dL (6.2-8.2)
[2022-10-30 11:31] LABS: Glucose,Whole Blood 112 mg/dL (70-110)
--- NOTE | 2022-10-30 13:38 | P.PN ---
Subjective Progress Note Date: 10/30/22 66-year-old female patient presenting with increased cough and dyspnea and chest pain and shortness of breath. The patient started getting sick around we can go her condition was progressively getting worse and for that reason she ended up running into the hospital. Initial chest x-ray showed right pulmonary infiltrates and the CAT scan of the chest was done that showed extensive bilateral pulmonary patchy interstitial infiltrates bilaterally. Note the patient denies having any fever. She is expressing shortness of breath. No pleurisy. No hemoptysis. She has infected 5 [place]. She has obstructive sleep apnea. Not utilizing CPAP therapy. No travel history. No aspiration. She has been vaccinated for Covid 19. The vital screening including RSV Covid 19 and influenza came back negative. Legionella urine antigen was sent and is also still pending for now. As mentioned, despite extensive pulmonary infiltration, she has a pulse ox of 99% on room air oxygen. The patient has no significant leukocytosis. No other sick contacts. No recurrent pneumonias. She is diabetic and she has hypertension and coronary artery disease. The patient is seen today 10/29/2022 in follow-up on the regular medical floor. She is awake and alert in no acute distress. She is resting comfortably in bed. Maintaining good O2 saturations in the 90s on room air. Her pro-calcitonin was negative at 0.06. She states she is not sure if she ever had Covid 19 infection. She tested negative this admission. Sputum culture pending. Blood culture reveals no growth to date. White count 11.5. Hemoglobin 13.4. Sodium 139. Potassium 4.9. Bicarb 27. BUN 17.6. Creatinine 0.9. Glucose 123. She is currently on ceftriaxone and azithromycin along with bronchodilators. Heparin for DVT prophylaxis. The patient is seen today 10/30/2022 in follow-up on the regular medical floor. She is up ambulating in her room. Awake and alert in no acute distress. Breathing is back to her baseline. Maintaining good O2 saturations in the 90s on room air. Chest x-ray shows significant improvement in aeration of the right lower lung. Sputum culture revealed no growth. Blood cultures revealed no growth. White count 10.1. Hematoma 14.2. Sodium 135. Potassium 4.6. Bicarb 25. BUN 17. Creatinine 0.9. Glucose 117. Pro-calcitonin was negative at 0.06. Antibiotics were discontinued. She remains on bronchodilators and a prednisone taper. Tessalon Perles and Robitussin for cough. Heparin for DVT prophylaxis. Objective - Vital Signs Vital signs: Vital Signs Temp 97.4 F L 10/30/22 07:56 Pulse 72 10/30/22 07:56 Resp 18 10/30/22 07:56 BP 148/78 10/30/22 07:56 Pulse Ox 97 10/30/22 09:09 FiO2 Intake & Output 10/29/22 10/30/22 10/30/22 18:59 06:59 18:59 Intake Total 50 250 236 Balance 50 250 236 Intake: Intake, IV Titration 50 Amount cefTRIAXone 1 gm In 50 Sodium Chloride 0.9% 50 ml @ 100 mls/hr IVPB Q24HR [facility] Rx#:[id number] Oral 250 236 Other: Voiding Method Toilet Toilet # Voids 1 - Exam GENERAL EXAM: Alert, 66-year-old female, on room air, comfortable in no apparent distress. HEAD: Normocephalic. EYES: Normal reaction of pupils, equal size. NOSE: Clear with pink turbinates. THROAT: No erythema or exudates. NECK: No masses, no JVD. CHEST: No chest wall deformity. LUNGS: Equal air entry with few scattered crackles. CVS: S1 and S2 normal with no audible murmur, regular rhythm. ABDOMEN: No hepatosplenomegaly, normal bowel sounds, no guarding or rigidity. SPINE: No scoliosis or deformity SKIN: No rashes CENTRAL NERVOUS SYSTEM: No focal deficits, tone is normal in all 4 extremities. EXTREMITIES: There is no peripheral edema. No clubbing, no cyanosis. Peripheral pulses are intact. - Labs CBC & Chem 7: 10/30/22 04:13 10/30/22 04:13 Labs: Abnormal Lab Results - Last 24 Hours (Table) 10/29/22 10/29/22 10/30/22 Range/Units 16:20 21:12 04:13 WBC 10.13 H (4.50-10.00) X 10*3/uL Immature Gran # 0.11 H (0.00-0.04) X 10*3/uL Glucose (70-110) mg/dL POC Glucose (mg/dL) 119 H 135 H (70-110) mg/dL Globulin (1.6-3.3) g/dL Albumin/Globulin Ratio (1.60-3.17) g/dL 10/30/22 10/30/22 10/30/22 Range/Units 04:13 06:09 11:30 WBC (4.50-10.00) X 10*3/uL Immature Gran # (0.00-0.04) X 10*3/uL Glucose 117 H (70-110) mg/dL POC Glucose (mg/dL) 120 H 112 H (70-110) mg/dL Globulin 3.5 H (1.6-3.3) g/dL Albumin/Globulin Ratio 1.11 L (1.60-3.17) g/dL Microbiology - Last 24 Hours (Table) 10/28/22 08:16 Gram Stain - Final Sputum Sputum Culture - Final 10/27/22 11:45 Blood Culture - Preliminary Blood No Growth after 48 hours 10/27/22 12:00 Blood Culture - Preliminary Blood No Growth after 48 hours Assessment and Plan Assessment: Bilateral pneumonia, acute/subacute, exact cause is not clear. Could be atypical/viral. Pro-calcitonin 0.06. Not likely bacterial. Despite extensive infiltration, there is no evidence of any significant leukocytosis or oxygen desaturation. As such, other noninfectious causes of bilateral pulmonary infiltration need to be considered. Antibiotics discontinued. Follow-up chest x-ray reveals significant improvement in aeration in the right lower lung. Near complete resolution. Obstructive sleep apnea, not tolerant to CPAP therapy Coronary artery disease Hypertension Diabetes mellitus Plan: The patient was seen and evaluated Chest x-ray, labs and medications reviewed Cleared for discharge from the pulmonary standpoint Complete a course of prednisone taper starting at 30 mg daily for 3 days Follow-up in our office in 1 week I have personally seen and examined the patient, performed the documentation and the assessment and plan as written. Number of minutes spent on the visit: 10.
--- NOTE | 2022-10-30 15:19 | P.DS ---
Providers Date of admission: 10/27/22 13:52 Expected date of discharge: 10/30/22 Attending physician: Nixon Castillo MD Consults: 10/27/22 14:32 Consult Physician Routine Consulting Provider: Verenice Vargas Consult Reason/Comments: groundglass opacities Do you want consulting provider notified?: Yes Primary care physician: [facility] Course: 66-year-old female with a past medical history of hypertension, diabetes, GERD who presents to the ED with worsening cough that started 5 days ago. In the ED patient was satting 100% on room air. Patient's COVID-19 was negative. Her labs were unremarkable. Patient had no fever or leukocytosis. In the ED CTA chest was negative for pulmonary embolism but did show peripheral groundglass and airspace opacities. Patient admitted for multifocal pneumonia. Patient was started on Rocephin and azithromycin for concerns of community-acquired pneumonia. Pulmonology was consulted. Pro-calcitonin was negative. Antibiotics were discontinued. Pulmonology started the patient on prednisone. She did not require any supplemental oxygen during her hospitalization. Urine Legionella was pending at the time of discharge. Sputum and blood cultures were negative at the time of discharge. Patient was seen and examined. No acute events overnight. Patient reports significant improvement in her breathing. She continues to complain of dry cough. Pertinent studies include chest x-ray, chest CTA General: non toxic, no distress, appears at stated age Derm: warm, dry Head: atraumatic, normocephalic, symmetric Eyes: EOMI, no lid lag, anicteric sclera Mouth: no lip lesion, mucus membranes moist Cardiovascular: S1S2 reg, no murmur Lungs: CTA bilateral, no rhonchi, no rales , no accessory muscle use Ext: no gross muscle atrophy, no edema, no contractures Neuro: no focal neuro deficits Psych: Alert, oriented, appropriate affect Patient be discharged home with a Medrol Dosepak, Tessalon and albuterol inha ler. She is advised follow-up with her PCP within 1-2 days of discharge. She is advised follow-up with pulmonology within 1 week of discharge. Discharge diagnoses: Multifocal pneumonia, likely viral Nonproductive cough Elevated d dimer Diabetes mellitus This complex discharge took 35 minutes to complete. Patient Condition at Discharge: Stable Plan - Discharge Summary Discharge Rx Participant: Yes New Discharge Prescriptions: New methylPREDNISolone Dose Pack [Medrol Dose Pack] 4 mg PO DIRECTED #1 packet Benzonatate [Tessalon Perles] 200 mg PO TID PRN #30 cap PRN Reason: Cough Albuterol Inhaler [Ventolin Hfa Inhaler] 2 puff INHALATION RT-QID PRN #1 each PRN Reason: Shortness Of Breath Continue Omeprazole [PriLOSEC] 20 mg PO DAILY Metoprolol Tartrate [Lopressor] 50 mg PO BID Aspirin EC [Ecotrin Low Dose] 81 mg PO DAILY Nitroglycerin Sl Tabs [Nitrostat] 0.4 mg SUBLINGUAL Q5M PRN #25 tab PRN Reason: Chest Pain Acetaminophen [Tylenol] 650 mg PO Q6H PRN PRN Reason: Pain hydroCHLOROthiazide [Hydrodiuril] 25 mg PO DAILY Clopidogrel [Plavix] 75 mg PO DAILY Ibuprofen [Motrin] 800 mg PO Q8H PRN PRN Reason: Pain Losartan Potassium 100 mg PO DAILY Rosuvastatin [Crestor] 10 mg PO HS Dulaglutide [Trulicity] 1.5 mg SQ BAPTISTE Discontinued Azithromycin [Zithromax] 500 mg PO DAILY Discharge Medication List Aspirin EC [Ecotrin Low Dose] 81 mg PO DAILY 05/10/14 [History] Metoprolol Tartrate [Lopressor] 50 mg PO BID 05/10/14 [History] Omeprazole [PriLOSEC] 20 mg PO DAILY 05/10/14 [History] Nitroglycerin Sl Tabs [Nitrostat] 0.4 mg SUBLINGUAL Q5M PRN #25 tab 09/03/19 [Rx] Acetaminophen [Tylenol] 650 mg PO Q6H PRN 11/06/19 [History] Clopidogrel [Plavix] 75 mg PO DAILY 02/10/20 [History] hydroCHLOROthiazide [Hydrodiuril] 25 mg PO DAILY 02/10/20 [History] Dulaglutide [Trulicity] 1.5 mg SQ BAPTISTE 03/26/22 [History] Ibuprofen [Motrin] 800 mg PO Q8H PRN 07/24/22 [History] Losartan Potassium 100 mg PO DAILY 10/27/22 [History] Rosuvastatin [Crestor] 10 mg PO HS 10/27/22 [History] Albuterol Inhaler [Ventolin Hfa Inhaler] 2 puff INHALATION RT-QID PRN #1 each 10/30/22 [Rx] Benzonatate [Tessalon Perles] 200 mg PO TID PRN #30 cap 10/30/22 [Rx] methylPREDNISolone Dose Pack [Medrol Dose Pack] 4 mg PO DIRECTED #1 packet 10/30/22 [Rx] Follow up Appointment(s)/Referral(s): Peggy Araujo MD [STAFF PHYSICIAN] - 11/14/22 10:45 am Theo Fairbanks DO [Primary Care Provider] - 1-2 days (office is closed at time of discharge. Please call to schedule appointment ) Discharge Disposition: HOME SELF-CARE
[2022-10-31] MEDS ORDERED: predniSONE 10 MG TAB PO SCH (09:00)
== END 2022-10-30 13:29 | disposition home or self-care (01) ==
LOC: EC 11:28 → INTOOBSV 13:52 → 4SSUR 13:52
PROVIDERS: ADMIT Internal Medicine; ATTEND Internal Medicine
DX: J18.8 Other pneumonia, unspecified organism (principal); R79.1 Abnormal coagulation profile; E11.9 Type 2 diabetes mellitus without complications; I25.2 Old myocardial infarction; I10 Essential (primary) hypertension; K21.9 Gastro-esophageal reflux disease without esophagitis; D68.51 Activated protein C resistance; Z95.5 Presence of coronary angioplasty implant and graft; Z20.822 Contact with and (suspected) exposure to COVID-19; Z90.49 Acquired absence of other specified parts of digestive tract; Z90.710 Acquired absence of both cervix and uterus; Z98.890 Other specified postprocedural states; G47.33 Obstructive sleep apnea (adult) (pediatric); I25.10 Atherosclerotic heart disease of native coronary artery without angina pectoris; Z80.9 Family history of malignant neoplasm, unspecified; Z82.49 Family history of ischemic heart disease and other diseases of the circulatory system; Z79.85 Long-term (current) use of injectable non-insulin antidiabetic drugs; Z79.82 Long term (current) use of aspirin; Z79.02 Long term (current) use of antithrombotics/antiplatelets; Z79.899 Other long term (current) drug therapy; Z88.0 Allergy status to penicillin
CPT/HCPCS: 96366 ×3; 96367; 96372 ×4; 96376; 96365; 96375; 99285; 36415; 94640 ×8; 94760 ×3; 93005; 85379; 83880; 80053 ×2; 80048; 87449; 83605; 83735; 84484; 85025 ×3; 85610; 85730; 87040; 87070; 87205; 83036; 84145; 87635; 87636; 71045; 71046; 71275; G0378 ×4; J1100; J0696 ×4; J1956; Q9967; J1644 ×4

== ENCOUNTER → 2023-02-27 | Outpatient (CLI) | payer MEDICARE ==
--- NOTE | 2023-02-28 07:46 | BD ---
EXAMINATION TYPE: Axial Bone Density DATE OF EXAM: 02/27/2023 CLINICAL HISTORY: 67 years old Female. ICD-10 CODE: M85.9DISORDER OF BONE DENSITY ,Z12.31 Height: 5 ft 2 in Weight: 223 FRAX RISK QUESTIONS: Alcohol (3 or more units per day): no Family History (Parent hip fracture): no Glucocorticoids (More than 3mos): no (Ex: prednisone, prednisolone, methylprednisolone, dexamethasone, and hydrocortisone). History of Fracture in Adulthood: no Secondary Osteoporosis: 1. Type 1 Diabetes: type 2 2. Hyperthyroidism: no 3. Menopause before 45: yes 4. Malnutrition: no 5. Chronic liver disease: no Rheumatoid Arthritis: no Current Tobacco Use: no RISK FACTORS HISTORY OF: Surgery to Spine/Hip(right/left)/Wrist (right/left): no Family History of Osteoporosis: no Active: yes Diet low in dairy products/other sources of calcium: no Postmenopausal woman: yes Take estrogen and/or progesterone medications: no Lost more than 2 inches in height since high school: no Frequent falls: no Poor Health: good Hyperparathyroidism: no Adrenal Insufficiency: no MEDICATIONS: Additional Medications: trulicity, hydrochlorothiazide, Rosuvastatin, Clopidogrel, omeprazole, metopr olol, losartan, nitroglycerin as needed Additional History: carpal tunnel surg EXAM MEASUREMENTS: Bone mineral densitometry was performed using the [employer] System. Bone mineral density as measured about the Lumbar spine is: ----- L1-L4(G/cm2): 1.120 T Score Values are as follows: ----- L1: -0.6 ----- L2: -0.7 ----- L3: -0.3 ----- L4: -0.5 ----- L1-L4: -0.5 Z Score Values are as follows: ----- L1: -0.2 ----- L2: -0.2 ----- L3: 0.1 ----- L4: -0.1 ----- L1-L4: -0.1 baseline Bone mineral density about the R hip (g/cm2): 0.756 Bone mineral density about the L hip (g/cm2): 0.801 T Score values are as follows: -----R Neck: -2.0 -----L Neck: -1.7 -----R Total: -0.8 -----L Total: -0.5 Z Score values are as follows: -----R Neck: -1.3 -----L Neck: -1.0 -----R Total: -0.4 -----L Total: -0.1 baseline FRAX%s: The graph provided illustrates a 9.8 % chance for a major osteoporotic fx and a 1.5 % chance for the hips probability for fx in 10 years time. IMPRESSION: Osteopenia (T Score between -2.5 and -1). There is slightly increased risk of fracture and the patient may be considered for treatment. Re-Screen 2-5 years. NOTE: T-SCORE=SD OF THE YOUNG ADULT MEAN.
--- NOTE | 2023-02-28 20:24 | MM ---
Reason for Exam: Screening (asymptomatic). Last mammogram was performed 1 year(s) and 6 month(s) ago. Patient History: Menarche at age 13. First Full-Term at age 18. Left ovary removed at age 36. Right ovary removed at age 36. Hysterectomy at age 36. Postmenopausal. Paternal aunt had breast cancer. Risk Values: Kristin 5 year model risk: 1.2%. NCI Lifetime model risk: 4.4%. Prior Study Comparison: 06/17/2017 Bilateral Screening Mammogram, [facility]. 06/18/2018 Bilateral Screening Mammogram, [facility]. 09/15/2021 Bilateral Screening Mammogram, [facility]. Tissue Density: There are scattered fibroglandular densities. Findings: Analyzed By CAD. Unchanged low axillary tail lymph node on the left. There is no suspicious group of microcalcifications or new suspicious mass in either breast. Overall Assessment: Benign, BI-RAD 2 Management: Screening Mammogram of both breasts in 1 year. . Patient should continue monthly self-breast exams. A clinical breast exam by your physician is recommended on an annual basis. This exam should not preclude additional follow-up of suspicious palpable abnormalities. Note on Kristin scores and lifetime risk: 1. A Kristin score greater than 3% is considered moderate risk. If this is the case, consider specialist referral to assess eligibility for a risk reducing agent. 2. If overall lifetime risk for the development of breast cancer is 20% or higher, the patient may qualify for future screening with alternating mammogram and breast MRI. Electronically signed and approved by: Bc Yancey M.D. Radiologist
== END | disposition home or self-care (01) ==
LOC: RADBDWWP 15:24
PROVIDERS: ATTEND Family Medicine
DX: Z12.31 Encounter for screening mammogram for malignant neoplasm of breast (principal); M85.89 Other specified disorders of bone density and structure, multiple sites; E10.9 Type 1 diabetes mellitus without complications; Z78.0 Asymptomatic menopausal state; Z80.3 Family history of malignant neoplasm of breast
CPT/HCPCS: 77063; 77067; 77080

== ENCOUNTER → 2023-04-23 | Outpatient (CLI) | payer MEDICARE ==
--- NOTE | 2023-04-23 14:29 | P.SLEEP ---
History of Present Illness H&P Date: 04/23/23 67-year-old female patient, presented to the sleep Center regarding his sleep apnea. The patient was offered a CPAP device many years back. The patient was diagnosed having mild MORIS with an AHI of 8. Back then, the patient had poor sleep quality, increased fatigue and tiredness and sleepiness and she was offered a CPAP unit. Initially, she was supposed to be on a CPAP pressure of 6. I subsequently switched her pressure to APAP mode pressures of 5/12 cm of water. The patient's last evaluation with me in the office was back in 2019. Over the past 3 or 4 years, the patient's compliance is important the patient has utilizes machine on and off. Based on a one-year compliancy, the patient utilized the machine 45 out of 10 and 65 days and she has achieved more than 4 hours only 12 out of 365 days. The patient is having difficulties in tolerating higher CPAP pressures. Note that the average pressure delivered by the CPAP unit is around 11.7 cm of water. She is using an Airfit F20 fullface mask small size and her leak is in order of 1 L/m. Had AHI while on therapy is less than 5. More recently, she has sustained a myocardial infarction and the patient underwent coronary stenting. She is interested in restarting her treatment back. She needs supplies. She is also further advice on the pressure settings. She is snoring and she is tired and fatigued and feeling sleepy during the day. Her sleep schedule is essentially unchanged. She occasionally wakes up in the middle of the night choking and gasping for air. She has chronic fatigue with limited hypersomnia. Her [place] score is at 1. Her weight is essentially the same and her current body weight is 231 pounds. No sleepwalking. No sleep talking. No sleep paralysis. No hallucinations. No cataplexy. Review of Systems Constitutional: Reports as per HPI, Reports daytime sleepiness, Reports fatigue Eyes: denies as per HPI, denies blurred vision, denies bulging eye, denies decreased vision, denies diplopia, denies discharge, denies dry eye, denies irritation, denies itching, denies pain, denies photophobia, denies loss of peripheral vision, denies loss of vision, denies tunnel vision/blind spots Ears: deny: decreased hearing, ear discharge, earache, tinnitus Ears, nose, mouth and throat: Reports as per HPI Breasts: absent: as per HPI, change in shape, gynecomastia, masses, nipple discharge, pain, skin changes, swelling Cardiovascular: Reports as per HPI Respiratory: Reports sleep apnea, Reports snoring Gastrointestinal: Reports as per HPI Genitourinary: Reports as per HPI Menstruation: Reports as per HPI Musculoskeletal: Reports as per HPI Musculoskeletal: absent: ankle pain, ankle stiffness, ankle swelling Integumentary: Reports as per HPI Neurological: Reports as per HPI Psychiatric: Reports as per HPI Endocrine: Reports as per HPI Hematologic/Lymphatic: Reports as per HPI Allergic/Immunologic: Reports as per HPI Past Medical History Past Medical History: Coronary Artery Disease (CAD), Diabetes Mellitus, GERD/Reflux, Hypertension, Sleep Apnea/CPAP/BIPAP Additional Past Medical History / Comment(s): FACTOR V CARRIER Last Myocardial Infarction Date:: 09/03/2019 History of Any Multi-Drug Resistant Organisms: None Reported Past Surgical History: Appendectomy, Cholecystectomy, Heart Catheterization, Heart Catheterization With Stent, Hysterectomy Additional Past Surgical History / Comment(s): ISABELL CARPAL TUNNEL. pneumonia Past Anesthesia/Blood Transfusion Reactions: No Reported Reaction Date of Last Stent Placement:: 09/03/2019 Past Psychological History: No Psychological Hx Reported Past Alcohol Use History: None Reported - Past Family History Mother Family Medical History: Hypertension Additional Family Medical History / Comment(s): HEART PROBLEMS Father Family Medical History: Cancer Additional Family Medical History / Comment(s): heart problems Medications and Allergies Home Medications Medication Instructions Recorded Confirmed Type Aspirin EC [Ecotrin Low Dose] 81 mg PO DAILY 05/10/14 10/27/22 History Metoprolol Tartrate [Lopressor] 50 mg PO BID 05/10/14 10/27/22 History Omeprazole [PriLOSEC] 20 mg PO DAILY 05/10/14 10/27/22 History Nitroglycerin Sl Tabs [Nitrostat] 0.4 mg SUBLINGUAL Q5M PRN #25 tab 09/03/19 10/27/22 Rx Acetaminophen [Tylenol] 650 mg PO Q6H PRN 11/06/19 10/27/22 History Clopidogrel [Plavix] 75 mg PO DAILY 02/10/20 10/27/22 History hydroCHLOROthiazide [Hydrodiuril] 25 mg PO DAILY 02/10/20 10/27/22 History Dulaglutide [Trulicity] 1.5 mg SQ BAPTISTE 03/26/22 10/27/22 History Ibuprofen [Motrin] 800 mg PO Q8H PRN 07/24/22 10/27/22 History Losartan Potassium 100 mg PO DAILY 10/27/22 10/27/22 History Rosuvastatin [Crestor] 10 mg PO HS 10/27/22 10/27/22 History Albuterol Inhaler [Ventolin Hfa 2 puff INHALATION RT-QID PRN #1 10/30/22 Rx Inhaler] each Benzonatate [Tessalon Perles] 200 mg PO TID PRN #30 cap 10/30/22 Rx methylPREDNISolone Dose Pack 4 mg PO DIRECTED #1 packet 10/30/22 Rx [Medrol Dose Pack] Allergies Allergy/AdvReac Type Severity Reaction Status Date / Time Penicillins Allergy Unknown Swelling, Verified 10/27/22 14:31 Rash/hives Physical Exam BP is 123/72, pulse is 58, respirations 12, temperature 97.2 and pulse ox is 99% on room air oxygen. Body mass index is 41.9. The size of the neck is 15 inche s. Weight is 235 pounds The patient appeared well nourished and normally developed. Vital signs as documented. Head exam is unremarkable. No scleral icterus or corneal arcus note d. Neck is without jugular venous distension, thyromegaly, or carotid bruits. The patient is a Mallampati class IV with significant crowding of the posterior oropharynx. Carotid upstrokes are brisk bilaterally. Lungs are clear to auscultation and percussion. Cardiac exam reveals the PMI to be normally sized and situated. Rhythm is regular. First and second heart sounds normal. No murmurs, rubs or gallops. Abdominal exam reveals normal bowel sounds, no masses, no organomegaly and no aortic enlargement. Extremities are nonedematous and both femoral and pedal pulses are normal.Examination of the skin revealed no evidence of significant rashes, suspicious appearing nevi or other concerning lesions.Neurologically, the patient is awake and alert and the patient does not have any focal neurological deficit. Cranial nerves are essentially intact. Assessment and Plan Plan: Obstructive sleep apnea, mild at baseline with an AHI of 8. Patient continues to have difficulties in tolerating her CPAP unit. Initially started on CPAP later on to an APAP mode and a compliancy over the years has been essentially poor. Chronic fatigue with limited hypersomnia and [place] score of 1 Obesity with a BMI 41.9 Coronary artery disease with recent SD and coronary stenting Hypertension Hyperlipidemia Diabetes mellitus type 2 Plan I manually tried that his CPAP pressures on this patient. Obviously she is having difficulties with exhalation. I was able to gradually increase of pressure and the patient was unable to tolerate any CPAP unit pressures above 7 cm of water. Based on that, I took her off APAP mode and I lowered his CPAP pressure down to 7 cm of water starting pressure being at 4. I gave her 30 minutes ramp time. I also dropped the humidity down to 3 and the temperature of the tubing was set at 65F. She'll be kept on an Airfit F20 fullface mask small size. The patient will see me back in the office and 30-90 days to reevaluate her compliancy. No need to restudy the patient and there is no need to update her device at this point. Sleep Note - Sleep Note Sleep Note: Temperature: Pulse Rate: Respiratory Rate: Blood Pressure: SpO2: Height: Weight: BMI: Neck Circumference:
== END ==
LOC: 3 N SLEEP 13:25
PROVIDERS: ATTEND Internal Medicine Critical Care Medicine
DX: G47.33 Obstructive sleep apnea (adult) (pediatric) (principal); E66.9 Obesity, unspecified; I25.10 Atherosclerotic heart disease of native coronary artery without angina pectoris; I10 Essential (primary) hypertension; E78.5 Hyperlipidemia, unspecified; E11.9 Type 2 diabetes mellitus without complications; R53.82 Chronic fatigue, unspecified; K21.9 Gastro-esophageal reflux disease without esophagitis; I25.2 Old myocardial infarction; Z68.41 Body mass index [BMI] 40.0-44.9, adult; Z88.0 Allergy status to penicillin; Z79.899 Other long term (current) drug therapy; Z79.85 Long-term (current) use of injectable non-insulin antidiabetic drugs; Z79.02 Long term (current) use of antithrombotics/antiplatelets; Z79.82 Long term (current) use of aspirin; Z95.5 Presence of coronary angioplasty implant and graft
CPT/HCPCS: 99211

== ENCOUNTER → 2023-07-30 | Outpatient (CLI) | payer MEDICARE ==
--- NOTE | 2023-07-30 16:34 | P.PN ---
Progress Note - Text Progress Note Date: 07/30/23 On 07/30/2023, I'm seeing the patient for a follow-up regarding her MORIS treatment. The patient is a known case of mild obstructive sleep apnea. AHI was 8. Nevertheless, she stated that she was benefiting from the treatment and she is trying to establish improved compliancy. During her last evaluation, I did a an office trial of various pressures and I ultimately dropped the pressure down to 7 cm of water. I kept the patient on a Airfit F 20 fullface mask. Noted prior to that, the patient was on a APAP mode pressures of 5/12 cm of water. I noted that the patient was unable to tolerate higher pressures. Based on that, I lowered the pressure down to 7 cm of water. On today's evaluation, compliancy check was done and based on the data that has been collected between 06/30/2023 and 07/29/2023, the patient has achieved on 3 hours and 5 minutes of CPAP use per night. At age has not 1.5. No significant leaks around the mask. She wants to improve her compliancy. She wants to try different masks and she is very much consistent nasal masks at this point in time. She has no other new complaints. Her blood pressures noted to be slightly elevated. She reports improvement in her fatigue and sleepiness whenever she is on CPAP therapy and as such she is trying to become more compliant. BP is 159/84 with a pulse of 94 and respirations 16 and a temperature of 97.1. Pulse ox is 99% on room air. Weight is 242. The patient appeared well nourished and normally developed. Vital signs as documented. Head exam is unremarkable. No scleral icterus or corneal arcus noted. Neck is without jugular venous distension, thyromegaly, or carotid bruits. Carotid upstrokes are brisk bilaterally. Lungs are clear to auscultation and percussion. Cardiac exam reveals the PMI to be normally sized and situated. Rhythm is regular. First and second heart sounds normal. No murmurs, rubs or gallops. Abdominal exam reveals normal bowel sounds, no masses, no organomegaly and no aortic enlargement. Extremities are nonedematous and both femoral and pedal pulses are normal.Examination of the skin revealed no evidence of significant rashes, suspicious appearing nevi or other concerning lesions.Neurologically, the patient is awake and alert and the patient does not have any focal neurological deficit. Cranial nerves are essentially intact. Assessment Symptomatic mild obstructive sleep apnea with an AHI of 8. Currently on CPAP pressure of 7 cm of water. Chronic hypersomnia and fatigue, improving with CPAP therapy Suboptimal compliant to CPAP therapy Obesity with a BMI of 41.9 Coronary artery disease with previous coronary stenting and recent myocardial infarction Hypertension Hyperlipidemia Diabetes mellitus type 2 Plan I'm going to drop his CPAP pressures over 6 cm of water. At the same time, I'm going to offer the patient an Airfit N20 medium-size nasal mask. I think we should further improve the patient's overall compliancy. Encourage weight loss. Optimize sleep hygiene measures. We'll continue to follow and the patient is going to be seen in a year's time in follow-up.
== END ==
LOC: 3 N SLEEP 14:45
PROVIDERS: ATTEND Internal Medicine Critical Care Medicine
DX: G47.33 Obstructive sleep apnea (adult) (pediatric) (principal); G47.10 Hypersomnia, unspecified; R53.83 Other fatigue; E66.9 Obesity, unspecified; E11.9 Type 2 diabetes mellitus without complications; E78.5 Hyperlipidemia, unspecified; I10 Essential (primary) hypertension; I25.10 Atherosclerotic heart disease of native coronary artery without angina pectoris; I25.2 Old myocardial infarction; Z68.41 Body mass index [BMI] 40.0-44.9, adult; Z95.5 Presence of coronary angioplasty implant and graft; Z88.0 Allergy status to penicillin; Z79.899 Other long term (current) drug therapy; Z79.85 Long-term (current) use of injectable non-insulin antidiabetic drugs; Z79.02 Long term (current) use of antithrombotics/antiplatelets; Z79.82 Long term (current) use of aspirin
CPT/HCPCS: 99212

== ENCOUNTER → 2023-12-30 | Outpatient (CLI) | payer MEDICARE ==
--- NOTE | 2023-12-30 13:17 | US ---
EXAMINATION TYPE: US venous doppler duplex LE LT DATE OF EXAM: 12/30/2023 1:02 PM COMPARISON: NONE CLINICAL INDICATION: Female, 68 years old with history of M79.662 PAIN IN LLE; SIDE PERFORMED: TECHNIQUE: The lower extremity deep venous system is examined utilizing real time linear array sonog phu with graded compression, doppler sonography and color-flow sonography. VESSELS IMAGED: Common Femoral Vein Deep Femoral Vein Greater Saphenous Vein * Femoral Vein Popliteal Vein Small Saphenous Vein * Proximal Calf Veins (* superficial vessels) Left Leg: Negative for DVT pop fossa complex cyst seen = 4.2 x 3.1cm *negative findings to Wendy at office IMPRESSION: Grayscale, color doppler, spectral doppler imaging performed of the deep veins of the lo wer extremities. There is normal flow, compressibility, vascular waveforms.
== END | disposition home or self-care (01) ==
LOC: RADUSWWP 12:25
PROVIDERS: ATTEND Family Medicine
DX: M79.662 Pain in left lower leg (principal); R22.42 Localized swelling, mass and lump, left lower limb

== ENCOUNTER → 2024-01-16 | Outpatient (CLI) | payer MEDICARE ==
--- NOTE | 2024-01-16 11:29 | MR ---
EXAMINATION TYPE: MR knee LT wo con DATE OF EXAM: 01/16/2024 COMPARISON: 07/06/2019 HISTORY: Pain TECHNIQUE: Multiplanar, multisequence imaging of the left knee is performed without IV contrast. FINDINGS: MEDIAL MENISCUS: Intrasubstance signal findings suspicious for posterior horn linear tear. LATERAL MENISCUS: Intrasubstance signal seen in the posterior horn of favor myxoid degeneration. CRUCIATE LIGAMENTS: The anterior and posterior cruciate ligaments are intact and unremarkable. COLLATERAL LIGAMENTS: The medial collateral ligament and lateral collateral ligament complex are inta ct and unremarkable. EXTENSOR MECHANISM: Visualized quadriceps and patellar tendons are intact. EFFUSION: No significant suprapatellar joint effusion. POPLITEAL CYST: There is a fluid heterogeneous mixed signal lesion in the medial popliteal fossa lik adiel representing a complicated popliteal fossa cyst measuring 3 x 1.5 x 5 cm. Chronic tendinopathy of the medial gastrocnemius. TRICOMPARTMENT SPACES: The joint spaces are preserved. Marginal spurring of the patella noted with mi ld osteoarthritis of the medial and patellofemoral compartments with joint space. No erosive changes. CARTILAGE: There is a large area of abnormal signal involving the medial femoral articular surface co mpatible with chondromalacia measuring the width of 9 mm in AP dimension of 16 mm. Small free fragmen t component not excluded. BONE MARROW SIGNAL: No focal abnormal marrow signal is appreciated. IMPRESSION: 1. There is a large 8 x 16 mm area of abnormal signal involving the medial femoral articular cartilag e compatible with chondromalacia. A tiny free fragment is not excluded. 2. Findings suspicious for posterior horn medial meniscal tear. Intrasubstance signal seen in the pos terior horn of the lateral meniscus. Favor myxoid degeneration over linear tear. 3. Large complicated popliteal fossa cyst measuring 3 x 1.5 x 1.5 cm.
== END | disposition home or self-care (01) ==
LOC: RADMRIMAIN 09:44
PROVIDERS: ATTEND Orthopaedic Surgery
DX: M94.262 Chondromalacia, left knee (principal); M71.22 Synovial cyst of popliteal space [Baker], left knee

== ENCOUNTER → 2024-02-03 | Outpatient (CLI) | payer MEDICARE ==
[2024-02-03 14:26] LABS: Basophils # (A) 0.05 X 10*3/uL (0.00-0.10); Basophils % (A) 0.8 %; Eosinophils # (A) 0.09 X 10*3/uL (0.04-0.35); Eosinophils % (A) 1.5 %; HCT 40.5 % (37.2-46.3); Lymphocytes # (A) 1.88 X 10*3/uL (0.90-5.00); Lymphocytes % (A) 31.6 %; MCH 30.2 pg (27.0-32.0); MCHC 32.1 g/dL (32.0-37.0); Mean Platelet Volume 12.1 FL (9.5-12.2); Monocytes # (A) 0.54 X 10*3/uL (0.20-1.00); Monocytes % (A) 9.1 %; NRBC Per 100 WBC 0 X 10*3/uL (0.00-0.01); Neutrophils # (A) 3.37 X 10*3/uL (1.80-7.70); Neutrophils % (A) 56.8 %; Platelet Count 245 X 10*3/uL (140-440); RBC 4.31 X 10*6/uL (4.10-5.20); RDW 12.6 % (11.5-14.5); WBC 5.94 X 10*3/uL (4.50-10.00)
[2024-02-03 14:52] LABS: ALT 41 U/L (8-44); AST 34 U/L (13-35); Albumin 4.4 g/dL (3.8-4.9); Albumin/Globulin Ratio 1.42 Ratio (1.60-3.17); Alkaline Phosphatase 56 U/L (41-126); BUN/Creat Ratio 17.64 Ratio (12.00-20.00); Blood Urea Nitrogen 19.4 mg/dL (9.0-27.0); Calcium 9.9 mg/dL (8.7-10.3); Carbon Dioxide 23.4 mmol/L (21.6-31.8); Chloride 99 mmol/L (96-109); Chol/HDL Ratio 2.75 Ratio; Creatine Kinase 43 U/L (26-186); Globulin 3.1 g/dL (1.6-3.3); Glucose 162 mg/dL (70-110); LDL Cholesterol,Calculated 46.6 mg/dL (0.0-131.0); Potassium 4.2 mmol/L (3.5-5.5); Sodium 137 mmol/L (135-145); Total Bilirubin 0.4 mg/dL (0.3-1.2); Total Protein 7.5 g/dL (6.2-8.2)
[2024-02-03 21:19] LABS: Microalbumin Creatinine Ratio <8 mg/g Cr (0-30)
== END | disposition home or self-care (01) ==
LOC: LABPAT 08:18
PROVIDERS: ATTEND Orthopaedic Surgery
DX: Z01.812 Encounter for preprocedural laboratory examination (principal); M23.92 Unspecified internal derangement of left knee
CPT/HCPCS: 36415; 80053; 80061; 82043; 82306; 82550; 82570; 84443; 85025

== ENCOUNTER → 2024-02-03 | Outpatient (CLI) | payer MEDICARE | END | disposition home or self-care (01) | LOC: LABWHC1 08:14 | PROVIDERS: ATTEND Family Medicine | DX: Z53.9 Procedure and treatment not carried out, unspecified reason (principal) ==

== ENCOUNTER 2024-02-27 09:09 | Day surgery (SDC) | payer MEDICARE ==
--- NOTE | 2024-02-26 14:15 | HP ---
HISTORY AND PHYSICAL DATE OF SURGERY: 02/27/2024. HISTORY OF PRESENT ILLNESS: Katie Rodriguez is a 68-year-old patient, who was seen with progressive left knee pain. After having treatment options discussed, she elected to proceed with left knee arthroscopy. Consent was obtained. Preoperative cardiac clearance was provided. PAST MEDICAL HISTORY: Cardiovascular disease, hypertension, hyperlipidemia, [id number]-[id number] diabetes. PAST SURGICAL HISTORY: Carpal tunnel release, appendectomy, hysterectomy, cholecystectomy. DAILY MEDICATIONS: 1. Omeprazole. 2. Plavix. 3. Aspirin. 4. Hydrochlorothiazide. 5. Losartan. 6. Metoprolol. 7. Ozempic. 8. Rosuvastatin. ALLERGIES: Penicillin. SOCIAL HISTORY: She denies tobacco use. PHYSICAL EVALUATION OF THE LEFT KNEE: Range of motion is 0 to 130 degrees. Tenderness along the medial joint line. Positive medial Zainab's. Ligaments stable. Hip rotation without pain. Distal neurovascular exam intact. IMAGING STUDIES: Radiographs of the left knee revealed mild osteoarthritis. MRI of left knee revealed medial meniscal tear, popliteal cyst, and chondromalacia. IMPRESSION: 1. Internal derangement of left knee with medial meniscal tear. 2. Hypertension. 3. [id number]-ozahxinro diabetes. 4. Cardiovascular disease. PLAN: Left knee arthroscopy with partial medial meniscectomy and debridement. MMODL / IJN: [id number] /
[~2024-02-27 09:09] MED LIST changes: -DEXAMETHASONE SOD PHOSPHATE 4 MG/ML 1 ML VIAL IV ONE; -LACTATED RINGERS 1,000 ML IV SCH; +LIDOCAINE 1% (10MG/ML) FOR IV START INTRADERMA PRN; +MIDAZOLAM 2 MG/2 ML VIAL IV PRN; -ONDANSETRON 4 MG/2 ML VIAL IVP ONE; +fentaNYL (PF) 50 MCG/ML 2 ML AMP IVP PRN
[2024-02-27] MEDS: IV FLUID CONTINUATION 1,000 ML IV ONE (09:45)
[2024-02-27 10:03] LABS: Glucose,Whole Blood 107 mg/dL (70-110)
[2024-02-27] MEDS: DEXAMETHASONE SOD PHOSPHATE 4 MG/ML 1 ML VIAL IV ONE (10:08)
[2024-02-27] MEDS: LACTATED RINGERS 1,000 ML IV SCH (10:08)
[2024-02-27] MEDS: ONDANSETRON 4 MG/2 ML VIAL IVP ONE (10:08)
[2024-02-27] MEDS ORDERED: LIDOCAINE 1% INJ 10MG/ML (20 ML MDV) ONE (11:15)
[2024-02-27] MEDS ORDERED: SUCCINYLCHOLINE CHLORIDE 200 MG/10 ML VIAL IV ONE (11:15)
[2024-02-27] MEDS ORDERED: HYDROmorphone (PF) 1 MG/ML ONE (11:15)
[2024-02-27] MEDS ORDERED: fentaNYL (PF) 50 MCG/ML 2 ML AMP ONE (11:15)
[2024-02-27] MEDS ORDERED: PROPOFOL 10 MG/ML 20 ML VIAL IV ONE (11:15)
[2024-02-27] MEDS ORDERED: MIDAZOLAM 2 MG/2 ML VIAL ONE (11:15)
[2024-02-27] MEDS: BUPIVACAINE (PF) 0.25% 30 ML VIAL SQ ONE ×2 (11:20→11:59)
--- NOTE | 2024-02-27 12:14 | P.OP ---
Date of Procedure: 02/27/24 Preoperative Diagnosis: Internal derangement left knee Postoperative Diagnosis: 1. Tear medial and lateral meniscus left knee 2. Grade IV chondromalacia medial femoral condyle left knee 3. Reactive synovitis medial, lateral and suprapatellar compartments left knee 4. Grade II/III chondromalacia femoral sulcus left knee Procedure(s) Performed: 1. Arthroscopic partial medial and lateral meniscectomy left knee 2. Arthroscopic microfracture medial femoral condyle left knee 3. Arthroscopic partial synovectomy medial, lateral and suprapatellar compartments left knee 4. Arthroscopic chondroplasty femoral sulcus left knee Anesthesia: MASOUDA, local Surgeon: Melquiades Williamson Estimated Blood Loss (ml): 7 Pathology: none sent Condition: stable Disposition: PACU Indications for Procedure: 68-year-old patient seen with progressive left knee pain. After treatment options were discussed, she elected to proceed with arthroscopy. Operative Findings: See description of procedure Description of Procedure: Patient was taken to the operative suite. Patient underwent a general anesthetic by the department of anesthesia. Patient was given preoperative antibiotics. The left lower extremity was placed in a well-padded arthroscopic leg pike. The left leg was prepped and draped in the normal sterile orthopedic fashion. A lateral parapatellar and suprapatellar incision was made. Trochars were inserted. Arthroscopy was initiated. Suprapatellar pouch revealed diffuse thick reactive synovitis. The patellofemoral joint appeared to articular congruently. There was grade II/III chondromalacia of the femoral sulcus with diffuse osteochondral flap tears present. The scope was guided into the medial gutter. No loose bodies or plica were identified the scope was then guided into the medial compartment. A medial parapatellar incision was made. Trocar inserted followed by probe. There was a tear involving the posterior horn of the medial meniscus. There was grade III/IV chondromalacia along the medial femoral condyle along the medial femoral condyle in a fairly large area that measured about 2 x 3 cm with peripheral osteochondral flap tears. There was thick reactive synovitis anteriorly. I performed a partial medial meniscectomy getting down to stable meniscal tissue. I performed a chondroplasty of the medial femoral condyle getting down to stable osteochondral tissue. I performed a partial synovectomy decompressing the reactive synovitis. At this point there was a fairly large area of grade IV chondromalacia along the medial femoral condyle. I introduced a microfracture awl and I performed a microfracture to 4 separate areas of the exposed bone medial femoral condyle penetrating the bone in all 4 areas with resultant bleeding at the microfracture sites in all 4 areas. The residual meniscus was probed and was found to be stable. The residual osteochondral surface was stable. There was good decompression of the synovitis. Scope and probe were then guided into the intercondylar notch. Cruciates were identified, probed and found to be stable. The scope and probe were then guided into lateral compartment. There was a there were grade I chondromalacia changes of the lateral compartment with no tears. There was thick reactive synovitis anteriorly. I performed a partial lateral meniscectomy getting down to stable meniscal tissue. I performed a partial synovectomy decompressing the reactive synovitis. The residual meniscus was stable. There was good decompression of the synovitis. The scope was in guided back into the suprapatellar compartment. I now introduced a motorized shaver into the suprapatellar compartment. I debrided some piecemeal fragments of meniscus that I encountered. I performed a chondroplasty of the femoral sulcus getting down to stable osteochondral tissue. I performed a partial synovectomy decompressing thick reactive synovitis anteriorly. The shaver was now removed. The residual osteochondral surface of the femoral sulcus was stabl e. There was good decompression of the synovitis. I now took 1 more look around the entire knee, no residual debris. Instruments were now removed from the joint. The joint was infiltrated with .25% Marcaine. Steri-Strips were applied to the portal sites. Sterile dressings were applied. The patient was placed into a AB hose. No tourniquet was utilized. The patient was awakened, transferred to a bed and taken to recovery stable satisfactory condition.
[2024-02-27 12:20] VITALS: TEMP 96.8
[2024-02-27] MEDS: HYDROmorphone 0.5 MG/0.5 ML SYRINGE IVP PRN (12:26)
[2024-02-27 14:41] VITALS: BP 120/59; PULSE 74; RESP 17
== END 2024-02-27 15:00 | disposition home or self-care (01) ==
LOC: OR 09:09
PROVIDERS: ATTEND Orthopaedic Surgery
DX: S83.282A Other tear of lateral meniscus, current injury, left knee, initial encounter (principal); S83.242A Other tear of medial meniscus, current injury, left knee, initial encounter; M65.161 Other infective (teno)synovitis, right knee; M22.42 Chondromalacia patellae, left knee; I10 Essential (primary) hypertension; E78.5 Hyperlipidemia, unspecified; E11.9 Type 2 diabetes mellitus without complications; G47.33 Obstructive sleep apnea (adult) (pediatric); I25.10 Atherosclerotic heart disease of native coronary artery without angina pectoris; Z79.84 Long term (current) use of oral hypoglycemic drugs; Z88.0 Allergy status to penicillin; Z90.49 Acquired absence of other specified parts of digestive tract; Z90.710 Acquired absence of both cervix and uterus; Z79.02 Long term (current) use of antithrombotics/antiplatelets; Z79.82 Long term (current) use of aspirin; Z79.899 Other long term (current) drug therapy; Z95.5 Presence of coronary angioplasty implant and graft; X58.XXXA Exposure to other specified factors, initial encounter
CPT/HCPCS: 29879; 29880; J2250; J0330; J1100; J0690; J2405; J2001; J3010; J1170 ×2; J2704; J0665

== ENCOUNTER → 2024-12-01 | Outpatient (CLI) | payer MEDICARE ==
[2024-12-01 14:00] VITALS: BP 129/76; PULSE 72; RESP 16; TEMP 97.8
--- NOTE | 2024-12-01 14:19 | P.PN ---
Progress Note - Text Progress Note Date: 12/01/24 This is a 68-year-old female patient is coming in in follow-up regarding her obstructive sleep apnea. The patient was diagnosed having obstructive sleep apnea back in 2017. At that time, the patient weighed 235 pounds and she was found to have mild obstructive sleep apnea with an AHI of 8. Based on the fact that the patient was having excessive tiredness and sleepiness and fatigue, she was offered CPAP therapy and the patient was treated with CPAP at a pressure of 6 cm of water with great results over the years. Her last evaluation with me was in July 2023 and back. The patient was still using her CPAP. Since then, the patient has lost considerable mount of weight. She was started on Ozempic and she successfully lost weight and she was down to 295 pounds. She has gained some weight and the most recent weight recorded at the sleep center is at 212. She is still having some mild soft snoring. Nevertheless, she has not been told to quit breathing at night. She is sleeping a good 7 hours per night and she is waking up refreshed and alert during the day. No hypersomnia or sleepiness. Does not take any naps during the day. No sleep fragmentation. No nocturia. No morning headaches. No fatigue or tiredness or sleepiness. She did have difficulty tolerating his CPAP machine and based on that she ended up quitting the treatment for the past 9 months and she has felt fine since. No new onset morbidities. She is known to have coronary artery disease and previou s stenting. She has no angina. No palpitations. No reported atrial fibrillation. No stroke. No other cardiovascular complications. Furthermore, she has no restlessness in lower extremities. No sleepwalking or sleep talking. No sleep paralysis. No hallucinations. No cataplexy BP is 129/76, pulse 72, respiration 16 and a temperature is 97.8. Weight is 212 pounds with a pulse ox of 99% room air oxygen Medications include Ozempic 1 mg every week, losartan 100 mg p.o. daily, Imdur 30 mg p.o. daily, Plavix 75 mg p.o. daily, metoprolol 50 mg p.o. daily, hydrochlorothiazide 12.5 mg p.o. daily, glipizide 5 mg p.o. daily, Crestor 10 mg p.o. daily and Protonix 40 mg p.o. daily The patient appeared well nourished and normally developed. Vital signs as documented. Head exam is unremarkable. No scleral icterus or corneal arcus noted. Neck is without jugular venous distension, thyromegaly, or carotid bruits. Carotid upstrokes are brisk bilaterally. Lungs are clear to auscultation and percussion. Cardiac exam reveals the PMI to be normally sized and situated. Rhythm is regular. First and second heart sounds normal. No murmurs, rubs or gallops. Abdominal exam reveals normal bowel sounds, no masses, no organomegaly and no aortic enlargement. Extremities are nonedematous and both femoral and pedal pulses are normal. Examination of the skin revealed no evidence of significant rashes, suspicious appearing nevi or other concerning lesions. Neurologically, the patient is awake and alert and the patient does not have any focal neurological deficit. Cranial nerves are essentially intact. Assessment Mild obstructive sleep apnea with an AHI of 8 based on a sleep study that was done back in 2018. The patient is currently off treatment. She has lost considerable weight while being on Ozempic and she seems to have clinic recovered from sleep apnea. She has some mild soft snoring. No sleep fragmentation. No hypersomnia or sleepiness during the day. The patient is feeling well. She is fully functional during the day. No new onset comorbidities. Her most recent [place] score is at 4 Coronary artery disease with previous coronary stenting, currently free of any angina. No cardiac arrhythmias. Hypertension Hyperlipidemia Diabetes mellitus type 2 Plan Encouraged further weight loss Continue Ozempic Clinically stable and the patient has no major hypersomnia or sleepiness I thought it was reasonable to stop CPAP therapy at this point in time specially the patient is not having any problems with daytime functionality and no reported fatigue and tiredness and sleepiness during the day. An [place] score is only at 4. Will monitor the patient clinically and restart CPAP therapy in the future should she develop any symptoms suggestive of sleep apnea. For now, the patient is asymptomatic and the patient may come off CPAP therapy without any concerns.
== END ==
LOC: 3 N SLEEP 13:17
PROVIDERS: ATTEND Internal Medicine Critical Care Medicine
DX: G47.33 Obstructive sleep apnea (adult) (pediatric) (principal); E11.9 Type 2 diabetes mellitus without complications; E78.5 Hyperlipidemia, unspecified; I10 Essential (primary) hypertension; I25.10 Atherosclerotic heart disease of native coronary artery without angina pectoris; Z79.899 Other long term (current) drug therapy; Z88.0 Allergy status to penicillin; Z95.5 Presence of coronary angioplasty implant and graft
CPT/HCPCS: 99212

== ENCOUNTER → 2025-03-15 | Outpatient (CLI) | payer MEDICARE ==
--- NOTE | 2025-03-15 11:59 | MM ---
Reason for Exam: Screening (asymptomatic). Last mammogram was performed 2 year(s) and 0 month(s) ago. Patient History: Menarche at age 13. First Full-Term at age 18. Left ovary removed at age 36. Right ovary removed at age 36. Hysterectomy at age 36. Postmenopausal. Paternal aunt had breast cancer under age 50. Risk Values: Kristin 5 year model risk: 1.2%. NCI Lifetime model risk: 4.0%. Prior Study Comparison: 06/18/2018 Bilateral Screening Mammogram, [facility]. 09/15/2021 Bilateral Screening Mammogram, [facility]. 02/27/2023 Bilateral MG 3D screening mammo w/cad, [facility]. Tissue Density: There are scattered areas of fibroglandular density. Findings: Analyzed By CAD. Chronic nodularity on the left. There is no suspicious group of microcalcifications or new suspicious mass in either breast. Overall Assessment: Benign, BI-RAD 2 Management: Screening Mammogram of both breasts in 1 year. Patient should continue monthly self-breast exams. A clinical breast exam by your physician is recommended on an annual basis. This exam should not preclude additional follow-up of suspicious palpable abnormalities. Note on Kristin scores and lifetime risk: 1. A Kristin score greater than 3% is considered moderate risk. If this is the case, consider specialist referral to assess eligibility for a risk reducing agent. 2. If overall lifetime risk for the development of breast cancer is 20% or higher, the patient may qualify for future screening with alternating mammogram and breast MRI. [facility], , 03/15/2025 11:52 AM. Electronically signed and approved by: Bc Yancey M.D. Radiologist
== END | disposition home or self-care (01) ==
LOC: RADMAMWWP 08:57
PROVIDERS: ATTEND Family Medicine
DX: Z12.31 Encounter for screening mammogram for malignant neoplasm of breast (principal); R92.323 Mammographic fibroglandular density, bilateral breasts; Z78.0 Asymptomatic menopausal state; Z80.3 Family history of malignant neoplasm of breast
CPT/HCPCS: 77063; 77067